=== PATIENT | female | born 1965 ===

== ENCOUNTER 2024-07-24 09:40 | Inpatient (IN) | payer MEDICARE, MEDICAID, SELFPAY ==
[2024-07-24] VITALS (7 sets, daily range): BP systolic 127–149; BP diastolic 68–78; PULSE 78–104; RESP 16–20; TEMP 36.6–38.7; O2SAT 94–98; BMI 26.6; BMI 26.7
--- NOTE | 2024-07-24 10:27 | XR_ITS ---
Examination: Foot, left, 3 views Technique: AP, oblique, lateral views foot, 3 views Date and time of exam: July 24, 2024 1050 hours Comparison February 15, 2022 INDICATIONS: Patient stepped on a nail 3 weeks ago with redness swelling and pain involving the foot FINDINGS: Soft tissue infection with air density between the first and second digits, soft tissue swelling about the first and second digits No matt cortical bone destruction No opaque foreign body IMPRESSION: Soft tissue infection as above As clinically warranted, MRI foot without contrast follow-up would best assess for osteomyelitis, soft tissue abscess
--- NOTE | 2024-07-24 10:27 | PD.EDRME ---
Rapid Medical Screening Exam RME Arrival date/time: 07/24/24 09:40 58-year-old female presents emergency department complains of infection to left foot patient is febrile tachycardic Sepsis workup initiated Chief Complaint: Ankle/Foot Injury Time Seen by Provider: 07/24/24 09:43 Vital signs: Vital Signs Temperature 101.7 F H 07/24/24 10:23 Pulse Rate 104 H 07/24/24 10:23 Respiratory Rate 20 07/24/24 10:23 Blood Pressure 148/75 H 07/24/24 10:23 Pulse Oximetry (%) 96 07/24/24 10:23 Oxygen Delivery Method Room Air 07/24/24 10:23
[2024-07-24 11:06] LABS: Lactate (Lactic Acid) 1.1 mMol/L (0.4-2.0)
[2024-07-24 11:10] LABS: Basophils # (Auto) 0.1 Thou/mm3 (0.0-0.2); Basophils % (Auto) 0 % (0-2.5); Eosinophils # (Auto) 0.1 Thou/mm3 (0.0-0.5); Eosinophils % (Auto) 0 % (0-10); Hematocrit 26.7 % (36.0-46.0); Hemoglobin 8.9 g/dL (12.0-16.0); Immature Granulocytes % (Auto) 1 % (0-0); Immature Granulocytes Auto 0.19 Thou/mm3 (0.00-0.00); Lymphocytes # (Auto) 1.5 Thou/mm3 (1.0-4.8); Lymphocytes % (Auto) 7 % (10-50); Mean Corpuscular HGB Conc 33.3 g/dl (31.0-37.0); Mean Corpuscular Hemoglobin 26.6 pg (25.0-35.0); Mean Corpuscular Volume 80 fL (80-100); Monocytes # (Auto) 1.4 Thou/mm3 (0.0-0.8); Monocytes % (Auto) 6 % (0-12); Neutrophils % (Auto) 86 % (37-80); Nucleated Red Blood Cell % 0 /100 WBC (0); Platelet Count 509 Thou/mm3 (140-440); RDW Standard Deviation 34.8 fL (36.4-46.3); Red Blood Count 3.34 Miln/mm3 (4.00-5.20); White Blood Count 22.2 Thou/mm3 (3.6-11.0)
[2024-07-24 11:21] LABS: Glucose Estimated Average 266 mg/dL (80-131); Hemoglobin A1C 10.9 % Hgb (4.8-6.0)
[2024-07-24 11:27] LABS: Sed Rate (ESR) 25 mm/hr (0-30)
[2024-07-24 11:33] LABS: INR 1.1 (0.9-1.3); Partial Thromboplastin Time 29.4 Seconds (22.0-36.0); Prothrombin Time 11.5 Seconds (9.0-12.2)
[2024-07-24 11:47] LABS: Alanine Aminotransferase 23 U/L (10-49); Albumin, Serum 4.2 gm/dL (3.5-5.0); Albumin/Globulin Ratio 1.4 (1.2-2.2); Alkaline Phosphatase 81 U/L (46-116); Anion Gap 9 (7-16); Aspartate Amino Transferase 17 U/L (0-34); BUN/Creatinine Ratio 13 Ratio (12-20); Bilirubin,Total 0.3 mg/dL (0.3-1.2); Blood Urea Nitrogen 13 mg/dL (9-23); Calcium 9.1 mg/dL (8.3-10.6); Calcium (Corrected) 9.1 mg/dL (8.5-10.1); Carbon Dioxide 27.9 mMol/L (20.0-31.0); Chloride 94 mMol/L (98-107); Estimated Creatinine Clearance 59.7 mL/min (>60); Glucose 82 mg/dL (74-106); Osmolality,Calculated 261 (275-295); Potassium 3.7 mMol/L (3.4-5.1); Procalcitonin 0.14 ng/ml (0.0-0.49); Sodium 131 mMol/L (136-145); Total Protein 7.2 gm/dL (5.7-8.2); eGFR > 60 See Note
--- NOTE | 2024-07-24 12:43 | EDNOTE_ITS ---
ED General RME/HPI General Chief complaint: Ankle/Foot Injury Stated complaint: LEFT FOOT DIABETIC WOUND Time Seen by Provider: 07/24/24 09:43 Arrival date/time: 07/24/24 09:40 CC: Left foot pain redness swelling tenderness HPI ongoing for the past several weeks worse in the last 24 hours referred from wound management for further evaluation patient is a known diabetic. Has been seen by Dr. Goss for amputation of a toe on the right foot left for foot is currently the problem. The patient denies fever chills blood sugars been running at 300 at home states she is not not able to get it down pain is 6-8 on a 10 scale radiating up the ankle. RME / HPI RME / HPI narrative: 07/24/24 09:40 58-year-old female presents emergency department complains of infection to left foot patient is febrile tachycardic Sepsis workup initiated Related Data Home Medications ?Medication ?Instructions ?Recorded ?Confirmed gabapentin 800 mg tablet 800 mg PO TID 12/29/20 02/23/22 amlodipine 10 mg tablet 1 tab PO QDAY 02/23/22 02/23/22 atorvastatin 40 mg tablet 1 tab PO HS 02/23/22 02/23/22 insulin glargine 100 unit/mL (3 50 unit subcut HS 02/23/22 02/23/22 mL) subcutaneous pen (Basaglar KwikPen U-100 Insulin) levetiracetam 500 mg tablet 1 tab PO BID 02/23/22 02/23/22 lisinopril 40 mg tablet 1 tab PO QDAY 02/23/22 02/23/22 loratadine 10 mg tablet 10 mg PO QDAY PRN ALLERGIES 02/23/22 02/23/22 oxcarbazepine 300 mg tablet 2 tab PO BID 02/23/22 02/23/22 semaglutide 0.25 mg or 0.5 mg (2 0.25 mg subcut QWEEK 02/23/22 02/23/22 mg/1.5 mL) subcutaneous pen injector (Ozempic) Allergies Allergy/AdvReac Type Severity Reaction Status Date / Time animal dander Allergy Severe Swelling Verified 07/24/24 09:41 of Lip/Tongue/Throat bacitracin Allergy Severe Blister Verified 07/24/24 09:41 honey Allergy Severe Swelling Verified 07/24/24 09:41 of Lip/Tongue/Throat sucralose Allergy Severe Swelling Verified 07/24/24 09:41 [From Splenda (sucralose)] of Lip/Tongue/Throat Artificial Sweetener Allergy Severe Swelling Uncoded 07/24/24 09:41 of Lip/Tongue/Throat Review of Systems Review of Systems Narrative Review of Systems: GEN: No fever, no chills, no weight loss EYES: No discharge, no visual changes, no pain HEENT: No ear pain, no congestion, no sore throat PULM: No shortness of breath, no cough, no congestion CV: No chest pain, no dyspnea on exertion, no palpitations GI: No nausea, no vomiting, no diarrhea, no pain, no constipation : No frequency, no urgency, no dysuria MUSC/SKEL: + joint pain, no back pain SKIN: No rash PSYCH: No hallucinations, no depression HEME/LYMPH: No easy bleeding or bruising tendencies NEURO: No weakness, no headache Past Medical History Past Medical History NEUROLOGIC: Positive Neurological Disorders, Brain Tumor and Seizures CARDIAC: Negative Cardiac Disorders or Congestive Heart Failure RESPIRATORY: Negative Chronic Obstructive Pulmonary Disease (COPD) or Asthma GASTROINTESTINAL: Negative Gastrointestinal Disorders GENITOURINARY: Negative Genitourinary Disorders or Renal Disease REPRODUCTIVE: Positive Previous Pregnancies MUSCULOSKELETAL: Positive Musculoskeletal Disorders and Osteoporosis ENT: Positive Cataracts ENDOCRINE: Positive Endocrine Disorders and Diabetes Mellitus Type 2; Negative Diabetes Mellitus Type 1 HEMATOLOGIC: Negative Blood Disorders or Sickle Cell Disease OTHER HISTORY: Positive Chicken Pox; Negative Anesthesia Reactions Family History FAMILY HISTORY: Positive Family Cardiac Disorders and Family Cancer Surgical History SURGICAL: Positive Amputation, Neurologic Surgery and Section Social History SMOKING STATUS: Never smoker SECOND HAND EXPOSURE: No ED Exam Narrative Physical exam: [General: In moderate discomfort not in any acute distress Head normocephalic HEENT: Within acceptable limits Neck is supple nontender Chest equal chest rise nontender to palpation Respiratory: Clear to auscultation no wheezes crackles or rubs CV: Rate rhythm is regular no murmurs rubs or clicks Abdomen is distended secondary to body habitus soft nontender no masses positive bowel sounds all 4 quadrants Back: No CVA tenderness no spinous process tenderness from cervical spine thoracic and lumbar spine Skin: Small open lesions to the left foot but has extensive exudative material underneath the skin on the pad of the foot from the base of the second third and fourth digits extending medially into the arch, all with surrounding erythema that extends over the dorsum of the foot and streaking up the anterior surface of the ankle into the lower leg. Otherwise skin is intact no petechiae rash induration ulceration or crepitus Extremities: Decreased range of motion of the toes in the left foot secondary to pain within the foot. Otherwise moving all extremities against resistance cap refill less than 2 seconds neurosensory intact Neuro: Awake alert oriented x3 Glascow coma 15 no focal deficits] Course Course Course Narrative: Patient seen in the ER by Dr. Goss agrees to consult and will take the patient to the OR tomorrow making the patient n.p.o. after midnight. Quality Measures none Orders Category Date Time Status Consult to General Surgery Stat Cons 07/24/24 14:[address] foot LT wo con Stat Exams 07/24/24 14:35 Ordered XR foot comp LT min 3V Stat Exams 07/24/24 10:27 Completed A1C [Glycohemoglobin w (eAG)] Stat Lab 07/24/24 10:35 Completed Blood Culture (Lab) Stat Lab 07/24/24 10:35 Received CBC Stat Lab 07/24/24 10:35 Completed CMP [Comprehensive Metabolic Panel] Stat Lab 07/24/24 10:35 Completed CRP [C-Reactive Protein] Stat Lab 07/24/24 10:35 Completed ESR [Sed Rate (ESR)] Stat Lab 07/24/24 10:35 Completed Lactic Acid [Lactate (Lactic Acid)] Stat Lab 07/24/24 10:35 Completed PT [Prothrombin Time with INR] Stat Lab 07/24/24 10:35 Completed PTT [Partial Thromboplastin Time] Stat Lab 07/24/24 10:35 Completed Procalcitonin Stat Lab 07/24/24 10:35 Completed UA, C/S IF [Urinalysis, C/S if Indicated] Stat Lab 07/24/24 12:47 Completed Morphine Inj Med 07/24/24 12:40 Discontinued 4 mg IVP X1 ONE Ondansetron Inj [Zofran Inj] Med 07/24/24 12:40 Discontinued 4 mg IV X1 ONE Piper/Tazo 3.375 gm [Zosyn] 50 ml Med 07/24/24 12:45 Discontinued IV X1 Vital Signs Vital signs: Vital Signs Temperature 101.7 F H 07/24/24 10:23 Pulse Rate 104 H 07/24/24 10:23 Respiratory Rate 20 07/24/24 10:23 Blood Pressure 148/75 H 07/24/24 10:23 Pulse Oximetry (%) 96 07/24/24 10:23 Oxygen Delivery Method Room Air 07/24/24 10:23 [facility] Patient data External records reviewed:: [facility] previous records Clinical information provided by:: patient Social determinants that could affect healthcare access:: none Patient has the following chronic illnesses:: Diabetes peripheral neuropathy How is presenting disease/condition affected by chronic disease/condition?: e xacerbated by Evaluation data The following diagnostics were reviewed and interpreted by me:: lab results, radiology exam(s) and EKG tracing(s) Lab and/or radiology exams considered but not ordered:: CBC shows leukocytosis of 22.2 H&H of 8.9 and 26.7 with platelets at 509 CMP shows a sodium 131 potassium 3.4 chloride of 94 CO2 27.9 BUN of 13 creatinine 1.0 with a glucose of 266 CRP is 16.0 Pro-Sony is 0.14. Lactic at 1.1 Soft tissue issues but no overt sign of osteomyelitis. Interpretation Summary: Significant abscess with cellulitis of the left foot. Yes Medications Medications considered but not ordered:: None Medication administrations:: Medication Administration History Discontinued Medications Piperacillin/Tazobactam/Dextrose (Zosyn) 50 mls @ 100 mls/hr IV X1 ONE Stop: 07/24/24 13:14 Last Infusion: 07/24/24 14:04 Dose: Infused Documented By: Admin: 07/24/24 13:13 Dose: 100 mls/hr Documented By: TOYIN Morphine Sulfate (Morphine Sulf Inj 10 Mg/Ml Vial) 4 mg IVP X1 ONE Stop: 07/24/24 12:41 Last Admin: 07/24/24 13:13 Dose: 4 mg Documented By: TOYIN Ondansetron HCl (Ondansetron Inj 2 Mg/Ml Inj 2 Ml) 4 mg IV X1 ONE; Protocol Stop: 07/24/24 12:41 Last Admin: 07/24/24 13:13 Dose: 4 mg Documented By: TOYIN None Consultations Consultation(s) initiated? (list below): Yes Diagnosis Differential Diagnosis ED Complaint MDM: Foot cellulitis foot abscess osteomyelitis Most likely diagnosis given after review of the tests above:: Foot cellulitis Admission Indicated Admission indicated?: indicated Explain why admission is indicated or not indicated:: Further surgical and medical management Admission Request Was there a request for admission?: No Disposition Plan Disposition Plan: Admit Medical Decision Making Differential Diagnosis Differential Diagnosis: Foot cellulitis foot abscess osteomyelitis Lab Data 07/24/24 10:35 07/24/24 10:35 Labs: Lab Results 07/24/24 07/24/24 Range/Units 10:35 12:47 WBC 22.2 H (3.6-11.0) Thou/mm3 RBC 3.34 L (4.00-5.20) Miln/mm3 Hgb 8.9 L (12.0-16.0) g/dL Hct 26.7 L (36.0-46.0) % MCV 80 (80-100) fL MCH 26.6 (25.0-35.0) pg MCHC 33.3 (31.0-37.0) g/dl RDW Std Deviation 34.8 L (36.4-46.3) fL Plt Count 509 H (140-440) Thou/mm3 Neut % (Auto) 86 H (37-80) % Lymph % (Auto) 7 L (10-50) % [place] % (Auto) 6 (0-12) % Eos % (Auto) 0 (0-10) % Baso % (Auto) 0 (0-2.5) % Neut # (Auto) 19.0 H (1.8-7.7) Thou/mm3 Lymph # (Auto) 1.5 (1.0-4.8) Thou/mm3 [place] # (Auto) 1.4 H (0.0-0.8) Thou/mm3 Eos # (Auto) 0.1 (0.0-0.5) Thou/mm3 Baso # (Auto) 0.1 (0.0-0.2) Thou/mm3 Immature Gran # (Auto) 0.19 H (0.00-0.00) Thou/mm3 Absolute Nucleated RBC 0.00 (0.00-0.00) Thou/mm3 Immature Gran % 1 H (0-0) % Nucleated RBC % 0 (0) /100 WBC ESR 25 (0-30) mm/hr PT 11.5 (9.0-12.2) Seconds INR 1.1 (0.9-1.3) APTT 29.4 (22.0-36.0) Seconds Sodium 131 L (136-145) mMol/L Potassium 3.7 (3.4-5.1) mMol/L Chloride 94 L (98-107) mMol/L Carbon Dioxide 27.9 (20.0-31.0) mMol/L Anion Gap 9 (7-16) BUN 13 (9-23) mg/dL Creatinine 1.0 (0.6-1.3) mg/dL Estim Creat Clear Calc 59.7 L (>60) mL/min eGFR > 60 (60 - ) See Note BUN/Creatinine Ratio 13 (12-20) Ratio Glucose 82 (74-106) mg/dL Estimated Ave Glu mg/dL 266 H (80-131) mg/dL Hemoglobin A1c 10.9 H (4.8-6.0) % Hgb Calculated Osmolality 261 L (275-295) Lactic Acid 1.1 (0.4-2.0) mMol/L Calcium 9.1 (8.3-10.6) mg/dL Corrected Calcium 9.1 (8.5-10.1) mg/dL Total Bilirubin 0.3 (0.3-1.2) mg/dL AST 17 (0-34) U/L ALT 23 (10-49) U/L Alkaline Phosphatase 81 (46-116) U/L C-Reactive Prot, Quant 16.0 H (0.0-0.9) mg/dL Total Protein 7.2 (5.7-8.2) gm/dL Albumin 4.2 (3.5-5.0) gm/dL Globulin 3.0 (2.3-3.5) gm/dL Albumin/Globulin Ratio 1.4 (1.2-2.2) Procalcitonin 0.14 (0.0-0.49) ng/ml Ur Collection Type Clean Catch Urine Color Lt-Yellow (Lt Yel-Yel) Urine Clarity Clear (Clear/Hazy) Urine pH 6.5 (5.0-7.0) Ur Specific [place] 1.013 (1.001-1.035) Urine Protein 2+ A (Neg - Trace) Urine Glucose (UA) 3+ A (Negative) Urine Ketones Negative (Negative) Urine Blood 1+ A (Negative) Urine Nitrite Negative (Negative) Urine Bilirubin Negative (Negative) Urine Urobilinogen (Auto) Negative (0.0-1.0) mg/dL Ur Leukocyte Esterase Negative (Negative) Urine RBC 5 H (0-3) /hpf Urine WBC 9 H (0-5) /hpf Ur Squamous Epith Cells 11 H (0-5) /hpf Urine Bacteria None (None) Ur Culture Indicated? Not Indicated Discharge Plan Plan Patient Disposition: Other Care w/in Hosp ([facility]) Prescriptions/Referrals Prescriptions/Med Rec: No Action atorvastatin 40 mg tablet 1 tab PO HS Patient Comments: TAKE 1 TABLET BY MOUTH EVERY DAY levetiracetam 500 mg tablet 1 tab PO BID Patient Comments: TAKE 1 TABLET BY MOUTH TWICE A DAY oxcarbazepine 300 mg tablet 2 tab PO BID Patient Comments: TAKE 2 TABLETS BY MOUTH TWICE A DAY amlodipine 10 mg tablet 1 tab PO QDAY Patient Comments: TAKE 1 TABLET BY MOUTH EVERY DAY lisinopril 40 mg tablet 1 tab PO QDAY Patient Comments: TAKE 1 TABLET BY MOUTH EVERY DAY loratadine 10 mg tablet 10 mg PO QDAY PRN (Reason: ALLERGIES) Patient Comments: TAKE 1 TABLET BY MOUTH DAILY NEEDED ALLERGIES insulin glargine [Basaglar KwikPen U-100 Insulin] 100 unit/mL (3 mL) insulin pen 50 unit SUBCUT HS Patient Comments: INJECT 50 UNITS SUBCUTANEOUSLY EVERY NIGHT Ozempic 0.25 mg or 0.5 mg(2 mg/1.5 mL) pen injector 0.25 mg SUBCUT QWEEK Patient Comments: INJECT 0.25MG UNDER THE SKIN 1 TIME A WEEK gabapentin 800 mg Tablet 800 mg PO TID Referrals: Maribell Metcalf FNP [Primary Care Provider] - In 1 week Problem List Clinical Impression: Cellulitis of left foot Patient/Caregiver Discharge Instructions Print Language: Lao Stand Alone Forms: Sharron Award Info., Patient Portal Info Letter PA/SCREENING REPRESENTATIVE Supervising Physician PA/SCREENING REPRESENTATIVE Supervising Physician: Hudson Perdomo ENP
[2024-07-24 12:55] LABS: Collection Type, Urine Clean Catch
[2024-07-24 13:11] LABS: Bilirubin,Urine Negative (Negative); Blood,Urine 1+ (Negative); Clarity,Urine Clear (Clear/Hazy); Color,Urine Lt-Yellow (Lt Yel-Yel); Culture Indicated,Urine Not Indicated; Glucose, Urine 3+ (Negative); Ketones,Urine Negative (Negative); Leukocyte Esterase,Urine Negative (Negative); Nitrite,Urine Negative (Negative); PH,Urine 6.5 (5.0-7.0); Protein,Urine 2+ (Neg - Trace); RBC,Urine 5 /hpf (0-3); Specific Gravity,Urine 1.013 (1.001-1.035); Squamous Epithelial Cell,Urine 11 /hpf (0-5); Urobilinogen,Urine Negative mg/dL (0.0-1.0); WBC,Urine 9 /hpf (0-5)
[2024-07-24] MEDS: MORPHINE SULF INJ 10 MG/ML VIAL 4 MG IVP (13:13)
[2024-07-24] MEDS: ONDANSETRON INJ 2 MG/ML INJ 2 ML 4 MG IV (13:13)
[2024-07-24] MEDS: PIPER/TAZO 3.375 GM 50 ML IV (13:13)
--- NOTE | 2024-07-24 14:35 | XR_ITS ---
Examination: CT left foot, without contrast. 2-D sagittal reconstructions. 2-D coronal reconstructions. 3-D reconstructions. Date and time of exam:July 24, 2024 1440 hours INDICATIONS: Left foot redness swelling and pain beginning 3 weeks ago CTDI: vol (mGy):4.7 DLP: (mGycm):138 Technique: Multiple 1.25 mm axial sections of the left foot have been obtained. 2-D sagittal and coronal reconstructions have been obtained. 3-D reconstructions have been obtained. Low dose protocols were performed. One or more of the following dose reduction techniques were used; automated exposure control, adjustment of the mA and/or KV according to patient size, use of iterative reconstruction technique. Findings: Soft tissue infection containing air densities between the proximal phalanges first and second digits Axial image 76, coronal image 39 suspicious for early cortical erosion involving the base of the proximal phalanx second digit No pathologic fracture No soft tissue infection with air density extends at the plantar aspect of the foot although way to the base of the first and second metatarsals Extensive edema Soft tissue defect plantar foot coronal image 43 IMPRESSION: Extensive soft tissue infection with gas-forming organisms as above Early osteomyelitis base of the proximal phalanx second digit Recommend MRI foot without contrast follow-up
--- NOTE | 2024-07-24 14:53 | PD.SURCONS ---
HPI Consult details Consult date: 07/24/24 Reason for consultation narrative: Left foot cellulitis with possible abscess History of present illness: 58-year-old female with history of diabetes and peripheral neuropathy has stepped on a nail about 3 weeks ago. She has noted some swelling and erythema of her left foot that has been getting progressively worse. She denies nausea, vomiting, fever or chills. She also denies drainage or bleeding from her wound. X-ray and CT scan revealed significant soft tissue infection. Patient started on IV antibiotics and admitted for further management. Review of Systems Constitutional Constitutional: Denies chills and Denies fever(s) Cardiovascular Cardiovascular: Denies chest pain Respiratory Respiratory: Denies cough Gastrointestinal Gastrointestinal: Denies abdominal pain, Denies nausea and Denies vomiting Genitourinary Genitourinary: Denies difficulty voiding Hematologic/Lymphatic Hematologic/Lymphatic: Denies easy bleeding and Denies easy bruising Past Medical History Surgical History OTHER SURGICAL HX: , craniotomy with excision of brain tumor, right second toe amputation Social History SMOKING STATUS: Former smoker SUBSTANCE USE: does not use ALCOHOL: Former Meds Home Medications and Allergies Home Medications ?Medication ?Instructions ?Recorded ?Confirmed ?Type gabapentin 800 mg tablet 800 mg PO TID 12/29/20 07/24/24 History insulin degludec 200 unit/mL (3 10 unit subcut QDAY 07/24/24 07/24/24 History mL) subcutaneous pen (Tresiba FlexTouch U-200 insulin) insulin lispro 100 unit/mL 10 unit subcut 3XD 07/24/24 07/24/24 History subcutaneous pen (Humalog KwikPen (U-100) Insulin) semaglutide 7 mg tablet (Rybelsus) 7 mg PO QDAY 07/24/24 07/24/24 History Allergies Allergy/AdvReac Type Severity Reaction Status Date / Time animal dander Allergy Severe Swelling Verified 07/24/24 09:41 of Lip/Tongue/Throat bacitracin Allergy Severe Blister Verified 07/24/24 09:41 honey Allergy Severe Swelling Verified 07/24/24 09:41 of Lip/Tongue/Throat sucralose Allergy Severe Swelling Verified 07/24/24 09:41 [From Splenda (sucralose)] of Lip/Tongue/Throat Artificial Sweetener Allergy Severe Swelling Uncoded 07/24/24 09:41 of Lip/Tongue/Throat Exam Vital Signs Temp Pulse Resp BP Pulse Ox O2 Del Method 99.9 F 95 16 149/78 H 98 Room Air 07/24/24 12:23 07/24/24 12:23 07/24/24 12:23 07/24/24 12:23 07/24/24 12:23 07/24/24 12:23 Constitutional Constitutional: no acute distress Routine Extremities Exam Comments: Significant cellulitis and edema of left foot with a callus and blister formation on the plantar aspect. She has palpable dorsalis pedis and posterior tibial pulses Results Results: Laboratory Laboratory results: results reviewed Results: Imaging Imaging narrative: X-ray and CT scan images reviewed, radiologist interpretation noted Assessment & Plan Problem List (1) Cellulitis of left foot: Status: Acute Plan Continue IV antibiotics. Keep patient n.p.o. after midnight for incision and drainage. Risks include but not limited to infection, bleeding, chronic nonhealing wound, need for further procedure and or operation discussed with the patient. Benefits and alternatives explained to her, all her questions answered, she agreed and consented to proceed with the operation.
--- NOTE | 2024-07-24 15:11 | PC.NURSE ---
Patient states pain 9/10. Informed ER provider and received verbal order for 0.5mg hydromorphone
[2024-07-24] MEDS: HYDROmorphone INJ 2 MG/ML VIAL 0.5 MG IVP (15:23)
--- NOTE | 2024-07-24 15:34 | ESHP_ITS ---
<Statement entered by Kojo Valdivia MD - 08/04/24 13:37> I reviewed above note and agree with findings and plans. I have also personally examined the patient with medicine team and went over assessment and plan with medical team including internet marketing specialist and resident physician. Documentation for date of: 07/24/24 HPI History of Present Illness History of present illness: This is a pleasant 76-year-old female with PMHx of longstanding T2DM on INSULIN, severe peripheral neuropathy, seasonal allergies, presenting with left foot swelling and pain. 3 weeks ago, she was walking around her house when she stepped on the [place] of the nail which punctured through her shoes. She has severe peripheral neuropathy, initially did not feel any pain nor noted any swelling. However, over the next few days. She noted increased swelling and purulent discharge for which she was seen by her PCP who prescribed CEFAZOLIN and she was referred to wound care. Last night she experienced new symptoms including fever, chills, and worsening redness over her left foot extending below her ankle as well as increased swelling and discharge. She was seen at wound care today who recommended going to ED. Endorsing fever and chills that started last night. Denies headaches, visual changes, chest pain, shortness of breath, GI or urinary symptoms. She is unclear on when her last tetanus shot was done. ED COURSE: T101.7, HR 104, BP 148/75, RR 20, on room air satting 96%. WBC 22.2, Hgb 8.9, PLT 509, normal coag studies. Sodium 131, CRP 16, GLUCOSE 82, A1c 10.9. Normal creatinine and lactic acid. Right foot x-ray showed soft tissue infection with air density between first and second digit, soft tissue swelling above the first and second digit, no cortical bone destruction. UA was negative for UTI. ED gave ZOSYN x 1. Will admit the patient to [facility] for OR with general surgery tomorrow. PMHx: T2DM on INSULIN, peripheral neuropathy, seasonal allergies PSHx: None MEDS: INSULIN, JARDIANCE, ALLERGIES: METFORMIN, OZEMPIC, INSULIN LANTUS, honey, artificial sweeteners SH: Denies alcohol, tobacco or drug use. Exam Vital Signs Temp Pulse Resp BP Pulse Ox O2 Del Method 99.9 F 95 16 149/78 H 98 Room Air 07/24/24 12:23 07/24/24 12:23 07/24/24 12:23 07/24/24 12:23 07/24/24 12:23 07/24/24 12:23 Narrative Exam GENERAL * Normal-appearing middle-aged female, no apparent distress. HEENT * NCAT.?KENDALL. Oral mucosa is moist. Patent Nares NECK * Supple, nontender, no thyromegaly, no meningismus, no JVD, no step offs CHEST * RRR, no m/g/r * CTAB, no w/r/r. Symmetrical chest rise. No intercostal subcostal retraction * Atraumatic, nontender, no crepitus, symmetrical expansion. ABDOMEN * Soft, flat, nontender. No guarding/rebound tenderness/masses. * Bowel sounds presents EXTREMITIES * Nontender, no cyanosis, no edema * No edema/cyanosis.? * Left foot: Diffuse erythema, swelling, warmth and tenderness extending below the ankle. Puncture wound on plantar aspect, 1 cm in diameter with active serous drainage. There are 2 distinct collections of fluid pockets around the puncture wound with serous and some purulent discharge. * Dorsalis pedis is 2+ bilaterally. * Absent sensation in all distal fingers including upper and lower extremities. Sensation intact over dorsal foot bilaterally. SKIN * Warm and dry, no jaundice/rashes. NEUROMUSCULAR * No lumbar or midline, no CVA, no paraspinal muscle spasm or tenderness. * Moves all 4 extremities well, with full ROM and good CSM. * VILCHIS x4, CN II-XII grossly intact. * No focal neurologic deficits. PSYCHIATRY * Normal mood and affect, cooperative, no SI or HI or hallucinations. Results: Labs 07/24/24 10:35 07/24/24 10:35 Labs: Short CBC 07/24/24 Range/Units 10:35 WBC 22.2 H (3.6-11.0) Thou/mm3 Hgb 8.9 L (12.0-16.0) g/dL Hct 26.7 L (36.0-46.0) % Plt Count 509 H (140-440) Thou/mm3 BMP 07/24/24 10:35 Sodium 131 L Potassium 3.7 Chloride 94 L Carbon Dioxide 27.9 BUN 13 Creatinine 1.0 Glucose 82 Calcium 9.1 Liver Function 07/24/24 Range/Units 10:35 Total Bilirubin 0.3 (0.3-1.2) mg/dL AST 17 (0-34) U/L ALT 23 (10-49) U/L Alkaline Phosphatase 81 (46-116) U/L Albumin 4.2 (3.5-5.0) gm/dL Urine 07/24/24 Range/Units 12:47 Urine Color Lt-Yellow (Lt Yel-Yel) Urine Clarity Clear (Clear/Hazy) Urine pH 6.5 (5.0-7.0) Ur Specific [place] 1.013 (1.001-1.035) Urine Protein 2+ A (Neg - Trace) Urine Glucose (UA) 3+ A (Negative) Quality Measures Quality Measures none Medications Home Medications and Allergies Home Medications ?Medication ?Instructions ?Recorded ?Confirmed ?Type gabapentin 800 mg tablet 800 mg PO TID 12/29/20 07/24/24 History insulin degludec 200 unit/mL (3 10 unit subcut QDAY 07/24/24 07/24/24 History mL) subcutaneous pen (Tresiba FlexTouch U-200 insulin) insulin lispro 100 unit/mL 10 unit subcut 3XD 07/24/24 07/24/24 History subcutaneous pen (Humalog KwikPen (U-100) Insulin) semaglutide 7 mg tablet (Rybelsus) 7 mg PO QDAY 07/24/24 07/24/24 History Allergies Allergy/AdvReac Type Severity Reaction Status Date / Time animal dander Allergy Severe Swelling Verified 07/24/24 09:41 of Lip/Tongue/Throat bacitracin Allergy Severe Blister Verified 07/24/24 09:41 honey Allergy Severe Swelling Verified 07/24/24 09:41 of Lip/Tongue/Throat sucralose Allergy Severe Swelling Verified 07/24/24 09:41 [From Splenda (sucralose)] of Lip/Tongue/Throat Artificial Sweetener Allergy Severe Swelling Uncoded 07/24/24 09:41 of Lip/Tongue/Throat Visit Medications Acetaminophen (Acetaminophen 325 Mg Tablet) 650 mg PO Q6H PRN PRN Reason: PAIN SCALE 1-3 (mild Stop: 08/23/24 15:14 Acetaminophen (Acetaminophen 325 Mg Tablet) 650 mg PO Q6H PRN PRN Reason: Fever >100 Stop: 08/23/24 15:14 Hydrocodone Bitart/Acetaminophen (Hydrocodone/Apap 10/325 Tab) 1 tab PO Q4HR PRN PRN Reason: PAIN SCALE 7-10 (Severe Stop: 07/29/24 15:14 Gabapentin 200 mg/ Gabapentin (600 mg) 800 mg PO TID [facility] Stop: 08/23/24 15:29 Heparin Sodium (Porcine) (Heparin Sod Inj 5000 Unit/Ml Vial) 5,000 unit SC Q8HR JASVIR Stop: 08/07/24 21:59 Montelukast Sodium (Montelukast Sodium 10 Mg Tablet) 10 mg PO HS [facility] Stop: 08/23/24 20:59 Ondansetron HCl (Ondansetron Inj 2 Mg/Ml Inj 2 Ml) 4 mg IV Q6H PRN; Protocol PRN Reason: NAUSEA OR VOMITING Stop: 08/23/24 15:14 Oxycodone/Acetaminophen (Oxycodone/Apap 5/325 Tablet) 1 tab PO Q6H PRN PRN Reason: PAIN SCALE 4-6 (Moderate Stop: 07/29/24 15:14 Pantoprazole Sodium (Pantoprazole Inj 40 Mg Vial) 40 mg IVP QDAY [facility] Stop: 08/23/24 15:14 Discontinued Medications Gabapentin (Gabapentin 300 Mg Capsule) 800 mg PO TID [facility] Stop: 08/23/24 15:29 Hydromorphone HCl (Hydromorphone Inj 2 Mg/Ml Vial) 0.5 mg IVP X1 ONE Stop: 07/24/24 15:14 Last Admin: 07/24/24 15:23 Dose: 0.5 mg Piperacillin/Tazobactam/Dextrose (Zosyn) 50 mls @ 100 mls/hr IV X1 ONE Stop: 07/24/24 13:14 Last Infusion: 07/24/24 14:04 Dose: Infused Morphine Sulfate (Morphine Sulf Inj 10 Mg/Ml Vial) 4 mg IVP X1 ONE Stop: 07/24/24 12:41 Last Admin: 07/24/24 13:13 Dose: 4 mg Ondansetron HCl (Ondansetron Inj 2 Mg/Ml Inj 2 Ml) 4 mg IV X1 ONE; Protocol Stop: 07/24/24 12:41 Last Admin: 07/24/24 13:13 Dose: 4 mg Assessment & Plan Plan In summary: 58-year-old female with PMHx of T2 IDDM admitted for right foot abscess. Patient is n.p.o. for the OR with general surgery tomorrow. Appreciate recommendations from general surgery. Sepsis 2/2 Left foot abscess Left foot cellulutis Presenting 3 weeks after stepping on a nail while wearing her shoes. She was seen by PCP who prescribed a course of ANTIBIOTICS, was following wound care. Denied for admission. She was experiencing stomach symptoms of fever and chills as well as worsening swelling and discharge from her left foot. Met 2/4 sepsis with tachycardia, tachypnea, and leukocytosis and a source of infection. Right foot x-ray showed soft tissue infection with air density between first and second digit, soft tissue swelling above the first and second digit, no cortical bone destruction. Will continue broad ANTIBIOTIC coverage, including antipseudomonal. No indication for aggressive fluid resuscitation, normal creatinine, no lactic acidosis. Will proceed with 1 L bolus. Patient scheduled OR with Dr Goss tomorrow morning. ? Ordered tetanus shot (tetanus shot >10 years ago) ? Continue ZOSYN 3.375 mg Q6H (07/24 to present) ? Continue VANCOMYCIN daily (07/24 to present) ? NPO at midnight ? Morning coags ? Wound care ? Pending CT RLE ? Pending blood cultures T2 IDDM On admission, A1c 10.9, GLUCOSE 82. Home meds include RYBELSUS, TRESIBA 15 HS, lispro 10 TID. Patient has allergy to LANTUS and METFORMIN. ? Continue TRESIBA 15 units HS (patient's home med) ? Continue LISPRO 10 units TID ? Continue sliding scale ? Accu-Cheks Severe peripheral neuropathy Chronic, absent sensation of distal digits in both bilateral UE/LE. ? Continue home GABAPENTIN 800 mg TID HTN (resolved) Denies history of hypertension. Currently not taking any ANTIHYPERTENSIVE medication. Admission BP 148/75, resolved. Currently normotensive. Allergic rhinitis ? Continue LORATADINE 10 mg daily ? Continue MONTELUKAST 10 mg HS Health maintenance Diet: NPO midnight 07/25, CHO consistent GI prophylaxis: PROTONIX DVT prophylaxis: HEPARIN, hold midnight 07/25 Antibiotics: ZOSYN, VANCOMYCIN CODE STATUS: DNR Disposition: OR with general surgery Patient case was discussed with attending, Dr. Kojo Valdivia MD and senior residents Dr. Chambers and Dr. Alex. Dianna Mosley DO PGYI Senior Resident Attestation: The patient is a 76-year-old female with significant past medical history of insulin-dependent diabetes mellitus type 2, severe peripheral neuropathy, seasonal allergy, presented with left foot swelling and puncture injury 3 weeks ago was found to have sepsis secondary to left foot abscess and cellulitis. The patient received 1 L of IV bolus fluid, and was started on vancomycin and Zosyn. General surgeon Dr. Goss was consulted who recommended admitting the patient and keeping the patient n.p.o. after midnight. The plan is to perform I&D along with debridement tomorrow morning. As the patient is allergic to Lantus, we asked the patient to bring her Tresiba from home, and will continue with insulin lispro 10 units 3 times daily. We will continue with home gabapentin 800 Mg 3 times daily. Her other home medicine for allergic rhinitis those were loratadine 10 mg and montelukast 10 mg were continued. I discussed with and supervised the internet marketing specialist physician involved in the care of this patient. I personally saw and examined the patient and discussed the assessment and plan with the entire medicine team, including my attending. I agree with the assessment and plan as documented above. Anson Alex MD PGY2 Internal Medicine
[2024-07-24] MEDS: GABAPENTIN 200 MG, GABAPENTIN 600 MG 800 MG PO (17:03)
[2024-07-24] MEDS: PANTOPRAZOLE INJ 40 MG VIAL IVP (17:05)
[2024-07-24] MEDS: SODIUM CHLORIDE 0.9% 1000 ML 1,000 ML 999 ML IV (17:41)
[2024-07-24] MEDS: VANCOMYCIN/NS 1 GM IVPB 200 ML IV (17:42)
[2024-07-24] MEDS: TETANUS,DIPHTHERIA TOXOIDS/PF (ADULT) 0.5 ML SYRINGE IMi (17:43)
--- NOTE | 2024-07-24 19:33 | PC.NURSE ---
1st contact: Son Shola [phone]; 2nd son Tahir [phone]; Mela Tuttle [phone]
[2024-07-24] MEDS: MONTELUKAST SODIUM 10 MG TABLET PO (21:02)
[2024-07-24] MEDS: HYDROcodone/APAP 10/325 TAB PO (21:02)
[2024-07-24] MEDS: TRESIBA 200 UNIT/ML SC (22:08)
[2024-07-24] MEDS: GABAPENTIN 800 MG TABLET SC (22:32)
[2024-07-24] MEDS: PIPER/TAZO 3.375 GM 3.375 GM/50 ML BAG IV (22:34)
[2024-07-24] MEDS: HEPARIN SOD INJ 5000 UNIT/ML VIAL SC (22:44)
[2024-07-25] VITALS (16 sets, daily range): BP systolic 102–128; BP diastolic 57–78; PULSE 74–87; RESP 12–18; TEMP 36.4–36.9; O2SAT 93–100; BMI 26.6
[2024-07-25] MEDS: HYDROcodone/APAP 10/325 TAB PO ×2 (05:50→21:21)
[2024-07-25 06:07] LABS: Basophils # (Auto) 0.1 Thou/mm3 (0.0-0.2); Basophils % (Auto) 0 % (0-2.5); Eosinophils # (Auto) 0.2 Thou/mm3 (0.0-0.5); Eosinophils % (Auto) 1 % (0-10); Hematocrit 22.2 % (36.0-46.0); Immature Granulocytes % (Auto) 1 % (0-0); Lymphocytes # (Auto) 1.5 Thou/mm3 (1.0-4.8); Lymphocytes % (Auto) 10 % (10-50); Mean Corpuscular HGB Conc 32.9 g/dl (31.0-37.0); Mean Corpuscular Hemoglobin 26.9 pg (25.0-35.0); Mean Corpuscular Volume 82 fL (80-100); Monocytes # (Auto) 0.8 Thou/mm3 (0.0-0.8); Monocytes % (Auto) 5 % (0-12); Neutrophils % (Auto) 82 % (37-80); Nucleated Red Blood Cell % 0 /100 WBC (0); Platelet Count 388 Thou/mm3 (140-440); RDW Standard Deviation 36.3 fL (36.4-46.3); Red Blood Count 2.71 Miln/mm3 (4.00-5.20); White Blood Count 14.6 Thou/mm3 (3.6-11.0)
[2024-07-25] MEDS: PIPER/TAZO 3.375 GM 3.375 GM/50 ML BAG IV ×3 (06:10→21:23)
[2024-07-25 06:15] LABS: Prothrombin Time 11.4 Seconds (9.0-12.2)
[2024-07-25 06:16] LABS: Hemoglobin 7.3 g/dL (12.0-16.0)
[2024-07-25 06:51] LABS: Alanine Aminotransferase 17 U/L (10-49); Albumin, Serum 3.3 gm/dL (3.5-5.0); Albumin/Globulin Ratio 1.3 (1.2-2.2); Alkaline Phosphatase 62 U/L (46-116); Anion Gap 7 (7-16); Aspartate Amino Transferase 16 U/L (0-34); BUN/Creatinine Ratio 14 Ratio (12-20); Bilirubin,Total 0.2 mg/dL (0.3-1.2); Blood Urea Nitrogen 17 mg/dL (9-23); Calcium 8.5 mg/dL (8.3-10.6); Calcium (Corrected) 9.1 mg/dL (8.5-10.1); Chloride 98 mMol/L (98-107); Creatinine (Component) 1.2 mg/dL (0.6-1.3); Estimated Creatinine Clearance 49.9 mL/min (>60); Globulin 2.6 gm/dL (2.3-3.5); Glucose 138 mg/dL (74-106); Magnesium 1.6 mg/dL (1.6-2.6); Osmolality,Calculated 269 (275-295); Phosphorous 4.3 mg/dL (2.4-5.1); Potassium 4.2 mMol/L (3.4-5.1); Sodium 133 mMol/L (136-145); Total Protein 5.9 gm/dL (5.7-8.2); eGFR 53 See Note
--- NOTE | 2024-07-25 08:12 | PD.RESPRO ---
Documentation for date of: 07/25/24 Subjective Subjective Interval history: No acute overnight events. I saw patient after surgery. She feels hungry but well otherwise. No complaint of pain. Denies fever, chills, headaches, chest pain, sob, cough, GI or urinary symptoms. Exam Vital Signs Temp Pulse Resp BP Pulse Ox O2 Del Method 97.8 F 75 17 119/69 98 Room Air 07/25/24 04:00 07/25/24 04:00 07/25/24 04:00 07/25/24 04:00 07/25/24 04:00 07/25/24 04:00 Narrative Exam GENERAL Normal-appearing middle-aged female, no apparent distress. HEENT NCAT.?KENDALL. Oral mucosa is moist. Patent Nares NECK Supple, nontender, no thyromegaly, no meningismus, no JVD, no step offs CHEST RRR, no m/g/r CTAB, no w/r/r. Symmetrical chest rise. No intercostal subcostal retraction Atraumatic, nontender, no crepitus, symmetrical expansion. ABDOMEN Soft, flat, nontender. No guarding/rebound tenderness/masses. Bowel sounds presents EXTREMITIES Nontender, no cyanosis, no edema No edema/cyanosis.? Left foot: dressing dry, intact and in place. No discharge. SKIN Warm and dry, no jaundice/rashes. NEUROMUSCULAR No lumbar or midline, no CVA, no paraspinal muscle spasm or tenderness. Moves all 4 extremities well, with full ROM and good CSM. VILCHIS x4, CN II-XII grossly intact. No focal neurologic deficits. PSYCHIATRY Normal mood and affect, cooperative, no SI or HI or hallucinations. Objective Labs 07/25/24 05:35 07/25/24 05:35 Labs: Laboratory Results - last 24 hr 07/24/24 07/24/24 07/25/24 10:35 12:47 05:35 WBC 22.2 H 14.6 H D RBC 3.34 L 2.71 L Hgb 8.9 L 7.3 L Hct 26.7 L 22.2 L MCV 80 82 MCH 26.6 26.9 MCHC 33.3 32.9 RDW Std Deviation 34.8 L 36.3 L Plt Count 509 H 388 D Neut % (Auto) 86 H 82 H Lymph % (Auto) 7 L 10 [place] % (Auto) 6 5 Eos % (Auto) 0 1 Baso % (Auto) 0 0 Neut # (Auto) 19.0 H 12.0 H Lymph # (Auto) 1.5 1.5 [place] # (Auto) 1.4 H 0.8 Eos # (Auto) 0.1 0.2 Baso # (Auto) 0.1 0.1 Immature Gran # (Auto) 0.19 H 0.10 H Absolute Nucleated RBC 0.00 0.00 Immature Gran % 1 H 1 H Nucleated RBC % 0 0 ESR 25 PT 11.5 11.4 INR 1.1 1.0 APTT 29.4 33.0 Sodium 131 L 133 L Potassium 3.7 4.2 D Chloride 94 L 98 Carbon Dioxide 27.9 28.0 Anion Gap 9 7 BUN 13 17 Creatinine 1.0 1.2 Estim Creat Clear Calc 59.7 L 49.9 L eGFR > 60 53 L BUN/Creatinine Ratio 13 14 Glucose [address] Glu mg/dL 266 H Hemoglobin A1c 10.9 H Calculated Osmolality 261 L 269 L Lactic Acid 1.1 Calcium 9.1 8.5 Corrected Calcium 9.1 9.1 Phosphorus 4.3 Magnesium 1.6 Total Bilirubin 0.3 0.2 L AST 17 16 ALT 23 17 Alkaline Phosphatase 81 62 D C-Reactive Prot, Quant 16.0 H Total Protein 7.2 5.9 Albumin 4.2 3.3 L D Globulin 3.0 2.6 Albumin/Globulin Ratio 1.4 1.3 Procalcitonin 0.14 Ur Collection Type Clean Catch Urine Color Lt-Yellow Urine Clarity Clear Urine pH 6.5 Ur Specific [place] 1.013 Urine Protein 2+ A Urine Glucose (UA) 3+ A Urine Ketones Negative Urine Blood 1+ A Urine Nitrite Negative Urine Bilirubin Negative Urine Urobilinogen (Auto) Negative Ur Leukocyte Esterase Negative Urine RBC 5 H Urine WBC 9 H Ur Squamous Epith Cells 11 H Urine Bacteria None Ur Culture Indicated? Not Indicated Quality Measures Quality Measures none Assessment & Plan Assessment Current Active Medications: Generic Name Dose Route Start Last Admin Trade Name Freq PRN Reason Stop Dose Admin Acetaminophen 650 mg 07/24/24 15:15 Acetaminophen 325 Mg Tablet PO 08/23/24 15:14 Q6H PRN PAIN SCALE 1-3 (mild Acetaminophen 650 mg 07/24/24 15:15 Acetaminophen 325 Mg Tablet PO 08/23/24 15:14 Q6H PRN Fever >100 Hydrocodone Bitart/Acetaminophen 1 tab 07/24/24 15:15 07/25/24 05:50 Hydrocodone/Apap 10/325 Tab PO 07/29/24 15:14 1 tab Q4HR PRN Administration PAIN SCALE 7-10 (Severe Gabapentin 800 Mg 0 ea 07/25/24 08:00 Tablet PO 08/24/24 07:59 TID [facility] Tresiba(Insulin 0 ea 07/25/24 21:00 Degludec) 200 Units/ SC 08/24/24 20:59 Ml Pen HS JASVIR Dextrose 25 ml 07/24/24 16:20 Dextrose 50%-Water Inj 50 Ml Syringe IV 08/23/24 16:19 Q15MIN PRN BG 50-70 responsive npo pt Dextrose 50 ml 07/24/24 16:20 Dextrose 50%-Water Inj 50 Ml Syringe IV 08/23/24 16:19 Q15MIN PRN BG <50 OR BG <70 & pt unresponsive Glucagon 1 mg 07/24/24 16:20 Glucagon Inj 1 Mg Vial IM Q15MIN PRN BG <70, and no IV access Heparin Sodium (Porcine) 5,000 unit 07/24/24 22:00 07/24/24 22:44 Heparin Sod Inj 5000 Unit/Ml Vial SC 08/07/24 21:59 5,000 unit Q8HR JASVIR Administration Piperacillin/Tazobactam/Dextrose 3.375 gm in 50 mls @ 12.5 mls/hr 07/24/24 22:00 07/25/24 06:10 Zosyn IV 07/31/24 21:59 12.5 mls/hr Q8HR JASVIR Administration Vancomycin HCl 250 mls @ 120 mls/hr 07/25/24 10:00 Vancomycin/Water 1250 Mg Ivpb IV 08/01/24 09:59 Q24H [facility] Insulin Human Lispro 10 unit 07/24/24 22:00 07/25/24 06:09 Insulin Lispro (Admelog) 1 Unit/0.01 Ml Unit SC 08/23/24 21:59 Not Given TID [facility] Insulin Human Lispro 0 unit 07/25/24 06:15 07/25/24 06:23 Insulin Lispro (Admelog) 1 Unit/0.01 Ml Unit SC 08/24/24 06:14 Not Given Q6HR [facility] Protocol Loratadine 10 mg 07/25/24 09:00 Loratadine 10 Mg Tablet PO 08/24/24 08:59 QDAY JASVIR Montelukast Sodium 10 mg 07/24/24 21:00 07/24/24 21:02 Montelukast Sodium 10 Mg Tablet PO 08/23/24 20:59 10 mg HS JASVIR Administration Ondansetron HCl 4 mg 07/24/24 15:15 Ondansetron Inj 2 Mg/Ml Inj 2 Ml IV 08/23/24 15:14 Q6H PRN NAUSEA OR VOMITING Protocol Oxycodone/Acetaminophen 1 tab 07/24/24 15:15 Oxycodone/Apap 5/325 Tablet PO 07/29/24 15:14 Q6H PRN PAIN SCALE 4-6 (Moderate Pantoprazole Sodium 40 mg 07/24/24 15:15 07/24/24 17:05 Pantoprazole Inj 40 Mg Vial IVP 08/23/24 15:14 40 mg QDAY JASVIR Administration Pharmacy Consult 1 each 07/24/24 16:15 Vancomycin Pharmacy To Dose 1 Each Each IV 08/23/24 16:14 QDAY PRN CONSULT Plan In summary: 58-year-old female with PMHx of T2 IDDM admitted for right foot abscess. Patient is n.p.o. for the OR with general surgery tomorrow. Appreciate recommendations from general surgery. Left foot abscess Left foot cellulitis S/p I&D with general surgery Sepsis (resolved) Admitted for left foot abscess and cellulitis after stepping on a nail. Septic on admission with 4/4 SIRS: Fever, tachycardia, tachypnea, leukocytosis. Adequately fluid resuscitated. Sepsis resolved. CT showed extensive soft tissue infection with gas-forming organism, early osteomyelitis of proximal phalanx of second digit. Completed uncomplicated I&D with general surgery on 07/25/2024. Continued on VANCOMYCIN and ZOSYN. Cultures pending. ? Continue ZOSYN 3.375 mg Q6H (07/24 to present) ? Continue VANCOMYCIN daily (07/24 to present) ? Wound care ? Pending cultures: Blood and abscess manage T2 IDDM On admission, A1c 10.9, GLUCOSE 138. Home meds include RYBELSUS, TRESIBA 15 HS, lispro 10 TID. Patient has allergy to LANTUS and METFORMIN. ? Continue TRESIBA 15 units HS (patient's home med) ? Continue LISPRO 10 units TID ? Continue sliding scale ? Accu-Cheks Severe peripheral neuropathy Chronic, absent sensation of distal digits in both bilateral UE/LE. ? Continue home GABAPENTIN 800 mg TID HTN (resolved) Denies history of hypertension. Currently not taking any ANTIHYPERTENSIVE medication. Admission BP 148/75, resolved. Currently normotensive. Allergic rhinitis ? Continue LORATADINE 10 mg daily ? Continue MONTELUKAST 10 mg HS Health maintenance Diet:CHO consistent GI prophylaxis: PROTONIX DVT prophylaxis: HEPARIN Antibiotics: ZOSYN, VANCOMYCIN CODE STATUS: DNR Disposition: Pending general surgery recommendations. Patient case was discussed with attending, Dr. Cale REARDON, and senior residents Dr. Chambers and Dr. Alex. Dianna Mosley, DO PGYI Senior Resident Attestation: The patient is s/p I&D of left foot. Will continue with vancomycin and Zosyn. Will continue to monitor her vitals and labs. I discussed with and supervised the international exchange coordinator physician involved in the care of this patient. I personally saw and examined the patient and discussed the assessment and plan with the entire medicine team, including my attending. I agree with the assessment and plan as documented above. Anson Alex MD PGY2 Internal Medicine Attending Provider Attestation/Addendum Patient is status post incision and drainage of left foot abscess by Dr. Goss. Continue current antibiotic treatment. Controlled diabetes.
[2024-07-25] MEDS: lorataDINE 10 MG TABLET PO (09:44)
[2024-07-25] MEDS: PANTOPRAZOLE INJ 40 MG VIAL IVP (09:44)
[2024-07-25] MEDS: VANCOMYCIN/WATER 1250 MG IVPB 250 ML 120 MG IV (09:45)
--- NOTE | 2024-07-25 12:32 | SUR.PHASEI ---
pt arrived to PACU via gurney drowsy but arouses to verbal commands, breathing unlabored, dressing to left foot clean, dry, and intact, report from Adeel JIMENEZ and Dr Whitney
--- NOTE | 2024-07-25 12:58 | PD.SUROPNT ---
Date of Procedure 07/25/24 Pre Op Diagnosis Cellulitis and abscess of left foot Post Op Diagnosis Cellulitis and abscess of left foot Procedure Incision below the fascial level multiple bursal space and drainage of abscess Findings Edema and significant cellulitis of left foot. Small open wound with fluctuance at the plantar aspect Procedure Description Patient brought intraoperative room in supine position. After administration of general tracheal anesthesia, patient's left foot prepped and draped in standard surgical manner. She was noted to have significant cellulitis and edema of left foot with an open wound and area of fluctuance at the mid and plantar aspect. The scabs around opening was excised with a blade. Then any fascia was opened, there were some purulent drainage, cultures were obtained. The area below the fascia was inspected, and there is no evidence of subfascial abscess or infection. A counterincision was made on the dorsal aspect because of significant amount of edema and erythema to make sure there is no extension of abscess. She was found to have some edema but no evidence of abscess. Wound was washed and irrigated copiously thoroughly with Betadine mixed with peroxide and saline and further washed with warm saline. Hemostasis was adequate and satisfactory. The wound was packed with wet-to-dry dressings. Patient tolerated procedure well. She was extubated, breathing spontaneously and without difficulty and was transferred to postanesthesia care in stable condition. Anesthesia GETA Pathology / specimen Other (Cultures from the abscess cavity) Estimated Blood Loss 2 Condition Stable Disposition PACU Surgeon Garrett Goss MD Surgical Staff Operation Date: 07/25/24 12:30 Case Staff Anesthesiologist: Tera Whitney
--- NOTE | 2024-07-25 13:04 | SUR.PHASEI ---
attempted to call report, no answer
--- NOTE | 2024-07-25 13:17 | SUR.PHASEI ---
attempted to call report, no answer, advised community health director-will check phone
--- NOTE | 2024-07-25 13:24 | SUR.PHASEI ---
notified Mustapha charge nurse that attempts to call report were unsuccessful. Mustapha will return my call.
--- NOTE | 2024-07-25 13:53 | SUR.PHASEI ---
pt drowsy but arouses to verbal commands, breathing unlabored, dressing to left foot clean, dry, and intact, report called to Beverly JIMENEZ, pt transferred to room at this time.
[2024-07-25] MEDS: GABAPENTIN 800 MG TABLET PO ×2 (14:08→21:32)
[2024-07-25] MEDS: ZINC SULFATE 220 MG CAPSULE PO (15:25)
--- NOTE | 2024-07-25 15:49 | PC.DIETICIAN ---
1. RD added Flavored Wang 1 pkt BID daily after lunch and dinner, mix with 6-8 oz water for targeted nutrition and wound healing, RN to administer as medication 2. Recommend to add Vitamin C 500mg BID daily, zinc 220mg , Multivitamin-Mineral daily to ensure adequate nutrient intake and promote wound healing. Continue with current diet, plan is ongoing. RD to remain available as requested or needed
[2024-07-25] MEDS: ASCORBIC ACID 250 MG TABLET 500 MG PO (21:20)
[2024-07-25] MEDS: MONTELUKAST SODIUM 10 MG TABLET PO (21:20)
[2024-07-25] MEDS: INSULIN LISPRO (AdmeLOG) 1 UNIT/0.01 ML UNIT SC (21:21)
[2024-07-25] MEDS: HEPARIN SOD INJ 5000 UNIT/ML VIAL SC (21:22)
[2024-07-25] MEDS: TRESIBA 200 UNIT/ML SC (21:24)
[2024-07-26] VITALS: BP 93/53; PULSE 71; RESP 18; TEMP 36.5; O2SAT 94
[2024-07-26 04:00] VITALS: BP 132/70; PULSE 81; RESP 18; TEMP 36.5; O2SAT 96
[2024-07-26] MEDS: HEPARIN SOD INJ 5000 UNIT/ML VIAL SC ×2 (06:08→13:28)
[2024-07-26] MEDS: PIPER/TAZO 3.375 GM 3.375 GM/50 ML BAG IV ×3 (06:08→21:00)
[2024-07-26] MEDS: GABAPENTIN 800 MG TABLET PO ×3 (06:08→21:08)
[2024-07-26 06:19] LABS: Basophils # (Auto) 0.1 Thou/mm3 (0.0-0.2); Basophils % (Auto) 0 % (0-2.5); Eosinophils # (Auto) 0.2 Thou/mm3 (0.0-0.5); Eosinophils % (Auto) 1 % (0-10); Hematocrit 24.8 % (36.0-46.0); Immature Granulocytes % (Auto) 1 % (0-0); Immature Granulocytes Auto 0.07 Thou/mm3 (0.00-0.00); Lymphocytes # (Auto) 1.7 Thou/mm3 (1.0-4.8); Lymphocytes % (Auto) 13 % (10-50); Mean Corpuscular HGB Conc 32.3 g/dl (31.0-37.0); Mean Corpuscular Hemoglobin 26.5 pg (25.0-35.0); Mean Corpuscular Volume 82 fL (80-100); Monocytes # (Auto) 0.8 Thou/mm3 (0.0-0.8); Monocytes % (Auto) 6 % (0-12); Neutrophils # (Auto) 10.6 Thou/mm3 (1.8-7.7); Neutrophils % (Auto) 80 % (37-80); Nucleated Red Blood Cell % 0 /100 WBC (0); Platelet Count 554 Thou/mm3 (140-440); RDW Standard Deviation 37.1 fL (36.4-46.3); Red Blood Count 3.02 Miln/mm3 (4.00-5.20); White Blood Count 13.3 Thou/mm3 (3.6-11.0)
[2024-07-26 06:35] LABS: Alanine Aminotransferase 15 U/L (10-49); Albumin, Serum 3.7 gm/dL (3.5-5.0); Albumin/Globulin Ratio 1.4 (1.2-2.2); Alkaline Phosphatase 65 U/L (46-116); Anion Gap 8 (7-16); Aspartate Amino Transferase 12 U/L (0-34); BUN/Creatinine Ratio 14 Ratio (12-20); Bilirubin,Total 0.3 mg/dL (0.3-1.2); Blood Urea Nitrogen 17 mg/dL (9-23); Calcium 8.9 mg/dL (8.3-10.6); Calcium (Corrected) 9.1 mg/dL (8.5-10.1); Carbon Dioxide 28.4 mMol/L (20.0-31.0); Chloride 98 mMol/L (98-107); Creatinine (Component) 1.2 mg/dL (0.6-1.3); Estimated Creatinine Clearance 49.9 mL/min (>60); Globulin 2.6 gm/dL (2.3-3.5); Glucose 134 mg/dL (74-106); Magnesium 1.9 mg/dL (1.6-2.6); Osmolality,Calculated 271 (275-295); Phosphorous 4.3 mg/dL (2.4-5.1); Potassium 4.1 mMol/L (3.4-5.1); Sodium 134 mMol/L (136-145); Total Protein 6.3 gm/dL (5.7-8.2); eGFR 53 See Note
[2024-07-26 08:00] VITALS: BP 105/67; PULSE 83; RESP 18; TEMP 36.4; O2SAT 95
--- NOTE | 2024-07-26 09:19 | ESPR_ITS ---
Documentation for date of: 07/26/24 Subjective Subjective Interval history: No overnight events. Pain well-controlled. Passing gas and bowel movements. Denies fever, chills, headaches, chest pain, sob, cough, GI or urinary symptoms. Exam Vital Signs Temp Pulse Resp BP Pulse Ox O2 Del Method O2 Flow Rate 97.7 F 81 18 132/70 H 96 Room Air 2 07/26/24 04:00 07/26/24 04:00 07/26/24 04:00 07/26/24 04:00 07/26/24 04:00 07/26/24 04:00 07/25/24 13:45 Narrative Exam GENERAL * Normal-appearing middle-aged female, no apparent distress. HEENT * NCAT.?KENDALL. Oral mucosa is moist. Patent Nares NECK * Supple, nontender, no thyromegaly, no meningismus, no JVD, no step offs CHEST * RRR, no m/g/r * CTAB, no w/r/r. Symmetrical chest rise. No intercostal subcostal retraction * Atraumatic, nontender, no crepitus, symmetrical expansion. ABDOMEN * Soft, flat, nontender. No guarding/rebound tenderness/masses. * Bowel sounds presents EXTREMITIES * Nontender, no cyanosis, no edema * No edema/cyanosis.? * Left foot: dressing dry, intact and in place. No discharge. SKIN * Warm and dry, no jaundice/rashes. NEUROMUSCULAR * No lumbar or midline, no CVA, no paraspinal muscle spasm or tenderness. * Moves all 4 extremities well, with full ROM and good CSM. * VILCHIS x4, CN II-XII grossly intact. * No focal neurologic deficits. PSYCHIATRY * Normal mood and affect, cooperative, no SI or HI or hallucinations. Objective Labs 07/26/24 05:44 07/26/24 05:44 Labs: Laboratory Results - last 24 hr 07/26/24 05:44 WBC 13.3 H RBC 3.02 L Hgb 8.0 L Hct 24.8 L MCV 82 MCH 26.5 MCHC 32.3 RDW Std Deviation 37.1 Plt Count 554 H D Neut % (Auto) 80 Lymph % (Auto) 13 [place] % (Auto) 6 Eos % (Auto) 1 Baso % (Auto) 0 Neut # (Auto) 10.6 H Lymph # (Auto) 1.7 [place] # (Auto) 0.8 Eos # (Auto) 0.2 Baso # (Auto) 0.1 Immature Gran # (Auto) 0.07 H Absolute Nucleated RBC 0.00 Immature Gran % 1 H Nucleated RBC % 0 Sodium 134 L Potassium 4.1 Chloride 98 Carbon Dioxide 28.4 Anion Gap 8 BUN 17 Creatinine 1.2 Estim Creat Clear Calc 49.9 L eGFR 53 L BUN/Creatinine Ratio 14 Glucose 134 H Calculated Osmolality 271 L Calcium 8.9 Corrected Calcium 9.1 Phosphorus 4.3 Magnesium 1.9 Total Bilirubin 0.3 AST 12 ALT 15 Alkaline Phosphatase 65 Total Protein 6.3 Albumin 3.7 Globulin 2.6 Albumin/Globulin Ratio 1.4 Quality Measures Quality Measures none Assessment & Plan Assessment Current Active Medications: Generic Name Dose Route Start Last Admin Trade Name Freq PRN Reason Stop Dose Admin Acetaminophen 650 mg 07/24/24 15:15 Acetaminophen 325 Mg Tablet PO 08/23/24 15:14 Q6H PRN PAIN SCALE 1-3 (mild Acetaminophen 650 mg 07/24/24 15:15 Acetaminophen 325 Mg Tablet PO 08/23/24 15:14 Q6H PRN Fever >100 Hydrocodone Bitart/Acetaminophen 1 tab 07/24/24 15:15 07/25/24 21:21 Hydrocodone/Apap 10/325 Tab PO 07/29/24 15:14 1 tab Q4HR PRN Administration PAIN SCALE 7-10 (Severe Ascorbic Acid 500 mg 07/25/24 21:00 07/25/24 21:20 Ascorbic Acid 250 Mg Tablet PO 08/24/24 20:59 500 mg BID JASVIR Administration Gabapentin 800 Mg 0 ea 07/25/24 08:00 07/26/24 06:08 Tablet PO 08/24/24 07:59 1 tablet TID JASVIR Administration Tresiba(Insulin 0 ea 07/25/24 21:00 07/25/24 21:24 Degludec) 200 Units/ SC 08/24/24 20:59 15 unit Ml Pen HS JASVIR Administration Dextrose 25 ml 07/24/24 16:20 Dextrose 50%-Water Inj 50 Ml Syringe IV 08/23/24 16:19 Q15MIN PRN BG 50-70 responsive npo pt Dextrose 50 ml 07/24/24 16:20 Dextrose 50%-Water Inj 50 Ml Syringe IV 08/23/24 16:19 Q15MIN PRN BG <50 OR BG <70 & pt unresponsive Glucagon 1 mg 07/24/24 16:20 Glucagon Inj 1 Mg Vial IM Q15MIN PRN BG <70, and no IV access Heparin Sodium (Porcine) 5,000 unit 07/24/24 22:00 07/26/24 06:08 Heparin Sod Inj 5000 Unit/Ml Vial SC 08/07/24 21:59 5,000 unit Q8HR JASVIR Administration Piperacillin/Tazobactam/Dextrose 3.375 gm in 50 mls @ 12.5 mls/hr 07/24/24 22:00 07/26/24 06:08 Zosyn IV 07/31/24 21:59 12.5 mls/hr Q8HR JASVIR Administration Vancomycin HCl 250 mls @ 120 mls/hr 07/25/24 10:00 07/25/24 09:45 Vancomycin/Water 1250 Mg Ivpb IV 08/01/24 09:59 120 mls/hr Q24H JASVIR Administration Insulin Human Lispro 10 unit 07/24/24 22:00 07/26/24 05:48 Insulin Lispro (Admelog) 1 Unit/0.01 Ml Unit SC 08/23/24 21:59 Not Given TID JASVIR Insulin Human Lispro 0 unit 07/25/24 21:00 07/26/24 07:37 Insulin Lispro (Admelog) 1 Unit/0.01 Ml Unit SC 08/24/24 20:59 Not Given ACHS [facility] Protocol Loratadine 10 mg 07/25/24 09:00 07/25/24 09:44 Loratadine 10 Mg Tablet PO 08/24/24 08:59 10 mg QDAY JASVIR Administration Montelukast Sodium 10 mg 07/24/24 21:00 07/25/24 21:20 Montelukast Sodium 10 Mg Tablet PO 08/23/24 20:59 10 mg HS JASVIR Administration Ondansetron HCl 4 mg 07/24/24 15:15 Ondansetron Inj 2 Mg/Ml Inj 2 Ml IV 08/23/24 15:14 Q6H PRN NAUSEA OR VOMITING Protocol Oxycodone/Acetaminophen 1 tab 07/24/24 15:15 Oxycodone/Apap 5/325 Tablet PO 07/29/24 15:14 Q6H PRN PAIN SCALE 4-6 (Moderate Pantoprazole Sodium 40 mg 07/24/24 15:15 07/25/24 09:44 Pantoprazole Inj 40 Mg Vial IVP 08/23/24 15:14 40 mg QDAY JASVIR Administration Pharmacy Consult 1 each 07/24/24 16:15 Vancomycin Pharmacy To Dose 1 Each Each IV 08/23/24 16:14 QDAY PRN CONSULT Zinc Sulfate 220 mg 07/25/24 14:42 07/25/24 15:25 Zinc Sulfate 220 Mg Capsule PO 08/24/24 14:41 220 mg QDAY JASVIR Administration Plan In summary: 58-year-old female with PMHx of T2 IDDM admitted for right foot abscess. Completed I&D with general surgery. General surgery recommended another day inpatient until cultures finalized. Will likely discharge 07/27. Appreciate recommendations from general surgery. Left foot abscess Left foot cellulitis S/p I&D with general surgery Sepsis (resolved) Admitted for left foot abscess and cellulitis after stepping on a nail. Septic on admission with 4/4 SIRS: Fever, tachycardia, tachypnea, leukocytosis. Adequately fluid resuscitated. Sepsis resolved. CT showed extensive soft tissue infection with gas-forming organism, early osteomyelitis of proximal phalanx of second digit. Completed uncomplicated I&D with general surgery on 07/25/2024. Continued on VANCOMYCIN and ZOSYN. Will need PICC line for osteomyelitis treatment once blood culture is negative. ? Continue ZOSYN 3.375 mg Q6H (07/24 to present) ? Continue VANCOMYCIN daily (07/24 to present) ? Wound care ? Pending cultures: Blood and abscess manage ? PICC line once 48 blood culture negative T2 IDDM On admission, A1c 10.9, GLUCOSE controlled. Home meds include RYBELSUS, TRESIBA 15 HS, lispro 10 TID. Patient has allergy to LANTUS and METFORMIN. ? Continue TRESIBA 15 units HS (patient's home med) ? Continue LISPRO 10 units TID ? Continue sliding scale ? Accu-Cheks Severe peripheral neuropathy Chronic, absent sensation of distal digits in both bilateral UE/LE. ? Continue home GABAPENTIN 800 mg TID HTN (resolved) Denies history of hypertension. Currently not taking any ANTIHYPERTENSIVE medication. Admission BP 148/75, resolved. Currently normotensive. Allergic rhinitis ? Continue LORATADINE 10 mg daily ? Continue MONTELUKAST 10 mg HS Health maintenance Diet:CHO consistent GI prophylaxis: PROTONIX DVT prophylaxis: HEPARIN Antibiotics: ZOSYN, VANCOMYCIN CODE STATUS: DNR Disposition: Pending general surgery recommendations. Senior Resident Attestation: The patient reported her pain being well controlled. Dr. Goss recommended continuing with IV vanc and zosyn and pain management. We will continue with current insulin regimen and home medications for her chronic conditions. I discussed with and supervised the senior internal auditor physician involved in the care of this patient. I personally saw and examined the patient and discussed the assessment and plan with the entire medicine team, including my attending. I agree with the assessment and plan as documented above. Anson Alex MD PGY2 Internal Medicine Attending Provider Attestation/Addendum Patient is status post incision and drainage of left foot abscess by Dr. Goss. Continue current antibiotic treatment. Monitor blood glucose.. Check culture results Possible osteomyelitis spreading further diagnostic results.
[2024-07-26] MEDS: PANTOPRAZOLE INJ 40 MG VIAL IVP (09:55)
[2024-07-26] MEDS: VANCOMYCIN/WATER 1250 MG IVPB 250 ML 120 MG IV (09:55)
[2024-07-26] MEDS: ZINC SULFATE 220 MG CAPSULE PO (09:55)
[2024-07-26] MEDS: lorataDINE 10 MG TABLET PO (09:56)
[2024-07-26] MEDS: ASCORBIC ACID 250 MG TABLET 500 MG PO ×2 (09:58→21:00)
[2024-07-26 12:00] VITALS: BP 128/68; PULSE 79; RESP 18; TEMP 36.3; O2SAT 94
[2024-07-26] MEDS: INSULIN LISPRO (AdmeLOG) 1 UNIT/0.01 ML UNIT 10 UNIT SC (13:27)
--- NOTE | 2024-07-26 13:30 | PD.SURPROG ---
Documentation for date of: 07/26/24 Subjective Subjective Narrative: Patient is seen and examined. She is feeling much better. Exam Vital Signs Temp Pulse Resp BP Pulse Ox O2 Del Method O2 Flow Rate 97.6 F 83 18 105/67 95 Room Air 2 07/26/24 08:00 07/26/24 08:00 07/26/24 08:00 07/26/24 08:00 07/26/24 08:00 07/26/24 08:00 07/25/24 13:45 Constitutional Constitutional: no acute distress Routine Extremities Exam Comments: Improvement of cellulitis and edema. No bleeding, has minimal purulent drainage Assessment & Plan Assessment Additional comments: Postop day #1 status post I&D of left foot abscess Plan Continue IV antibiotics. Wound care as directed. Procedures Procedures Incision below the fascial level multiple bursal space and drainage of abscess
[2024-07-26 16:00] VITALS: BP 115/65; PULSE 74; RESP 18; TEMP 36.8; O2SAT 96
[2024-07-26] MEDS: INSULIN LISPRO (AdmeLOG) 1 UNIT/0.01 ML UNIT SC ×2 (17:37→21:00)
[2024-07-26 20:00] VITALS: BP 117/67; PULSE 78; RESP 18; TEMP 36.6; O2SAT 95
[2024-07-26] MEDS: MONTELUKAST SODIUM 10 MG TABLET PO (21:00)
[2024-07-26] MEDS: TRESIBA 200 UNIT/ML SC (21:08)
[2024-07-27] VITALS (15 sets, daily range): BP systolic 115–169; BP diastolic 59–87; PULSE 69–86; RESP 15–22; TEMP 36.1–36.7; O2SAT 93–99
[2024-07-27] MEDS: PIPER/TAZO 3.375 GM 3.375 GM/50 ML BAG IV (05:23)
[2024-07-27] MEDS: GABAPENTIN 800 MG TABLET PO ×2 (05:23→14:02)
[2024-07-27] MEDS: INSULIN LISPRO (AdmeLOG) 1 UNIT/0.01 ML UNIT 10 UNIT SC ×2 (05:31→13:50)
[2024-07-27 06:10] LABS: Basophils % (Auto) 0 % (0-2.5); Eosinophils # (Auto) 0.2 Thou/mm3 (0.0-0.5); Eosinophils % (Auto) 2 % (0-10); Hematocrit 23.3 % (36.0-46.0); Immature Granulocytes % (Auto) 1 % (0-0); Immature Granulocytes Auto 0.07 Thou/mm3 (0.00-0.00); Lymphocytes # (Auto) 1.7 Thou/mm3 (1.0-4.8); Lymphocytes % (Auto) 14 % (10-50); Mean Corpuscular HGB Conc 33.5 g/dl (31.0-37.0); Mean Corpuscular Hemoglobin 27.3 pg (25.0-35.0); Mean Corpuscular Volume 82 fL (80-100); Monocytes # (Auto) 0.6 Thou/mm3 (0.0-0.8); Monocytes % (Auto) 5 % (0-12); Neutrophils # (Auto) 9.1 Thou/mm3 (1.8-7.7); Neutrophils % (Auto) 78 % (37-80); Nucleated Red Blood Cell % 0 /100 WBC (0); Platelet Count 552 Thou/mm3 (140-440); RDW Standard Deviation 36.6 fL (36.4-46.3); Red Blood Count 2.86 Miln/mm3 (4.00-5.20); White Blood Count 11.7 Thou/mm3 (3.6-11.0)
[2024-07-27 06:19] LABS: Partial Thromboplastin Time 30.2 Seconds (22.0-36.0)
[2024-07-27 06:22] LABS: Hemoglobin 7.8 g/dL (12.0-16.0)
[2024-07-27 06:28] LABS: Alanine Aminotransferase 13 U/L (10-49); Albumin, Serum 3.6 gm/dL (3.5-5.0); Albumin/Globulin Ratio 1.3 (1.2-2.2); Alkaline Phosphatase 70 U/L (46-116); Anion Gap 7 (7-16); Aspartate Amino Transferase 10 U/L (0-34); BUN/Creatinine Ratio 12 Ratio (12-20); Bilirubin,Total 0.2 mg/dL (0.3-1.2); Blood Urea Nitrogen 16 mg/dL (9-23); Calcium 8.8 mg/dL (8.3-10.6); Calcium (Corrected) 9.1 mg/dL (8.5-10.1); Carbon Dioxide 28.7 mMol/L (20.0-31.0); Chloride 99 mMol/L (98-107); Creatinine (Component) 1.3 mg/dL (0.6-1.3); Globulin 2.7 gm/dL (2.3-3.5); Glucose 202 mg/dL (74-106); Magnesium 1.9 mg/dL (1.6-2.6); Osmolality,Calculated 277 (275-295); Phosphorous 3.3 mg/dL (2.4-5.1); Potassium 4.4 mMol/L (3.4-5.1); Sodium 135 mMol/L (136-145); Total Protein 6.3 gm/dL (5.7-8.2); eGFR 48 See Note
[2024-07-27] MEDS: HYDROcodone/APAP 10/325 TAB PO ×2 (07:43→13:41)
--- NOTE | 2024-07-27 08:13 | PD.RESPRO ---
Documentation for date of: 07/27/24 Subjective Subjective Interval history: No acute overnight events. Tolerating oral intake without nausea or vomiting. Pain seems controlled. No new symptoms or worsening of symptoms. Denies fever, chills, headaches, chest pain, sob, cough, GI or urinary symptoms. Exam Vital Signs Temp Pulse Resp BP Pulse Ox O2 Del Method O2 Flow Rate 97.0 F 79 18 115/59 L 98 Room Air 2 07/27/24 07:46 07/27/24 07:46 07/27/24 07:46 07/27/24 07:46 07/27/24 07:46 07/27/24 07:46 07/26/24 12:00 Narrative Exam GENERAL Normal-appearing middle-aged female, no apparent distress. HEENT NCAT.?KENDALL. Oral mucosa is moist. Patent Nares NECK Supple, nontender, no thyromegaly, no meningismus, no JVD, no step offs CHEST RRR, no m/g/r CTAB, no w/r/r. Symmetrical chest rise. No intercostal subcostal retraction Atraumatic, nontender, no crepitus, symmetrical expansion. ABDOMEN Soft, flat, nontender. No guarding/rebound tenderness/masses. Bowel sounds presents EXTREMITIES Nontender, no cyanosis, no edema No edema/cyanosis.? Left foot: dressing dry, intact and in place. No discharge. SKIN Warm and dry, no jaundice/rashes. NEUROMUSCULAR No lumbar or midline, no CVA, no paraspinal muscle spasm or tenderness. Moves all 4 extremities well, with full ROM and good CSM. VILCHIS x4, CN II-XII grossly intact. No focal neurologic deficits. PSYCHIATRY Normal mood and affect, cooperative, no SI or HI or hallucinations. Objective Labs 07/27/24 05:16 07/27/24 05:16 Labs: Laboratory Results - last 24 hr 07/27/24 05:16 WBC 11.7 H RBC 2.86 L Hgb 7.8 L Hct 23.3 L MCV 82 MCH 27.3 MCHC 33.5 RDW Std Deviation 36.6 Plt Count 552 H Neut % (Auto) 78 Lymph % (Auto) 14 [place] % (Auto) 5 Eos % (Auto) 2 Baso % (Auto) 0 Neut # (Auto) 9.1 H Lymph # (Auto) 1.7 [place] # (Auto) 0.6 Eos # (Auto) 0.2 Baso # (Auto) 0.0 Immature Gran # (Auto) 0.07 H Absolute Nucleated RBC 0.00 Immature Gran % 1 H Nucleated RBC % 0 PT 11.0 INR 1.0 APTT 30.2 Sodium 135 L Potassium 4.4 Chloride 99 Carbon Dioxide 28.7 Anion Gap 7 BUN 16 Creatinine 1.3 Estim Creat Clear Calc 46.0 L eGFR 48 L BUN/Creatinine Ratio 12 Glucose 202 H D Calculated Osmolality 277 Calcium 8.8 Corrected Calcium 9.1 Phosphorus 3.3 Magnesium 1.9 Total Bilirubin 0.2 L AST 10 ALT 13 Alkaline Phosphatase 70 Total Protein 6.3 Albumin 3.6 Globulin 2.7 Albumin/Globulin Ratio 1.3 Quality Measures Quality Measures none Assessment & Plan Assessment Current Active Medications: Generic Name Dose Route Start Last Admin Trade Name Freq PRN Reason Stop Dose Admin Acetaminophen 650 mg 07/24/24 15:15 Acetaminophen 325 Mg Tablet PO 08/23/24 15:14 Q6H PRN PAIN SCALE 1-3 (mild Acetaminophen 650 mg 07/24/24 15:15 Acetaminophen 325 Mg Tablet PO 08/23/24 15:14 Q6H PRN Fever >100 Hydrocodone Bitart/Acetaminophen 1 tab 07/24/24 15:15 07/27/24 07:43 Hydrocodone/Apap 10/325 Tab PO 07/29/24 15:14 1 tab Q4HR PRN Administration PAIN SCALE 7-10 (Severe Ascorbic Acid 500 mg 07/25/24 21:00 07/26/24 21:00 Ascorbic Acid 250 Mg Tablet PO 08/24/24 20:59 500 mg BID JASVIR Administration Gabapentin 800 Mg 0 ea 07/25/24 08:00 07/27/24 05:23 Tablet PO 08/24/24 07:59 1 tablet TID JASVIR Administration Tresiba(Insulin 0 ea 07/25/24 21:00 07/26/24 21:08 Degludec) 200 Units/ SC 08/24/24 20:59 15 unit Ml Pen HS JASVIR Administration Dextrose 25 ml 07/24/24 16:20 Dextrose 50%-Water Inj 50 Ml Syringe IV 08/23/24 16:19 Q15MIN PRN BG 50-70 responsive npo pt Dextrose 50 ml 07/24/24 16:20 Dextrose 50%-Water Inj 50 Ml Syringe IV 08/23/24 16:19 Q15MIN PRN BG <50 OR BG <70 & pt unresponsive Glucagon 1 mg 07/24/24 16:20 Glucagon Inj 1 Mg Vial IM Q15MIN PRN BG <70, and no IV access Heparin Sodium (Porcine) 5,000 unit 07/24/24 22:00 07/26/24 13:28 Heparin Sod Inj 5000 Unit/Ml Vial SC 08/07/24 21:59 5,000 unit Q8HR JASVIR Administration Piperacillin/Tazobactam/Dextrose 3.375 gm in 50 mls @ 12.5 mls/hr 07/24/24 22:00 07/27/24 05:23 Zosyn IV 07/31/24 21:59 12.5 mls/hr Q8HR JASVIR Administration Vancomycin HCl 250 mls @ 120 mls/hr 07/25/24 10:00 07/26/24 10:24 Vancomycin/Water 1250 Mg Ivpb IV 08/01/24 09:59 120 mls/hr Q24H JASVIR Infusion Insulin Human Lispro 10 unit 07/24/24 22:00 07/27/24 05:31 Insulin Lispro (Admelog) 1 Unit/0.01 Ml Unit SC 08/23/24 21:59 10 unit TID JASVIR Administration Insulin Human Lispro 0 unit 07/25/24 21:00 07/27/24 07:37 Insulin Lispro (Admelog) 1 Unit/0.01 Ml Unit SC 08/24/24 20:59 Not Given ACHS [facility] Protocol Loratadine 10 mg 07/25/24 09:00 07/26/24 09:56 Loratadine 10 Mg Tablet PO 08/24/24 08:59 10 mg QDAY JASVIR Administration Montelukast Sodium 10 mg 07/24/24 21:00 07/26/24 21:00 Montelukast Sodium 10 Mg Tablet PO 08/23/24 20:59 10 mg HS JASVIR Administration Ondansetron HCl 4 mg 07/24/24 15:15 Ondansetron Inj 2 Mg/Ml Inj 2 Ml IV 08/23/24 15:14 Q6H PRN NAUSEA OR VOMITING Protocol Oxycodone/Acetaminophen 1 tab 07/24/24 15:15 Oxycodone/Apap 5/325 Tablet PO 07/29/24 15:14 Q6H PRN PAIN SCALE 4-6 (Moderate Pantoprazole Sodium 40 mg 07/24/24 15:15 07/26/24 09:55 Pantoprazole Inj 40 Mg Vial IVP 08/23/24 15:14 40 mg QDAY JASVIR Administration Pharmacy Consult 1 each 07/24/24 16:15 Vancomycin Pharmacy To Dose 1 Each Each IV 08/23/24 16:14 QDAY PRN CONSULT Zinc Sulfate 220 mg 07/25/24 14:42 07/26/24 09:55 Zinc Sulfate 220 Mg Capsule PO 08/24/24 14:41 220 mg QDAY JASVIR Administration Plan In summary: 58-year-old female with PMHx of T2 IDDM admitted for right foot abscess. Completed I&D with general surgery. PICC line was inserted successfully today. Pending home with home health placement. She will discharge to home with home health with IV/oral ANTIBIOTICS. Appreciate recommendations from general surgery. Left foot abscess Left foot cellulitis S/p I&D with general surgery Sepsis (resolved) Admitted for left foot abscess and cellulitis after stepping on a nail. Septic on admission with 4/4 SIRS: Fever, tachycardia, tachypnea, leukocytosis. Adequately fluid resuscitated. Sepsis resolved. CT showed extensive soft tissue infection with gas-forming organism, early osteomyelitis of proximal phalanx of second digit. Completed uncomplicated I&D with general surgery on 07/25/2024. Continued on VANCOMYCIN and ZOSYN. 48-hour blood culture negative. Final abscess culture negative. Completed PICC line placement. Discharge with IV and oral ANTIBIOTICS as below. Pending home with home health placement. Completed ZOSYN and VANCOMYCIN (07/24 to 07/27) ? Continue CEFTRIAXONE 2 g daily (07/27 to present) ? Continue DOXYCYCLINE 100 mg p.o. BID (07/27 to present) ? Wound care T2 IDDM On admission, A1c 10.9, GLUCOSE controlled. Home meds include RYBELSUS, TRESIBA 15 HS, lispro 10 TID. Patient has allergy to LANTUS and METFORMIN. ? Continue TRESIBA 15 units HS (patient's home med) ? Continue LISPRO 10 units TID ? Continue sliding scale ? Accu-Cheks Severe peripheral neuropathy Chronic, absent sensation of distal digits in both bilateral UE/LE. ? Continue home GABAPENTIN 800 mg TID HTN (resolved) Denies history of hypertension. Currently not taking any ANTIHYPERTENSIVE medication. Admission BP 148/75, resolved. Currently normotensive. Allergic rhinitis ? Continue LORATADINE 10 mg daily ? Continue MONTELUKAST 10 mg HS Health maintenance Diet:CHO consistent GI prophylaxis: PROTONIX DVT prophylaxis: HEPARIN Antibiotics: CEFTRIAXONE, DOXYCYCLINE CODE STATUS: DNR Disposition: Pending general surgery recommendations
[2024-07-27] MEDS: lorataDINE 10 MG TABLET PO (09:27)
[2024-07-27] MEDS: ASCORBIC ACID 250 MG TABLET 500 MG PO (09:27)
[2024-07-27] MEDS: ZINC SULFATE 220 MG CAPSULE PO (09:27)
[2024-07-27] MEDS: PANTOPRAZOLE INJ 40 MG VIAL IVP (09:32)
--- NOTE | 2024-07-27 10:07 | XR_ITS ---
Examination: Ultrasound-guided needle placement left basilic vein. Dual-lumen central line placement (PICC line). Fluoroscopy AP chest, portable, 2 views Exam date and time:July 27, 2024 1201 hours INDICATIONS: Knee for long-term intravenous antibiotic therapy for osteomyelitis A timeout was completed verifying correct patient, procedure, site, positioning Informed consent provided Technique: The patient's site was prepped and draped in sterile fashion. Maximum Sterile Barrier Technique used including cap, mask, sterile gown, sterile gloves, and sterile full body drape. If ultrasound technique used: sterile gel and sterile probe covers. Hand Hygiene performed using proper scrub, soap and water, or alcohol-based hand rub. Ultrasound utilized to confirm patency of the left basilic vein Successful ultrasound-guided 21-gauge Puncture into the left basilic vein Ultrasound images recorded and stored. 5 cc 1% lidocaine administered for local anesthetic. Successful micropuncture with a 21-gauge needle is performed. 0.18 wire guide is then introduced into the SVC under fluoroscopic guidance. Dual-lumen catheter dilator is then introduced, followed by the catheter in the SVC and proper position under fluoroscopic guidance. Successful aspiration of blood and flushing with heparinized saline is then performed in the 2 venous limbs. The catheter sutured in place. Findings: Under fluoroscopy, the tip of the catheter is in good position in the vena cava. Portable chest x-ray, post line placement is ordered. Estimated blood loss 3 cc The patient tolerated the procedure well and was in stable and satisfactory condition at completion of the procedure Impression: Successful ultrasound-guided needle placement left basilic vein Successful placement of dual lumen central line, percutaneous Fluoroscopy 3.0 minute radiation dose 11.84 milligray 2 spot fluoroscopic chest films. AP chest completion procedure demonstrates satisfactory position central line. May use central line.
--- NOTE | 2024-07-27 10:19 | PC.NURSE ---
Pt. going out for picc line insertion report given to Ismael.
[2024-07-27 11:04] LABS: Vancomycin,Trough 10.1 mcg/mL (5.0-10.0)
[2024-07-27] MEDS: LIDOCAINE INJ PF 1% 30 ML VIAL 9 ML INFL (12:43)
--- NOTE | 2024-07-27 13:30 | PC.NURSE ---
received pt. back on floor on [facility] from the IR AFTER PICC LINE INSERTED ON THE LEFT UPPER ARM. Picc line assessed and its patent.
[2024-07-27] MEDS: DOXYCYCLINE 100 MG TABLET PO (13:47)
[2024-07-27] MEDS: HEPARIN SOD INJ 5000 UNIT/ML VIAL SC (13:48)
[2024-07-27] MEDS: cefTRIAXone/D5w 2gm 2 GM/50 ML BAG IV (15:06)
--- NOTE | 2024-07-27 15:08 | PC.CC ---
Addendum entered and electronically signed by Pily Ashraf [facility] 07/27/24 16:15: Confirmed w/ kelvin Jolley s/w [facility] 07/28 @ 3pm. Original Note: Addendum entered and electronically signed by Pily Ashraf [facility] 07/27/24 16:11: S/W patient who identified son, Shola, as the teachable caregiver. S/W Shola and confirmed he will be available QD x 6 weeks. [facility] will deliver meds today. [facility] RN SOC 07/28. Updated Melany Cortés - discharge patient today. Original Note: Addendum entered and electronically signed by Pily Ashraf [facility] 07/27/24 15:51: S/W patient - no HH preferences. She says she s/w [facility], but [facility] has not yet provided a delivery date to [facility]. In Home Healthcare can see in 24-48H. [facility] can see 07/28. Awaiting response from [facility]. Original Note: Sent HH and IV Abx referrals via [employer]. [facility] accepted and booked. Multiple HH agencies accepting at this time. Will continue to coordinate delivery of IV Abx and HH SOC.
--- NOTE | 2024-07-27 15:55 | ESDS_ITS ---
Planned Discharge Date 07/27/24 DS: Providers Provider Date of admission: 07/24/24 15:15 Primary care physician: BELIA Jones Admitting Provider: Kojo Valdivia MD Attending Provider on Admission: Kip Madsen MD Consults: 07/24/24 14:37 Consult to General Surgery Stat Comment: Consulting Provider: Garrett Goss 07/25/24 06:24 Referral Registered Dietitian Routine Comment: Referral Wound Care Routine Comment: 07/26/24 13:58 Referral OP Wound Healing Dept Routine Comment: Instructions: Left foot I&D 07/[address] Goss Attending Provider on DC: Darius Jesus MD Discharging Provider: Darius Jesus MD DS: Diagnosis Problem List Completed Was Problem List Reviewed/Reconciled?: Yes Hospital Course Hospital Course Hospital course: This is a 58-year-old female with PMHx of T2 IDDM admitted for right foot abscess. CT left foot showed extensive soft tissue infection with gas-forming organism, early osteomyelitis of base of proximal phalanx of second digit. She underwent uncomplicated I&D with general surgery. Completed PICC line insertion and will complete outpatient ANTIBIOTICS with home with home health. Patient stable at the time of discharge. Pain control. No fevers. Leukocytosis near normal. Overall stable to discharge home. PATIENT INSTRUCTIONS: Follow-up with PCP within 1-2 weeks of discharge. Follow-up with general surgery, Dr. Goss within 1-2 weeks of discharge. Continue to follow-up with outpatient wound care. Return to Emergency Room if symptoms persist, worsen, or new symptoms develop. Continue taking medications as prescribed below: ? CEFTRIAXONE 2g IV daily until 09/04/2024 ? DOXYCYCLINE 100 mg 1 tablet daily until 09/04/2024 Continue all other medications as prescribed by your doctor. ADMISSION DIAGNOSES: Left foot abscess Left foot cellulitis Early osteomyelitis of left proximal phalanx of second digit S/p I&D with general surgery Sepsis (resolved) T2 IDDM Severe peripheral neuropathy HTN (resolved) Allergic rhinitis Patient case was discussed with attending, Darius Jesus MD and senior residents Dr. Chambers and Dr. Alex. Dianna Mosley DO PGYI Senior Resident Attestation: I discussed with and supervised the management internship physician involved in the care of this patient. I personally saw and examined the patient and discussed the assessment and plan with the entire medicine team, including my attending. I agree with the discharge plan as documented above. Anson Alex MD PGY2 Internal Medicine Time Spent with Patient Time attestation: Total time spent providing and/or coordinating discharge services: Greater than 35 minutes. Home Health Home Health Referral Orders: 07/27/24 14:04 Home Health Referral Routine Reason For Exam: IV antibiotics with PICC line Home-Bound The patient must either because of illness or injury, need the aid of supportive devices such as crutches, canes, wheelchairs, and walkers; the use of special transportation; or the assistance of another person in order to leave their place of residence; OR have a condition such that leaving his or her home is medically contraindicated. In addition, the patient also meets the following criteria: patient is normally unable to leave the home and leaving home requires considerable taxing effort. Addendum to Home Health Certification Practitioner's Certification: I certify that the patient has been under my care in the hospital and the care of attending physician (see below). We had a rebr-[id number] encounter on (see date below). My clinical findings indicate that the patient is home bound per the above criteria and the Home Health Services noted in these orders are medically necessary. The primary reason for the [id number]-[id number] encounter is related to the fact that the patient requires home health services. Date Certifying Pnwj-wg-Nooy Physician Encounter: 07/24/24 Physician's Name who will Assume Oversight for Services: Maribell Metcalf Physician's Phone No.who will Assume Oversight for Service: [employer]OL [employer]INET ASSEMBLER - Community Resources: No PT to Evaluate: Yes PT to evaluate and provide a treatmnet plan to increase patient's mobility and strength. Wound Care: Yes Home Health RN - Wound Care Order: Left foot x 3 (dorsal x1, plantar x2)- wound cleanse, pat dry, pack with 1/2 inch strip packing and cover with dry dressing and PRN for falling off. Please teach patient and family wound care and send 1 week supply on discharge IV Therapy: Yes: Blood work weekly start on 08/02/24- CBC, CMP, CRP, ESR- results sent to PCP IV Medication: Ceftriaxone IV Dose: 2 Gram IV Frequency: Daily IV Stop Date: 09/04/24 Discontinue PICC Line Once Treatment Complete: Yes RN Safety Evaluation: Yes RN to evaluate and create a plan of care that will produce positive outcomes. Palliative Treatment: No Palliative treatment and evaluate the need for hospice. Home Health Aide - Personal Care: No Home Health Aide to assist with any ADL's. Exam Vital Signs Temp Pulse Resp BP Pulse Ox O2 Del Method O2 Flow Rate 98.0 F 84 18 156/83 H 98 Nasal Cannula 3 07/27/24 10:36 07/27/24 13:10 07/27/24 13:10 07/27/24 13:10 07/27/24 13:10 07/27/24 13:10 07/27/24 13:10 Narrative Exam GENERAL * Normal-appearing middle-aged female, no apparent distress. HEENT * NCAT.?KENDALL. Oral mucosa is moist. Patent Nares NECK * Supple, nontender, no thyromegaly, no meningismus, no JVD, no step offs CHEST * RRR, no m/g/r * CTAB, no w/r/r. Symmetrical chest rise. No intercostal subcostal retraction * Atraumatic, nontender, no crepitus, symmetrical expansion. ABDOMEN * Soft, flat, nontender. No guarding/rebound tenderness/masses. * Bowel sounds presents EXTREMITIES * Nontender, no cyanosis, no edema * No edema/cyanosis.? * Left foot: dressing dry, intact and in place. No discharge. SKIN * Warm and dry, no jaundice/rashes. NEUROMUSCULAR * No lumbar or midline, no CVA, no paraspinal muscle spasm or tenderness. * Moves all 4 extremities well, with full ROM and good CSM. * VILCHIS x4, CN II-XII grossly intact. * No focal neurologic deficits. PSYCHIATRY * Normal mood and affect, cooperative, no SI or HI or hallucinations. Discharge Plan Plan Patient Disposition: Home w/HOME HEALTH Patient condition on transfer: Stable Care Plan Goals: Follow-up with PCP within 1-2 weeks of discharge. Follow-up with general surgery, Dr. Goss within 1-2 weeks of discharge. Continue to follow-up with outpatient wound care. Return to Emergency Room if symptoms persist, worsen, or new symptoms develop. Continue taking medications as prescribed below: ? CEFTRIAXONE 2g IV daily until 09/04/2024 ? DOXYCYCLINE 100 mg 1 tablet daily until 09/04/2024 - Increased the dose of Tresiba to 15 units at night. Please do weekly renal panel, CBC and ESR level daily and removal of PICC line at the completion of antibiotics on 09/04/24. Continue all other medications as prescribed by your doctor. - Follow up at [facility], [address] [place] [address]. Call [phone] to reschedule appointment - Ambulate using left heel of foot only. Elevate left foot above heart level while sitting or laying down -Wound care to left foot: Wash hands with soap and water. Remove old dressing and packing strips. Cleanse well with wound cleanser spray. Wash hands again. Pack each wound (1 top of foot, 2 bottom of foot) with strip packing until wound cavity is filled. Cover with dry gauze and secure with gauze roll. Change once a day and as needed for falling off. Prescriptions/Referrals Prescriptions/Med Rec: New ceftriaxone in dextrose,iso-os 2 gram/50 mL Piggyback 2 g IV QDAY 38 Days Qty: 38 0RF doxycycline hyclate 100 mg Tablet 100 mg PO BID 38 Days Qty: 76 0RF Continued gabapentin 800 mg Tablet 800 mg PO TID insulin lispro [Humalog KwikPen Insulin] 100 unit/mL insulin pen 10 unit SUBCUT 3XD Patient Comments: INJECT 10 UNITS SUBCUTANEOUSLY 3 TIMES A DAY Rybelsus 7 mg tablet 7 mg PO QDAY Patient Comments: TAKE 1 TABLET BY MOUTH IN THE MORNING 30-45 MINUTES BEFORE BREAKFAST Changed insulin degludec [Tresiba FlexTouch U-200] 200 unit/mL (3 mL) insulin pen 15 unit SUBCUT QDAY Qty: 9 2RF Patient Comments: INJECT 10 UNITS SUBCUTANEOUSLY AT BEDTIME Referrals: Garrett Goss MD [Physician] - Maribell Metcalf FNP [Primary Care Provider] - Patient/Caregiver Discharge Instructions Discharge Activity: activity as tolerated Education Materials: CGM, Diabetes: Keeping Feet Healthy, Diabetes: Inspecting Your Feet, Preventing Surgical Site Infections, ED Using an Injection Pen Print Language: Mohawk Stand Alone Forms: Sharron Award Info., Patient Portal Info Letter Discharge Order Discharge Orders: Discharge (Routine); Ordered 07/27/24 Ordered By: Anson Alex Quality Discharge Quality Measures VTE prophylaxis Attestestation MD Attestation Face to face evaluation was performed by me. I have personally seen and examined the patient. I discussed the assessment and plan with the entire medicine team. I reviewed available medical records, imaging studies, laboratory results. I agree with the above subjective data, objective findings, assessment and plan except as corrected by me or noted below left foot abscess left foot osteomyelitis sepsis, due to above, poa, without septic shock Would be great if had surgical treatment option of osteomyelitis , Gen Surgery Dr Goss- s/p I/D- recommended IV ABxs for osteomyelitis picc line, home health for iv Abxs- weekly labs while on IV Abxs, remove picc after last dose of iv abxs, plan is for total of 6 weeks, also po doxy BID wound care per recs- home health pcp fu and Gen Surgery Dr goss fu after dc
--- NOTE | 2024-07-28 11:06 | PC.CM ---
dc summary and picc line report sent to [facility].
== END 2024-07-27 17:55 | disposition home health service (06) | DRG 872 ==
LOC: SERX 14:46 → SERHOLD 15:25 → S3SX 20:30
PROVIDERS: Nurse Practitioner Primary Care; Surgery; Admitting Provider Internal Medicine; Emergency Provider Emergency Medicine; PCP Nurse Practitioner Family; Visit Provider Internal Medicine
PROC: 0J9R0ZX Drainage of Left Foot Subcutaneous Tissue and Fascia, Open Approach, Diagnostic (ICD-10-PCS; principal; 2024-07-25 12:30)
DX: A41.9 Sepsis, unspecified organism (principal); L02.611 Cutaneous abscess of right foot; L02.612 Cutaneous abscess of left foot; L03.116 Cellulitis of left lower limb; M86.8X7 Other osteomyelitis, ankle and foot; J30.2 Other seasonal allergic rhinitis; M79.89 Other specified soft tissue disorders; E11.42 Type 2 diabetes mellitus with diabetic polyneuropathy; W45.0XXA Nail entering through skin, initial encounter; S91.339A Puncture wound without foreign body, unspecified foot, initial encounter; Z79.4 Long term (current) use of insulin; I10 Essential (primary) hypertension; J30.9 Allergic rhinitis, unspecified; Z66 Do not resuscitate; Z87.891 Personal history of nicotine dependence; E11.69 Type 2 diabetes mellitus with other specified complication; Z23 Encounter for immunization
CPT/HCPCS: 36415; 73630; 73700; 80053; 80202; 81001; 83036; 83605; 83735; 84100; 84145; 85025; 85610; 85652; 85730; 86140; 87040; 87070; 87075; 87205; 90714; 96365; 96366; 96367; 96375; 99285; A4217; A4649; C1751; C1769; C1894; J0696; J1643; J1815; J2250; J2270; J2371; J2405; J2470; J2543; J2704; J2765; J3010; J3370; J3372; J3490; J7030; J7050; A9270

== ENCOUNTER → 2024-07-24 | Outpatient (CLI) | payer MEDICARE, MEDICAID, SELFPAY | END | disposition home or self-care (01) | PROVIDERS: PCP Podiatrist; Referring Provider Podiatrist; Visit Provider Student in an Organized Health Care Education/Training Program | DX: I96 Gangrene, not elsewhere classified (principal); E11.621 Type 2 diabetes mellitus with foot ulcer; L97.422 Non-pressure chronic ulcer of left heel and midfoot with fat layer exposed; L97.511 Non-pressure chronic ulcer of other part of right foot limited to breakdown of skin; E11.40 Type 2 diabetes mellitus with diabetic neuropathy, unspecified; E66.9 Obesity, unspecified; I73.9 Peripheral vascular disease, unspecified; F41.9 Anxiety disorder, unspecified; L03.90 Cellulitis, unspecified; M86.9 Osteomyelitis, unspecified; Z89.421 Acquired absence of other right toe(s); Z87.891 Personal history of nicotine dependence | CPT/HCPCS: 99213; G0463 ==

== ENCOUNTER → 2024-07-30 | Outpatient (CLI) | payer MEDICARE, MEDICAID, SELFPAY ==
[2024-07-30 13:57] LABS: Basophils % (Auto) 0 % (0-2.5); Eosinophils # (Auto) 0.1 Thou/mm3 (0.0-0.5); Eosinophils % (Auto) 1 % (0-10); Hematocrit 24.5 % (36.0-46.0); Immature Granulocytes % (Auto) 1 % (0-0); Immature Granulocytes Auto 0.07 Thou/mm3 (0.00-0.00); Lymphocytes # (Auto) 1.9 Thou/mm3 (1.0-4.8); Lymphocytes % (Auto) 17 % (10-50); Mean Corpuscular HGB Conc 32.7 g/dl (31.0-37.0); Mean Corpuscular Hemoglobin 27.2 pg (25.0-35.0); Mean Corpuscular Volume 83 fL (80-100); Monocytes # (Auto) 0.5 Thou/mm3 (0.0-0.8); Monocytes % (Auto) 5 % (0-12); Neutrophils # (Auto) 8.7 Thou/mm3 (1.8-7.7); Neutrophils % (Auto) 77 % (37-80); Nucleated Red Blood Cell % 0 /100 WBC (0); Platelet Count 575 Thou/mm3 (140-440); RDW Standard Deviation 37.2 fL (36.4-46.3); Red Blood Count 2.94 Miln/mm3 (4.00-5.20); White Blood Count 11.4 Thou/mm3 (3.6-11.0)
[2024-07-30 14:13] LABS: Sed Rate (ESR) 47 mm/hr (0-30)
[2024-07-30 15:46] LABS: Alanine Aminotransferase 29 U/L (10-49); Albumin, Serum 3.6 gm/dL (3.5-5.0); Albumin/Globulin Ratio 1.4 (1.2-2.2); Alkaline Phosphatase 82 U/L (46-116); Anion Gap 8 (7-16); Aspartate Amino Transferase 25 U/L (0-34); BUN/Creatinine Ratio 16 Ratio (12-20); Bilirubin,Total < 0.2 mg/dL (0.3-1.2); Blood Urea Nitrogen 13 mg/dL (9-23); Calcium 8.7 mg/dL (8.3-10.6); Carbon Dioxide 29.7 mMol/L (20.0-31.0); Chloride 102 mMol/L (98-107); Creatinine (Component) 0.8 mg/dL (0.6-1.3); Globulin 2.6 gm/dL (2.3-3.5); Glucose 122 mg/dL (74-106); Osmolality,Calculated 280 (275-295); Potassium 4.1 mMol/L (3.4-5.1); Sodium 140 mMol/L (136-145); Total Protein 6.2 gm/dL (5.7-8.2); eGFR > 60 See Note
== END | disposition home or self-care (01) ==
PROVIDERS: PCP Nurse Practitioner Family; Referring Provider Internal Medicine; Visit Provider Internal Medicine
DX: L03.116 Cellulitis of left lower limb (principal); A41.9 Sepsis, unspecified organism
CPT/HCPCS: 36415; 80053; 85025; 85652; 86140

== ENCOUNTER → 2024-08-02 | Outpatient (CLI) | payer MEDICARE, MEDICAID, SELFPAY | END | disposition home or self-care (01) | LOC: SWHD 10:29 | PROVIDERS: PCP Nurse Practitioner Family; Referring Provider Nurse Practitioner Family; Visit Provider Student in an Organized Health Care Education/Training Program | DX: L97.425 Non-pressure chronic ulcer of left heel and midfoot with muscle involvement without evidence of necrosis (principal); L97.511 Non-pressure chronic ulcer of other part of right foot limited to breakdown of skin; E11.40 Type 2 diabetes mellitus with diabetic neuropathy, unspecified; E66.9 Obesity, unspecified; I73.9 Peripheral vascular disease, unspecified; Z87.891 Personal history of nicotine dependence; F41.9 Anxiety disorder, unspecified; L03.90 Cellulitis, unspecified; Z89.421 Acquired absence of other right toe(s); M86.9 Osteomyelitis, unspecified | CPT/HCPCS: 11043; 97597; A9270 ==

== ENCOUNTER → 2024-08-06 | Outpatient (CLI) | payer MEDICARE, MEDICAID, SELFPAY ==
[2024-08-06 15:29] LABS: Basophils % (Auto) 1 % (0-2.5); Eosinophils # (Auto) 0.1 Thou/mm3 (0.0-0.5); Eosinophils % (Auto) 1 % (0-10); Immature Granulocytes % (Auto) 0 % (0-0); Immature Granulocytes Auto 0.02 Thou/mm3 (0.00-0.00); Lymphocytes # (Auto) 1.3 Thou/mm3 (1.0-4.8); Lymphocytes % (Auto) 23 % (10-50); Mean Corpuscular HGB Conc 31.8 g/dl (31.0-37.0); Mean Corpuscular Hemoglobin 26.9 pg (25.0-35.0); Mean Corpuscular Volume 85 fL (80-100); Monocytes # (Auto) 0.3 Thou/mm3 (0.0-0.8); Monocytes % (Auto) 6 % (0-12); Neutrophils % (Auto) 70 % (37-80); Nucleated Red Blood Cell % 0 /100 WBC (0); Platelet Count 309 Thou/mm3 (140-440); RDW Standard Deviation 40.7 fL (36.4-46.3); Red Blood Count 2.34 Miln/mm3 (4.00-5.20); White Blood Count 5.8 Thou/mm3 (3.6-11.0)
[2024-08-06 15:33] LABS: Hematocrit 19.8 % (36.0-46.0); Hemoglobin 6.3 g/dL (12.0-16.0)
[2024-08-06 15:42] LABS: Path Review Blood Smear Sent to Pathologist
[2024-08-06 15:59] LABS: Alanine Aminotransferase 15 U/L (10-49); Albumin, Serum 3.6 gm/dL (3.5-5.0); Albumin/Globulin Ratio 1.4 (1.2-2.2); Alkaline Phosphatase 74 U/L (46-116); Anion Gap 7 (7-16); Aspartate Amino Transferase 10 U/L (0-34); BUN/Creatinine Ratio 19 Ratio (12-20); Bilirubin,Total 0.2 mg/dL (0.3-1.2); Blood Urea Nitrogen 15 mg/dL (9-23); C-Reactive Protein < 0.4 mg/dL (0.0-0.9); Calcium 8.4 mg/dL (8.3-10.6); Calcium (Corrected) 8.7 mg/dL (8.5-10.1); Carbon Dioxide 29.3 mMol/L (20.0-31.0); Chloride 102 mMol/L (98-107); Creatinine (Component) 0.8 mg/dL (0.6-1.3); Globulin 2.5 gm/dL (2.3-3.5); Glucose 166 mg/dL (74-106); Osmolality,Calculated 280 (275-295); Potassium 3.9 mMol/L (3.4-5.1); Sodium 138 mMol/L (136-145); Total Protein 6.1 gm/dL (5.7-8.2); eGFR > 60 See Note
[2024-08-06 16:01] LABS: Sed Rate (ESR) 1 mm/hr (0-30)
== END | disposition home or self-care (01) ==
LOC: SLDO 14:26
PROVIDERS: PCP Nurse Practitioner Family; Referring Provider Internal Medicine; Visit Provider Internal Medicine
DX: A41.9 Sepsis, unspecified organism (principal)
CPT/HCPCS: 36415; 80053; 85025; 85652; 86140

== ENCOUNTER → 2024-08-09 | Outpatient (CLI) | payer MEDICARE, MEDICAID, SELFPAY | END | disposition home or self-care (01) | LOC: SWHD 10:24 | PROVIDERS: PCP Nurse Practitioner Family; Referring Provider Nurse Practitioner Family; Visit Provider Student in an Organized Health Care Education/Training Program | DX: E11.621 Type 2 diabetes mellitus with foot ulcer (principal); L97.428 Non-pressure chronic ulcer of left heel and midfoot with other specified severity; L97.511 Non-pressure chronic ulcer of other part of right foot limited to breakdown of skin; E11.40 Type 2 diabetes mellitus with diabetic neuropathy, unspecified; E66.9 Obesity, unspecified; I73.9 Peripheral vascular disease, unspecified; Z87.891 Personal history of nicotine dependence; F41.9 Anxiety disorder, unspecified; L03.90 Cellulitis, unspecified; Z89.421 Acquired absence of other right toe(s); M86.9 Osteomyelitis, unspecified | CPT/HCPCS: 97597; 11042; A9270 ==

== ENCOUNTER → 2024-08-13 | Outpatient (CLI) | payer MEDICARE, MEDICAID, SELFPAY ==
[2024-08-13 16:30] LABS: Basophils # (Auto) 0.1 Thou/mm3 (0.0-0.2); Basophils % (Auto) 1 % (0-2.5); Eosinophils # (Auto) 0.1 Thou/mm3 (0.0-0.5); Eosinophils % (Auto) 2 % (0-10); Hematocrit 28.5 % (36.0-46.0); Hemoglobin 9.1 g/dL (12.0-16.0); Immature Granulocytes % (Auto) 0 % (0-0); Immature Granulocytes Auto 0.01 Thou/mm3 (0.00-0.00); Lymphocytes # (Auto) 1.4 Thou/mm3 (1.0-4.8); Lymphocytes % (Auto) 25 % (10-50); Mean Corpuscular HGB Conc 31.9 g/dl (31.0-37.0); Mean Corpuscular Hemoglobin 26.8 pg (25.0-35.0); Mean Corpuscular Volume 84 fL (80-100); Monocytes # (Auto) 0.4 Thou/mm3 (0.0-0.8); Monocytes % (Auto) 7 % (0-12); Neutrophils # (Auto) 3.6 Thou/mm3 (1.8-7.7); Neutrophils % (Auto) 64 % (37-80); Nucleated Red Blood Cell % 0 /100 WBC (0); Platelet Count 297 Thou/mm3 (140-440); RDW Standard Deviation 42.5 fL (36.4-46.3); White Blood Count 5.7 Thou/mm3 (3.6-11.0)
[2024-08-13 16:56] LABS: Sed Rate (ESR) 23 mm/hr (0-30)
[2024-08-13 17:01] LABS: Alanine Aminotransferase 16 U/L (10-49); Albumin, Serum 4.1 gm/dL (3.5-5.0); Albumin/Globulin Ratio 1.6 (1.2-2.2); Alkaline Phosphatase 93 U/L (46-116); Anion Gap 7 (7-16); Aspartate Amino Transferase 17 U/L (0-34); BUN/Creatinine Ratio 20 Ratio (12-20); Bilirubin,Total 0.3 mg/dL (0.3-1.2); Blood Urea Nitrogen 20 mg/dL (9-23); C-Reactive Protein < 0.4 mg/dL (0.0-0.9); Calcium 9.2 mg/dL (8.3-10.6); Calcium (Corrected) 9.2 mg/dL (8.5-10.1); Carbon Dioxide 30.2 mMol/L (20.0-31.0); Chloride 100 mMol/L (98-107); Globulin 2.5 gm/dL (2.3-3.5); Glucose 235 mg/dL (74-106); Osmolality,Calculated 284 (275-295); Potassium 5.2 mMol/L (3.4-5.1); Sodium 137 mMol/L (136-145); Total Protein 6.6 gm/dL (5.7-8.2); eGFR > 60 See Note
== END | disposition home or self-care (01) ==
LOC: SLDO 15:01
PROVIDERS: Referring Provider Internal Medicine; Visit Provider Internal Medicine
DX: A41.9 Sepsis, unspecified organism (principal)
CPT/HCPCS: 36415; 80053; 85025; 85652; 86140

== ENCOUNTER → 2024-08-21 | Outpatient (CLI) | payer MEDICARE, MEDICAID, SELFPAY ==
[2024-08-21 18:38] LABS: Basophils % (Auto) 1 % (0-2.5); Eosinophils # (Auto) 0.2 Thou/mm3 (0.0-0.5); Eosinophils % (Auto) 3 % (0-10); Hematocrit 28.8 % (36.0-46.0); Hemoglobin 9.2 g/dL (12.0-16.0); Immature Granulocytes % (Auto) 0 % (0-0); Immature Granulocytes Auto 0.01 Thou/mm3 (0.00-0.00); Lymphocytes # (Auto) 1.7 Thou/mm3 (1.0-4.8); Lymphocytes % (Auto) 28 % (10-50); Mean Corpuscular HGB Conc 31.9 g/dl (31.0-37.0); Mean Corpuscular Hemoglobin 26.7 pg (25.0-35.0); Mean Corpuscular Volume 84 fL (80-100); Monocytes # (Auto) 0.4 Thou/mm3 (0.0-0.8); Monocytes % (Auto) 7 % (0-12); Neutrophils # (Auto) 3.6 Thou/mm3 (1.8-7.7); Neutrophils % (Auto) 60 % (37-80); Nucleated Red Blood Cell % 0 /100 WBC (0); Platelet Count 264 Thou/mm3 (140-440); RDW Standard Deviation 44.5 fL (36.4-46.3); Red Blood Count 3.44 Miln/mm3 (4.00-5.20); White Blood Count 5.9 Thou/mm3 (3.6-11.0)
[2024-08-21 19:01] LABS: Alanine Aminotransferase 13 U/L (10-49); Albumin, Serum 3.9 gm/dL (3.5-5.0); Albumin/Globulin Ratio 1.6 (1.2-2.2); Alkaline Phosphatase 78 U/L (46-116); Anion Gap 8 (7-16); Aspartate Amino Transferase 16 U/L (0-34); BUN/Creatinine Ratio 15 Ratio (12-20); Bilirubin,Total 0.4 mg/dL (0.3-1.2); Blood Urea Nitrogen 18 mg/dL (9-23); C-Reactive Protein < 0.4 mg/dL (0.0-0.9); Calcium 9.2 mg/dL (8.3-10.6); Calcium (Corrected) 9.3 mg/dL (8.5-10.1); Carbon Dioxide 27.7 mMol/L (20.0-31.0); Chloride 100 mMol/L (98-107); Creatinine (Component) 1.2 mg/dL (0.6-1.3); Globulin 2.5 gm/dL (2.3-3.5); Glucose 153 mg/dL (74-106); Osmolality,Calculated 276 (275-295); Potassium 4.3 mMol/L (3.4-5.1); Sodium 136 mMol/L (136-145); Total Protein 6.4 gm/dL (5.7-8.2); eGFR 53 See Note
[2024-08-21 20:11] LABS: Sed Rate (ESR) 12 mm/hr (0-30)
== END | disposition home or self-care (01) ==
PROVIDERS: PCP Internal Medicine; Referring Provider Internal Medicine; Visit Provider Internal Medicine
DX: A41.9 Sepsis, unspecified organism (principal)
CPT/HCPCS: 36415; 80053; 85025; 85652; 86140

== ENCOUNTER → 2024-08-24 | Outpatient (CLI) | payer MEDICARE, MEDICAID, SELFPAY ==
[2024-08-24 10:39] LABS: Basophils # (Auto) 0.1 Thou/mm3 (0.0-0.2); Basophils % (Auto) 1 % (0-2.5); Eosinophils # (Auto) 0.2 Thou/mm3 (0.0-0.5); Eosinophils % (Auto) 4 % (0-10); Hematocrit 30.1 % (36.0-46.0); Hemoglobin 10.1 g/dL (12.0-16.0); Immature Granulocytes % (Auto) 0 % (0-0); Immature Granulocytes Auto 0.01 Thou/mm3 (0.00-0.00); Lymphocytes # (Auto) 1.3 Thou/mm3 (1.0-4.8); Lymphocytes % (Auto) 27 % (10-50); Mean Corpuscular HGB Conc 33.6 g/dl (31.0-37.0); Mean Corpuscular Hemoglobin 27.4 pg (25.0-35.0); Mean Corpuscular Volume 82 fL (80-100); Monocytes # (Auto) 0.4 Thou/mm3 (0.0-0.8); Monocytes % (Auto) 8 % (0-12); Neutrophils # (Auto) 2.9 Thou/mm3 (1.8-7.7); Neutrophils % (Auto) 60 % (37-80); Nucleated Red Blood Cell % 0 /100 WBC (0); Platelet Count 261 Thou/mm3 (140-440); Red Blood Count 3.69 Miln/mm3 (4.00-5.20); White Blood Count 4.8 Thou/mm3 (3.6-11.0)
[2024-08-24 10:55] LABS: INR 0.9 (0.9-1.3); Partial Thromboplastin Time 25.8 Seconds (22.0-36.0); Prothrombin Time 10.4 Seconds (9.0-12.2)
[2024-08-24 10:56] LABS: Anion Gap 7 (7-16); BUN/Creatinine Ratio 17 Ratio (12-20); Blood Urea Nitrogen 17 mg/dL (9-23); Calcium 9.7 mg/dL (8.3-10.6); Carbon Dioxide 29.4 mMol/L (20.0-31.0); Chloride 101 mMol/L (98-107); Glucose 181 mg/dL (74-106); Osmolality,Calculated 280 (275-295); Potassium 4.5 mMol/L (3.4-5.1); Sodium 137 mMol/L (136-145); eGFR > 60 See Note
== END | disposition home or self-care (01) ==
LOC: COPL 10:02
PROVIDERS: PCP Physician Assistant; Referring Provider Radiology Diagnostic Radiology; Visit Provider Radiology Diagnostic Radiology
DX: Z01.818 Encounter for other preprocedural examination (principal); I73.9 Peripheral vascular disease, unspecified; I82.409 Acute embolism and thrombosis of unspecified deep veins of unspecified lower extremity; R53.1 Weakness; R79.1 Abnormal coagulation profile; R60.9 Edema, unspecified; R53.83 Other fatigue
CPT/HCPCS: 36415; 80048; 85025; 85610; 85730

== ENCOUNTER → 2024-08-28 | Outpatient (CLI) | payer MEDICARE, MEDICAID, SELFPAY ==
[2024-08-28 15:30] LABS: Basophils % (Auto) 1 % (0-2.5); Eosinophils # (Auto) 0.2 Thou/mm3 (0.0-0.5); Eosinophils % (Auto) 4 % (0-10); Hematocrit 27.7 % (36.0-46.0); Hemoglobin 9.1 g/dL (12.0-16.0); Immature Granulocytes % (Auto) 0 % (0-0); Immature Granulocytes Auto 0.01 Thou/mm3 (0.00-0.00); Lymphocytes # (Auto) 1.3 Thou/mm3 (1.0-4.8); Lymphocytes % (Auto) 24 % (10-50); Mean Corpuscular HGB Conc 32.9 g/dl (31.0-37.0); Mean Corpuscular Hemoglobin 26.7 pg (25.0-35.0); Mean Corpuscular Volume 81 fL (80-100); Monocytes # (Auto) 0.4 Thou/mm3 (0.0-0.8); Monocytes % (Auto) 8 % (0-12); Neutrophils # (Auto) 3.3 Thou/mm3 (1.8-7.7); Neutrophils % (Auto) 64 % (37-80); Nucleated Red Blood Cell % 0 /100 WBC (0); Platelet Count 284 Thou/mm3 (140-440); RDW Standard Deviation 40.5 fL (36.4-46.3); Red Blood Count 3.41 Miln/mm3 (4.00-5.20); White Blood Count 5.2 Thou/mm3 (3.6-11.0)
[2024-08-28 15:44] LABS: Sed Rate (ESR) 1 mm/hr (0-30)
[2024-08-28 15:52] LABS: Alanine Aminotransferase 14 U/L (10-49); Albumin, Serum 4.1 gm/dL (3.5-5.0); Albumin/Globulin Ratio 1.7 (1.2-2.2); Anion Gap 10 (7-16); Aspartate Amino Transferase < 8 U/L (0-34); BUN/Creatinine Ratio 15 Ratio (12-20); Bilirubin,Total 0.3 mg/dL (0.3-1.2); Blood Urea Nitrogen 16 mg/dL (9-23); C-Reactive Protein 0.6 mg/dL (0.0-0.9); Calcium 9.1 mg/dL (8.3-10.6); Calcium (Corrected) 9.1 mg/dL (8.5-10.1); Carbon Dioxide 25.8 mMol/L (20.0-31.0); Chloride 98 mMol/L (98-107); Creatinine (Component) 1.1 mg/dL (0.6-1.3); Globulin 2.4 gm/dL (2.3-3.5); Glucose 204 mg/dL (74-106); Osmolality,Calculated 275 (275-295); Potassium 4.2 mMol/L (3.4-5.1); Sodium 134 mMol/L (136-145); Total Protein 6.5 gm/dL (5.7-8.2); eGFR 59 See Note
[2024-08-28 16:03] LABS: Alkaline Phosphatase 87 U/L (46-116)
== END | disposition home or self-care (01) ==
LOC: SLDO 13:28
PROVIDERS: Referring Provider Internal Medicine; Visit Provider Internal Medicine
DX: L03.116 Cellulitis of left lower limb (principal)
CPT/HCPCS: 36415; 80053; 85025; 85652; 86140

== ENCOUNTER → 2024-09-04 | Outpatient (CLI) | payer MEDICARE, MEDICAID, SELFPAY | END | disposition home or self-care (01) | PROVIDERS: PCP Nurse Practitioner Family; Referring Provider Nurse Practitioner Family; Visit Provider Student in an Organized Health Care Education/Training Program | DX: L97.425 Non-pressure chronic ulcer of left heel and midfoot with muscle involvement without evidence of necrosis (principal); L97.512 Non-pressure chronic ulcer of other part of right foot with fat layer exposed; E11.40 Type 2 diabetes mellitus with diabetic neuropathy, unspecified; E66.9 Obesity, unspecified; I73.9 Peripheral vascular disease, unspecified; F41.9 Anxiety disorder, unspecified; M86.9 Osteomyelitis, unspecified; L03.90 Cellulitis, unspecified; Z87.891 Personal history of nicotine dependence; Z89.421 Acquired absence of other right toe(s) | CPT/HCPCS: 11042; A9270 ==

== ENCOUNTER → 2024-09-11 | Outpatient (CLI) | payer MEDICARE, MEDICAID, SELFPAY | END | disposition home or self-care (01) | LOC: SWHD 13:09 | PROVIDERS: PCP Nurse Practitioner Family; Referring Provider Nurse Practitioner Family; Visit Provider Surgery | DX: E11.621 Type 2 diabetes mellitus with foot ulcer (principal); L97.428 Non-pressure chronic ulcer of left heel and midfoot with other specified severity; E66.9 Obesity, unspecified; I73.9 Peripheral vascular disease, unspecified; F41.9 Anxiety disorder, unspecified; L03.90 Cellulitis, unspecified; Z89.421 Acquired absence of other right toe(s); M86.9 Osteomyelitis, unspecified | CPT/HCPCS: 11043; 99213; A9270; G0463 ==

== ENCOUNTER 2024-12-28 14:41 | Inpatient (IN) | payer MEDICARE, MEDICAID, SELFPAY ==
[2024-12-28 14:55] VITALS: BP 129/68; PULSE 95; RESP 20; TEMP 38.1; O2SAT 97
--- NOTE | 2024-12-28 15:02 | XR_ITS ---
Examination: Foot, left, 3 views Technique: AP, oblique, lateral views foot, 3 views Date and time of exam: December 28, 2024 1510 hours Comparison July 24, 2024 INDICATIONS: Redness swelling and pain left foot this week FINDINGS: Periosteal new bone involving the base of the proximal phalanx second digit Early cortical bone destruction involving the cortex of the base of the proximal phalanx first digit No pathologic fracture IMPRESSION: Early osteomyelitis proximal phalanges first and second digits Consider MRI foot without contrast follow-up
--- NOTE | 2024-12-28 15:03 | PD.EDRME ---
Rapid Medical Screening Exam [facility] Arrival date/time: 12/28/24 14:41 59-year-old female with a history of type 2 diabetes presents to the emergency room with a chief complaint of tenderness, swelling, drainage to the left foot third digit. Patient states she was punctured on the foot by a belle tail weed 3 days ago and her symptoms have progressively gotten worse. She was seen by her primary care provider given oral antibiotics which have not worked. I have greeted and performed a focused initial assessment of this patient. A comprehensive ED assessment and evaluation of the patient, analysis of all test results, and completion of the medical decision making process will be conducted by additional ED providers. Chief Complaint: Ankle/Foot Injury Vital signs: Vital Signs Temperature 100.5 F H 12/28/24 14:55 Pulse Rate 95 12/28/24 14:55 Respiratory Rate 20 12/28/24 14:55 Blood Pressure 129/68 12/28/24 14:55 Pulse Oximetry (%) 97 12/28/24 14:55 Oxygen Delivery Method Room Air 12/28/24 14:55 Vital signs reviewed by provider: Yes
[2024-12-28 15:35] LABS: Lactate (Lactic Acid) 1.3 mMol/L (0.4-2.0)
[2024-12-28] MEDS: ACETAMINOPHEN 500 MG TABLET 1000 MG PO (15:36)
[2024-12-28 15:38] LABS: Basophils # (Auto) 0.1 Thou/mm3 (0.0-0.2); Basophils % (Auto) 0 % (0-2.5); Eosinophils # (Auto) 0.1 Thou/mm3 (0.0-0.5); Eosinophils % (Auto) 1 % (0-10); Hematocrit 27.2 % (36.0-46.0); Hemoglobin 9.5 g/dL (12.0-16.0); Immature Granulocytes % (Auto) 0 % (0-0); Immature Granulocytes Auto 0.04 Thou/mm3 (0.00-0.00); Lymphocytes % (Auto) 9 % (10-50); Mean Corpuscular HGB Conc 34.9 g/dl (31.0-37.0); Mean Corpuscular Hemoglobin 28.1 pg (25.0-35.0); Mean Corpuscular Volume 81 fL (80-100); Monocytes # (Auto) 0.7 Thou/mm3 (0.0-0.8); Monocytes % (Auto) 6 % (0-12); Neutrophils # (Auto) 9.5 Thou/mm3 (1.8-7.7); Neutrophils % (Auto) 83 % (37-80); Nucleated Red Blood Cell % 0 /100 WBC (0); Platelet Count 292 Thou/mm3 (140-440); Red Blood Count 3.38 Miln/mm3 (4.00-5.20); White Blood Count 11.4 Thou/mm3 (3.6-11.0)
[2024-12-28 16:07] LABS: Sed Rate (ESR) 40 mm/hr (0-30)
[2024-12-28 16:08] LABS: Alanine Aminotransferase 16 U/L (10-49); Albumin, Serum 4.3 gm/dL (3.5-5.0); Albumin/Globulin Ratio 1.7 (1.2-2.2); Alkaline Phosphatase 87 U/L (46-116); Anion Gap 7 (7-16); Aspartate Amino Transferase 17 U/L (0-34); BUN/Creatinine Ratio 9 Ratio (12-20); Bilirubin,Total 0.3 mg/dL (0.3-1.2); Blood Urea Nitrogen 14 mg/dL (9-23); C-Reactive Protein 9.5 mg/dL (0.0-0.9); Calcium 8.9 mg/dL (8.3-10.6); Calcium (Corrected) 8.9 mg/dL (8.5-10.1); Carbon Dioxide 24.6 mMol/L (20.0-31.0); Chloride 97 mMol/L (98-107); Creatinine (Component) 1.6 mg/dL (0.6-1.3); Globulin 2.6 gm/dL (2.3-3.5); Glucose 251 mg/dL (74-106); Osmolality,Calculated 267 (275-295); Potassium 4.2 mMol/L (3.4-5.1); Procalcitonin 0.07 ng/ml (0.0-0.49); Sodium 129 mMol/L (136-145); Total Protein 6.9 gm/dL (5.7-8.2); eGFR 37 See Note
--- NOTE | 2024-12-28 17:08 | EDNOTE_ITS ---
Lower Extremity Injury RME/HPI General Chief Complaint: Ankle/Foot Injury Stated Complaint: Left 2nd, 3rd toes infected X 3 days Time Seen by Provider: 12/28/24 16:21 Arrival date/time: 12/28/24 14:41 RME / HPI RME / HPI Narrative: 59-year-old female with a history of type 2 diabetes presents to the emergency room with a chief complaint of tenderness, swelling, drainage to the left foot third digit. Patient states she was punctured on the foot by a belle tail weed 3 days ago and her symptoms have progressively gotten worse. She was seen by her primary care provider given oral antibiotics which have not worked. She is taking clindamycin and Bactrim for the last 2 days. Today patient was noted to have fever also. Also noted today with puslike drainage and foul-smelling drainage. Also noted redness to the dorsum of the foot Related Data Home Medications ?Medication ?Instructions ?Recorded ?Confirmed gabapentin 800 mg tablet 800 mg PO TID 12/29/2012/28 insulin lispro 100 unit/mL 10 unit subcut 3XD 07/24/24 12/28/24 subcutaneous pen (Humalog KwikPen (U-100) Insulin) clindamycin HCl 300 mg capsule 300 mg PO QID 12/28/24 12/28/24 montelukast 10 mg tablet 10 mg PO QDAY 12/28/2412/28 sulfamethoxazole 800 1 tab PO BID 12/28/24 mg-trimethoprim 160 mg tablet Previous Rx's ?Medication ?Instructions ?Recorded insulin degludec 200 unit/mL (3 15 unit (0.075 mL) sub cut QDAY #9 07/27/24 mL) subcutaneous pen (Tresiba mL FlexTouch U-200 insulin) Allergies Allergy/AdvReac Type Severity Reaction Status Date / Time animal dander Allergy Severe Swelling Verified 12/28/24 14:47 of Lip/Tongue/Throat bacitracin Allergy Severe Blister Verified 12/28/24 14:47 honey Allergy Severe Swelling Verified 12/28/24 14:47 of Lip/Tongue/Throat sucralose (From Splenda Allergy Severe Swelling Verified 12/28/24 14:47 (sucralose)) of Lip/Tongue/Throat Artificial Sweetener Allergy Severe Swelling Uncoded 12/28/24 14:47 of Lip/Tongue/Throat Review of Systems Review of Systems Narrative Review of Systems: Review of system reviewed and within normal limits except mentioned in HPI ED Exam Narrative Physical exam: VITAL SIGNS: Reviewed. GENERAL APPEARANCE: Alert and interactive, follows commands, no acute distress, HEAD AND FACE: Non-traumatic. ENT: PERRL, pink conjunctivitis, eyelid no trauma, Mucous membrane moist. NECK: Supple, nontender, no nuchal rigidity. CHEST: No tenderness, no crepitus, no paradoxical movement, no retractions. LUNGS: Clear, well ventilated, symmetric, no rales, no wheezing, no ronchi, no stridor, good breath sounds bilaterally. HEART: Regular rate, regular rhythm, no murmur, no gallops. ABDOMEN: Soft, positive bowel sounds, nondistended, no guarding, nontender, no rebound, no masses, RECTAL: Deferred. GENITAL: Deferred. NEUROLOGICAL: Gross motor function intact sensory function intact, Appropriate for age. MUSCULOSKELETAL: low back nontender, full range of motion. EXTREMITIES: Left third to black blister formation with puslike drainage, foul- smelling and swelling and redness to the dorsum of the foot, full range of motion. SKIN: Color pink, dry, no rash, no lacerations, no abrasions, no contusions. LYMPHATICS: Deferred. Course Quality Measures none Orders Category Date Time Status COVID-19 Screening Questionnaire NOW Care 12/28/24 17:19 Active Decision to Admit X1 Care 12/28/24 17:19 Completed Consult to General Surgery Stat Cons 12/28/24 17:06 Ordered XR foot comp LT min 3V Stat Exams 12/28/24 15:02 Completed Blood Culture (Lab) Stat Lab 12/28/24 15:24 Received CBC Stat Lab 12/28/24 15:22 Completed CMP [Comprehensive Metabolic Panel] Stat Lab 12/28/24 15:22 Completed CRP [C-Reactive Protein] Stat Lab 12/28/24 15:22 Completed ESR [Sed Rate (ESR)] Stat Lab 12/28/24 15:22 Completed Lactate (Lactic Acid) Stat Lab 12/28/24 15:22 Completed Procalcitonin Stat Lab 12/28/24 15:22 Completed Acetaminophen Tab [Tylenol ES Tab] Med 12/28/24 15:02 Discontinued 1,000 mg PO X1 ONE Piper/Tazo 3.375 gm Premix [Zosyn] Med 12/28/24 17:07 Discontinued 3.375 gm in 50 ml IV X1 Vancomycin/Ns 1 gm Ivpb 200 ml Med 12/28/24 17:07 Discontinued IV X1 Vital Signs Vital signs: Vital Signs Temperature 100.5 F H 12/28/24 14:55 Pulse Rate 95 12/28/24 14:55 Respiratory Rate 20 12/28/24 14:55 Blood Pressure 129/68 12/28/24 14:55 Pulse Oximetry (%) 97 12/28/24 14:55 Oxygen Delivery Method Room Air 12/28/24 14:55 Extremity Injury, Lower MDM Narrative MDM Narrative:: 59-year-old female with a history of type 2 diabetes presents to the emergency room with a chief complaint of tenderness, swelling, drainage to the left foot third digit. Patient states she was punctured on the foot by a belle tail weed 3 days ago and her symptoms have progressively gotten worse. She was seen by her primary care provider given oral antibiotics which have not worked. She is taking clindamycin and Bactrim for the last 2 days. Today patient was noted to have fever also. Also noted today with puslike drainage and foul-smelling drainage. Also noted redness to the dorsum of the foot X-ray of the foot showed osteomyelitis proximal phalanx 1st and 2nd digit. Case discussed with general surgeon Dr. Goss, who told me to admit the patient under hospitalist he will see the patient also. Patient received IV vancomycin and IV Zosyn. Plan of care discussed with the patient regarding admission and agrees to be admitted. Indication to do admission is failed antibiotic treatment and infected diabetic foot Patient data External records reviewed:: None Clinical information provided by:: patient and family Social determinants that could affect healthcare access:: none Patient has the following chronic illnesses:: Hypertension diabetes mellitus How is presenting disease/condition affected by chronic disease/condition?: exacerbated by Evaluation data The following diagnostics were reviewed and interpreted by me:: lab results and radiology exam(s) Lab and/or radiology exams considered but not ordered:: None Interpretation Summary: See results MDM Medications / Prescriptions Medications or Prescriptions considered but not ordered:: None Medication administrations:: Medication Administration History Acetaminophen (Acetaminophen 325 Mg Tablet) 650 mg PO Q6H PRN PRN Reason: PAIN SCALE 1-3 (mild Stop: 01/27/25 18:01 Acetaminophen (Acetaminophen 325 Mg Tablet) 650 mg PO Q6H PRN PRN Reason: Fever >100.4 Stop: 01/27/25 18:01 Hydrocodone Bitart/Acetaminophen (Hydrocodone/Apap 10/325 Tab) 1 tab PO Q4HR PRN PRN Reason: PAIN SCALE 7-10 (Severe Stop: 01/02/25 18:01 Last Admin: 12/28/24 18:41 Dose: 1 tab Documented By: XAVIER Dextrose (Dextrose 50%-Water Inj 50 Ml Syringe) 25 ml IV Q15MIN PRN PRN Reason: BG 50-70 responsive npo pt Stop: 01/27/25 18:01 Dextrose (Dextrose 50%-Water Inj 50 Ml Syringe) 50 ml IV Q15MIN PRN PRN Reason: BG <50 OR BG <70 & pt unresponsive Stop: 01/27/25 18:01 Gabapentin 600 mg/ Gabapentin (200 mg) 800 mg PO TID [facility] Stop: 01/27/25 21:59 Last Admin: 12/29/24 05:26 Dose: 800 mg Documented By: Admin: 12/28/24 21:18 Dose: 800 mg Documented By: JI Glucagon (Glucagon Inj 1 Mg Vial) 1 mg IM Q15MIN PRN PRN Reason: BG <70, and no IV access Piperacillin/Tazobactam/Dextrose (Zosyn) 3.375 gm in 50 mls @ 12.5 mls/hr IV Q8HR [facility] Stop: 01/04/25 21:59 Last Admin: 12/29/24 05:25 Dose: 12.5 mls/hr Documented By: Infusion: 12/29/24 01:53 Dose: Infused Documented By: Admin: 12/28/24 21:53 Dose: 12.5 mls/hr Documented By: JI Sodium Chloride (Ns) 1,000 mls @ 125 mls/hr IV .Q8H [facility] Stop: 01/27/25 18:45 Last Admin: 12/29/24 08:08 Dose: 125 mls/hr Documented By: Infusion: 12/29/24 07:41 Dose: Infused Documented By: Admin: 12/28/24 23:41 Dose: 125 mls/hr Documented By: Infusion: 12/28/24 23:41 Dose: Infused Documented By: Admin: 12/28/24 19:29 Dose: 125 mls/hr Documented By: ONEYDA Vancomycin/Sodium Chloride (Vancomycin/Ns 750 Mg Ivpb) 750 mg in 150 mls @ 120 mls/hr IV BID@1000,2200 [facility] Stop: 01/05/25 09:59 Last Admin: 12/29/24 10:19 Dose: 120 mls/hr Documented By: KARY Insulin Glargine (Insulin Glargine (Lantus) 5 Unit/0.05 Ml (Per 5 Units)) 10 unit SC HS [facility] Stop: 01/27/25 20:59 Last Admin: 12/28/24 21:14 Dose: Not Given Documented By: JI Non-Admin Reason: Patient Refused Insulin Human Lispro (Insulin Lispro (Admelog) 1 Unit/0.01 Ml Unit) 0 unit SC Q6HR JASVIR; Protocol Stop: 01/28/25 00:00 Last Admin: 12/29/24 06:03 Dose: Not Given Documented By: JI Non-Admin Reason: Patient Refused Admin: 12/28/24 23:44 Dose: Not Given Documented By: JI Non-Admin Reason: Patient Refused Ondansetron HCl (Ondansetron Inj 2 Mg/Ml Inj 2 Ml) 4 mg IVP Q6H PRN; Protocol PRN Reason: NAUSEA OR VOMITING Stop: 01/27/25 18:01 Last Admin: 12/28/24 18:48 Dose: 4 mg Documented By: XAVIER Oxycodone/Acetaminophen (Oxycodone/Apap 5/325 Tablet) 1 tab PO Q6H PRN PRN Reason: PAIN SCALE 4-6 (Moderate Stop: 01/02/25 18:01 Pantoprazole Sodium (Pantoprazole Inj 40 Mg Vial) 40 mg IVP QDAY [facility] Stop: 01/28/25 08:59 Last Admin: 12/29/24 08:10 Dose: 40 mg Documented By: KARY Pharmacy Consult (Vancomycin Pharmacy To Dose 1 Each Each) 1 each IV QDAY PRN PRN Reason: CONSULT Stop: 01/28/25 08:59 Discontinued Medications Acetaminophen (Acetaminophen 500 Mg Tablet) 1,000 mg PO X1 ONE Stop: 12/28/24 15:03 Last Admin: 12/28/24 15:36 Dose: 1,000 mg Documented By: LAUREANO Gabapentin (Gabapentin 100 Mg Capsule) 800 mg PO TID [facility] Stop: 01/27/25 21:59 Vancomycin/Sodium Chloride (Vancomycin/Ns 1 Gm Ivpb) 200 mls @ 120 mls/hr IV X1 ONE Stop: 12/28/24 18:46 Last Admin: 12/28/24 19:29 Dose: 120 mls/hr Documented By: CB Piperacillin/Tazobactam/Dextrose (Zosyn) 3.375 gm in 50 mls @ 100 mls/hr IV X1 ONE Stop: 12/28/24 17:36 Last Infusion: 12/28/24 19:32 Dose: Infused Documented By: Admin: 12/28/24 18:46 Dose: 100 mls/hr Documented By: CG Sodium Chloride (Ns) 1,000 mls @ 80 mls/hr IV .[id number] [facility] Stop: 01/27/25 18:14 Last Admin: 12/28/24 18:44 Dose: 80 mls/hr Documented By: CG Sodium Chloride (Ns) 1,000 mls @ 999 mls/hr IV .Q1H1M ONE Stop: 12/28/24 19:11 Last Infusion: 12/28/24 19:59 Dose: Infused Documented By: Admin: 12/28/24 18:43 Dose: 999 mls/hr Documented By: CG Insulin Human Lispro (Insulin Lispro (Admelog) 1 Unit/0.01 Ml Unit) 0 unit SC ACHS [facility]; Protocol Stop: 01/27/25 20:59 IV Zosyn and vancomycin Consultations Consultation(s) initiated? (list below): Yes Consultation #1 (Physician, Specialty, Details): Dr Goss General Surgeon on-call thank you Diagnosis Extremity Injury, Lower Differential Diagnosis: other (Diabetic foot infection, osteomyelitis toes, failed antibiotic treatment outpatient) Most likely diagnosis given after review of the tests above:: Diabetic foot infection osteomyelitis toes Admission Indicated Admission indicated?: not indicated Admission Request Was there a request for admission?: Yes Admission Attestation Admission request attestation: Discussed case Hospitalist service regarding admission. Discussed patients ED course, exam findings, labs, and radiology results. The Hospitalist [agrees to accept the patient for admission. Disposition Plan Disposition Plan: Admit Discharge Plan Plan Patient Disposition: Admit Acute Care w/in Hospital Problem List Clinical Impression: Diabetic foot infection, Failure of outpatient treatment
[2024-12-28 17:50] VITALS: BP 132/76; PULSE 77; RESP 18; TEMP 36.7; O2SAT 100
--- NOTE | 2024-12-28 17:57 | ESHP_ITS ---
Documentation for date of: 12/28/24 [facility] History of Present Illness History of present illness: History of Present Illness: This is a 58-year-old female with PMHx of IDDM type II, severe peripheral neuropathy, right middle toe amputation, HTN, and allergic rhinitis, presenting with left third toe wound. On Tuesday she found a belle tail in her shoe but did not feel any sting or pain. Evidently, her son noted toe to be little swollen. She saw her PCP that day and was started on CLINDAMYCIN and BACTRIM which she has been taking daily. Today, she developed an abscess over the same toe, which eventually burst and some purulent discharge coming out. She severe peripheral neuropathy, no sensation throughout the entire foot bilaterally. However today she began noticing pain and burning sensation starting about the ankle and extending proximally over the left foot. She also noted worsening swelling of the left foot compared to the right. She was admitted here in July for left foot abscess and cellulitis, as well as a osteomyelitis of left proximal phalanx of second digit. The time, she denied amputation, elected for I&D with general surgery and was discharged on IV ANTIBIOTICS which she completed. Reports resolutions of symptoms since until this episode. Has subjective fever but denies headaches, chills, visual changes, syncope or presyncope, chest pain, shortness of breath, GI or urinary symptoms. She states she takes her INSULIN as prescribed. Usually her blood sugar are controlled, however this morning her blood sugar reading was 450. Past Medical History: * IDDM 2, severe peripheral neuropathy, right middle toe amputation, HTN, allergic rhinitis. Past Surgical History: * Left proximal phalanx of second digit I&D in July 2024 Medications: * INSULIN DEGLUDEC 15 units, insulin lispro 10 units TID, GABAPENTIN 100 mg TID, RYBELSUS 7 mg daily. Allergies: * BACITRACIN (blister), honey/animal dander/sucralose/Splenda/artificial sweetener (lip/tongue/throat swelling) Family History: * History of diabetes in family. Social History: * Denies alcohol, tobacco or drug use. ED Course: * Tmax 100.5, HR 95, BP 128/68, satting 97% on room air. * CBC showed leukocytosis 11.4, Hgb 9.5, near baseline, PLT 292. * Normal coag study. * CHEM panel showed sodium 129, serum osmolarity 267, chloride 97, CR 1.6 (baseline 1.0), GLUCOSE 251, CRP 9.5, Pro-Calc 0.07. * Left foot x-ray showed early osteomyelitis of proximal phalanx of 1st and 2nd digit. * General surgery has been consulted by ED team, and will evaluate later. Reason for admission: Recurrent osteomyelitis of left third toe requiring IV ANTIBIOTICS and surgical intervention possibly. Exam Vital Signs Temp Pulse Resp BP Pulse Ox O2 Del Method 98.1 F 77 18 132/76 H 100 Room Air 12/28/24 17:50 12/28/24 17:50 12/28/24 17:50 12/28/24 17:50 12/28/24 17:50 12/28/24 17:50 Narrative Exam GENERAL * Normal appearing female, no apparent distress, on room air. HEENT * NCAT.?KENDALL. Oral mucosa is moist. Patent Nares NECK * Supple, nontender, no JVD. CHEST * RRR, no m/g/r * CTAB, no w/r/r, symmetrical expansion. ABDOMEN * Soft, flat, nontender. No guarding/rebound tenderness/masses. * Bowel sounds presents EXTREMITIES * No edema/cyanosis.? SKIN * Warm and dry, no jaundice/rashes. NEUROMUSCULAR * No focal neurologic deficits. FOOT EXAM * Blister involving left third toe, with overlying skin changes including erythema, warmth and swelling. Distal pulses slightly decreased but present bilaterally. No tenderness to palpation, poor sensation in bilateral foot. No evidence of bleeding or discharge from blister. PSYCHIATRY * Normal mood and affect, cooperative, no SI or HI or hallucinations. Results: Labs 12/28/24 15:22 12/28/24 15:22 Labs: Short CBC 12/28/24 Range/Units 15:22 WBC 11.4 H (3.6-11.0) Thou/mm3 Hgb 9.5 L (12.0-16.0) g/dL Hct 27.2 L (36.0-46.0) % Plt Count 292 (140-440) Thou/mm3 BMP 12/28/24 15:22 Sodium 129 L Potassium 4.2 Chloride 97 L Carbon Dioxide 24.6 BUN 14 Creatinine 1.6 H Glucose 251 H Calcium 8.9 Liver Function 06/27/25 Range/Units 15:22 Total Bilirubin 0.3 (0.3-1.2) mg/dL AST 17 (0-34) U/L ALT 16 (10-49) U/L Alkaline Phosphatase 87 (46-116) U/L Albumin 4.3 (3.5-5.0) gm/dL Quality Measures Quality Measures VTE prophylaxis Medications Home Medications and Allergies Home Medications ?Medication ?Instructions ?Recorded ?Confirmed ?Type gabapentin 800 mg tablet 800 mg PO TID 12/29/2007/24 History insulin lispro 100 unit/mL 10 unit subcut 3XD 07/24/24 07/24/24 History subcutaneous pen (Humalog KwikPen (U-100) Insulin) semaglutide 7 mg tablet (Rybelsus) 7 mg PO QDAY 07/24/24 History Allergies Allergy/AdvReac Type Severity Reaction Status Date / Time animal dander Allergy Severe Swelling Verified 12/28/24 14:47 of Lip/Tongue/Throat bacitracin Allergy Severe Blister Verified 12/28/24 14:47 honey Allergy Severe Swelling Verified 12/28/24 14:47 of Lip/Tongue/Throat sucralose (From Splenda Allergy Severe Swelling Verified 12/28/24 14:47 (sucralose)) of Lip/Tongue/Throat Artificial Sweetener Allergy Severe Swelling Uncoded 12/28/24 14:47 of Lip/Tongue/Throat Visit Medications Vancomycin/Sodium Chloride (Vancomycin/Ns 1 Gm Ivpb) 200 mls @ 120 mls/hr IV X1 ONE Stop: 12/28/24 18:46 Discontinued Medications Acetaminophen (Acetaminophen 500 Mg Tablet) 1,000 mg PO X1 ONE Stop: 12/28/24 15:03 Last Admin: 12/28/24 15:36 Dose: 1,000 mg Piperacillin/Tazobactam/Dextrose (Zosyn) 3.375 gm in 50 mls @ 100 mls/hr IV X1 ONE Stop: 12/28/24 17:36 Assessment & Plan Plan This is a 58-year-old female with PMHx of IDDM type II, severe peripheral neuropathy, right middle toe amputation, HTN, and allergic rhinitis, presenting with left third toe wound. Appreciate recommendations from surgery team. Osteomyelitis of proximal phalanx of 1st and 2nd digit Extensive bilateral peripheral neuropathy Presenting with left third toe lesion after stepping on a belle tail 3 days prior to admission. She has been on BACTRIM/CLINDAMYCIN however reports worsening swelling and discharge this morning as well as subjective fever. She has a history of right third digit amputation secondary to poorly controlled diabetes. She was treated for osteomyelitis of the left proximal phalanx of second digit in July 2024, at that time she elected for I&D and was discharged on ANTIBIOTICS for 6 weeks which she has completed Had fever and mild leukocytosis on admission. CRP was 9.5, Pro-Calc 0.07. Left foot x-ray showed early osteomyelitis of proximal phalanx of 1st and 2nd digit. General surgery is on board and will evaluate for possible intervention. ? Pain control ? Wound care ? Glycemic control ? Started NS bolus 1.0 L ? Started NS maintenance at 125 cc/H ? Continue VANCOMYCIN (12/28 to present) ? Continue ZOSYN (12/28 to present) ? Pending blood culture, wound culture ? Pending general surgery recommendation ? Pending ESR Pre-renal MATTY Mild hyperosmolar hyponatremia Admission sodium 129 (131 corrected to hyperglycemia), serum osmolarity 267, chloride 97, CR 1.6 (baseline 1.0). Hyponatremia likely combination MATTY and possible pseudohyponatremia in setting of hyperglycemia (reports glucose 450 this AM). Mild MATTY likely dehydrational. ? Renally dose meds, avoid overdiuresis and NEPHROTOXINS ? Daily CMP ? Anticipate improvement with NS as above Uncontrolled IDDM type II Severe bilateral LE peripheral neuropathy A1C 10.9 from 07/2024. Admission GLUCOSE 250s, however reports a.m. GLUCOSE was 450. Home INSULIN regimen includes DEGLUDEC 15 units q. day, HUMALOG 10 units TID, also on RYBELSUS 7 mg daily. ? Accu-Cheks ? Continue home GABAPENTIN 800 mg TID ? INSULIN sliding scale ? INSULIN glargine 10 units HS (currently NPO) ? Pending A1c Health maintenance Diet: NPO GI prophylaxis: PROTONIX DVT prophylaxis: SCD Antibiotics: ZOSYN, VANCOMYCIN CODE STATUS: DNR Disposition: Admitted for osteomyelitis, pending surgery recommendations Case was discussed with attending physician and senior resident. DO ONESIMO Pierce This document was transcribed using voice recognition technology. Minor inaccuracies may be present. Attending Provider Attestation/Addendum I Yuri Olson MD reviewed the note and agree with the resident's assessment & plan with exceptions as below. I have personally reviewed labs, imaging, home meds/prior records, examined the patient, formulated and discussed management plan with the IM team. A 59-year-old female with history of diabetes mellitus complicated by peripheral neuropathy and diabetic foot wounds previously had amputation on right toe had diabetic foot wound concerning for osteomyelitis s/p IV antibiotic course completion in outpatient via PICC line presented to ED with left foot pain swelling and discharge. Patient reports that she saw a belle tail in her socks. Noted to be febrile, have mild leukocytosis with significant elevation in inflammatory markers along with hyponatremia and MATTY. Will empirically start on Zosyn and vancomycin, administer NS IV bolus resuscitation followed by maintenance at 125 an hour, consult surgery/podiatry for further evaluation of the osteomyelitis requiring surgical intervention
[2024-12-28 18:03] VITALS: BP 131/75; PULSE 75; RESP 18; TEMP 36.8; O2SAT 99
[2024-12-28 18:10] VITALS: BMI 26.5
[2024-12-28 18:11] VITALS: BMI 26.5
[2024-12-28 18:25] VITALS: O2SAT 98
[2024-12-28 18:30] VITALS: BP 131/75; O2SAT 99
[2024-12-28] MEDS: HYDROcodone/APAP 10/325 TAB PO (18:41)
[2024-12-28] MEDS: SODIUM CHLORIDE 0.9% 1000 ML 1,000 ML 999 ML IV (18:43)
[2024-12-28] MEDS: SODIUM CHLORIDE 0.9% 1000 ML 1,000 ML 80 ML IV (18:44)
[2024-12-28] MEDS: PIPER/TAZO 3.375 GM PREMIX 3.375 GM/50 ML BAG IV ×2 (18:46→21:53)
[2024-12-28] MEDS: ONDANSETRON INJ 2 MG/ML INJ 2 ML 4 MG IVP (18:48)
[2024-12-28 18:58] LABS: Sed Rate (ESR) 34 mm/hr (0-30)
[2024-12-28 19:03] LABS: C-Reactive Protein 8.7 mg/dL (0.0-0.9)
[2024-12-28] MEDS: SODIUM CHLORIDE 0.9% 1000 ML 1,000 ML 125 ML IV ×2 (19:29→23:41)
[2024-12-28] MEDS: VANCOMYCIN/NS 1 GM IVPB 200 ML IV (19:29)
[2024-12-28 19:30] VITALS: BP 134/69; PULSE 79; RESP 18; TEMP 36.6; O2SAT 97
[2024-12-28 20:35] VITALS: BMI 30.2
[2024-12-28] MEDS: GABAPENTIN 600 MG, GABAPENTIN 200 MG 800 MG PO (21:18)
[2024-12-29] VITALS (7 sets, daily range): BP systolic 96–148; BP diastolic 53–80; PULSE 72–95; RESP 18–20; TEMP 36.1–36.2; O2SAT 95–98
[2024-12-29 00:47] LABS: Collection Type, Urine Clean Catch
[2024-12-29 00:51] LABS: Bilirubin,Urine Negative (Negative); Blood,Urine Negative (Negative); Clarity,Urine Clear (Clear/Hazy); Color,Urine Lt-Yellow (Lt Yel-Yel); Glucose, Urine 1+ (Negative); Ketones,Urine Negative (Negative); Leukocyte Esterase,Urine Negative (Negative); Nitrite,Urine Negative (Negative); Protein,Urine Negative (Neg - Trace); RBC,Urine 1 /hpf (0-3); Specific Gravity,Urine 1.007 (1.001-1.035); Squamous Epithelial Cell,Urine 1 /hpf (0-5); Urobilinogen,Urine Negative mg/dL (0.0-1.0); WBC,Urine 2 /hpf (0-5)
[2024-12-29] MEDS: PIPER/TAZO 3.375 GM PREMIX 3.375 GM/50 ML BAG IV ×2 (05:25→14:38)
[2024-12-29] MEDS: GABAPENTIN 600 MG, GABAPENTIN 200 MG 800 MG PO ×3 (05:26→22:14)
[2024-12-29 06:47] LABS: Basophils % (Auto) 0 % (0-2.5); Eosinophils # (Auto) 0.3 Thou/mm3 (0.0-0.5); Eosinophils % (Auto) 4 % (0-10); Hematocrit 25.2 % (36.0-46.0); Immature Granulocytes % (Auto) 0 % (0-0); Immature Granulocytes Auto 0.03 Thou/mm3 (0.00-0.00); Lymphocytes # (Auto) 1.1 Thou/mm3 (1.0-4.8); Lymphocytes % (Auto) 13 % (10-50); Mean Corpuscular HGB Conc 34.1 g/dl (31.0-37.0); Mean Corpuscular Hemoglobin 28.3 pg (25.0-35.0); Mean Corpuscular Volume 83 fL (80-100); Monocytes # (Auto) 0.5 Thou/mm3 (0.0-0.8); Monocytes % (Auto) 7 % (0-12); Neutrophils # (Auto) 6.1 Thou/mm3 (1.8-7.7); Neutrophils % (Auto) 76 % (37-80); Nucleated Red Blood Cell % 0 /100 WBC (0); Platelet Count 256 Thou/mm3 (140-440); RDW Standard Deviation 37.9 fL (36.4-46.3); Red Blood Count 3.04 Miln/mm3 (4.00-5.20)
[2024-12-29 06:49] LABS: Hemoglobin 8.6 g/dL (12.0-16.0)
[2024-12-29 07:44] LABS: Glucose Estimated Average 217 mg/dL (80-131); Hemoglobin A1C 9.2 % Hgb (4.8-6.0)
[2024-12-29 08:07] LABS: Alanine Aminotransferase 12 U/L (10-49); Albumin, Serum 3.6 gm/dL (3.5-5.0); Albumin/Globulin Ratio 2.1 (1.2-2.2); Alkaline Phosphatase 62 U/L (46-116); Anion Gap 8 (7-16); Aspartate Amino Transferase 13 U/L (0-34); BUN/Creatinine Ratio 10 Ratio (12-20); Bilirubin,Total 0.4 mg/dL (0.3-1.2); Blood Urea Nitrogen 10 mg/dL (9-23); Calcium 8.4 mg/dL (8.3-10.6); Calcium (Corrected) 8.7 mg/dL (8.5-10.1); Carbon Dioxide 22.2 mMol/L (20.0-31.0); Chloride 102 mMol/L (98-107); Estimated Creatinine Clearance 59.1 mL/min (>60); Globulin 1.7 gm/dL (2.3-3.5); Glucose 169 mg/dL (74-106); Magnesium 1.6 mg/dL (1.6-2.6); Osmolality,Calculated 267 (275-295); Potassium 4.2 mMol/L (3.4-5.1); Sodium 132 mMol/L (136-145); Total Protein 5.3 gm/dL (5.7-8.2); eGFR > 60 See Note
[2024-12-29] MEDS: SODIUM CHLORIDE 0.9% 1000 ML 1,000 ML 125 ML IV ×2 (08:08→16:18)
[2024-12-29] MEDS: PANTOPRAZOLE INJ 40 MG VIAL IVP (08:10)
[2024-12-29] MEDS: VANCOMYCIN/NS 750 MG IVPB 750 MG/150 ML BAG 120 MG IV ×2 (10:19→22:14)
--- NOTE | 2024-12-29 10:47 | PD.SURCONS ---
HPI Consult details Consult date: 12/29/24 Reason for consultation narrative: Left foot osteomyelitis History of present illness: 59-year-old female with history of diabetes and peripheral neuropathy has had amputation of right second toe, and incision and drainage of left foot in the past. She has noted a belle tail in her shoes after which she noted a blister on the left third toe with increased swelling and erythema. She denies nausea, vomiting, fever or chills. X-ray revealed early osteomyelitis of 1st and 2nd digits. She was started on IV antibiotics and admitted for further management. Review of Systems Constitutional Constitutional: Denies chills and Denies fever(s) Cardiovascular Cardiovascular: Denies chest pain Respiratory Respiratory: Denies cough Gastrointestinal Gastrointestinal: Denies abdominal pain Hematologic/Lymphatic Hematologic/Lymphatic: Denies easy bleeding and Denies easy bruising Past Medical History Surgical History OTHER SURGICAL HX: , craniotomy with excision of brain tumor, right second toe amputation, I&D left foot Meds Home Medications and Allergies Home Medications ?Medication ?Instructions ?Recorded ?Confirmed ?Type gabapentin 800 mg tablet 800 mg PO TID 12/29/20 12/28/24 History insulin lispro 100 unit/mL 10 unit subcut 3XD 07/24/24 12/28/24 History subcutaneous pen (Humalog KwikPen (U-100) Insulin) clindamycin HCl 300 mg capsule 300 mg PO QID 12/28/24 12/28/24 History montelukast 10 mg tablet 10 mg PO QDAY 12/28/24 12/28/24 History sulfamethoxazole 800 1 tab PO BID 12/28/24 12/28/24 History mg-trimethoprim 160 mg tablet Allergies Allergy/AdvReac Type Severity Reaction Status Date / Time animal dander Allergy Severe Swelling Verified 12/28/24 14:47 of Lip/Tongue/Throat bacitracin Allergy Severe Blister Verified 12/28/24 14:47 honey Allergy Severe Swelling Verified 12/28/24 14:47 of Lip/Tongue/Throat sucralose (From Splenda Allergy Severe Swelling Verified 12/28/24 14:47 (sucralose)) of Lip/Tongue/Throat Artificial Sweetener Allergy Severe Swelling Uncoded 12/28/24 14:47 of Lip/Tongue/Throat Exam Vital Signs Temp Pulse Resp BP Pulse Ox O2 Del Method 96.9 F 85 19 124/62 95 Room Air 12/29/24 08:00 12/29/24 08:00 12/29/24 08:00 12/29/24 08:00 12/29/24 08:00 12/29/24 08:00 Constitutional Constitutional: no acute distress Routine Extremities Exam Comments: She has palpable DP and PT pulses on the left. She has edema and cellulitis of left foot. She has some blister formation on the medial and lateral aspect of the third toe without evidence of gangrene or abscess at this time Assessment & Plan Additional Assessment Additional comments: Cellulitis of left foot with early osteomyelitis of 1st and 2nd digits. She has blister formation of the left third toe that was deroofed Plan Continue IV antibiotics and elevate left lower extremity above the heart. No indications for surgical intervention at this time
[2024-12-29] MEDS: INSULIN LISPRO (AdmeLOG) 1 UNIT/0.01 ML UNIT SC ×3 (12:10→22:35)
--- NOTE | 2024-12-29 16:51 | ESPR_ITS ---
<Statement entered by Yuri Olson MD - 12/31/24 16:51> I Yuri Olson MD reviewed the note and agree with the resident's assessment & plan with exceptions as below. I have personally reviewed labs, imaging, home meds/prior records, examined the patient, formulated and discussed management plan with the IM team. A 59-year-old female with history of diabetes mellitus complicated by peripheral neuropathy and diabetic foot wounds previously had amputation on right toe had diabetic foot wound concerning for osteomyelitis s/p IV antibiotic course completion in outpatient via PICC line presented to ED with left foot pain swelling and discharge. Fever resolved, hyponatremia and MATTY improved.. Continue Zosyn and vancomycin, administer NS IV bolus resuscitation followed by maintenance at 125 an hour, surgery consulted and signed off with recommendations of medical management. Consult ID for optimal osteomyelitis regimen. Documentation for date of: 12/29/24 Subjective Subjective Interval history: No acute overnight events. Denies new or worsening symptoms. Denies fever, chills, headaches, chest pain, sob, cough, GI or urinary symptoms. No surgical intervention from general surgery perspective. Continued on ANTIBIOTICS. Cultures pending. ID recommendations pending Exam Vital Signs Temp Pulse Resp BP Pulse Ox O2 Del Method 97 F 83 19 125/65 96 Room Air 12/29/24 16:00 12/29/24 16:00 12/29/24 16:00 12/29/24 16:00 12/29/24 16:12/29/24 16:00 Narrative Exam GENERAL * Normal appearing female, no apparent distress, on room air. HEENT * NCAT.?KENDALL. Oral mucosa is moist. Patent Nares NECK * Supple, nontender, no JVD. CHEST * RRR, no m/g/r * CTAB, no w/r/r, symmetrical expansion. ABDOMEN * Soft, flat, nontender. No guarding/rebound tenderness/masses. * Bowel sounds presents EXTREMITIES * No edema/cyanosis.? SKIN * Warm and dry, no jaundice/rashes. NEUROMUSCULAR * No focal neurologic deficits. FOOT EXAM * Blister involving left third toe, with overlying skin changes including erythema, warmth and swelling. Distal pulses slightly decreased but present bilaterally. No tenderness to palpation, poor sensation in bilateral foot. No evidence of bleeding or discharge from blister. PSYCHIATRY * Normal mood and affect, cooperative, no SI or HI or hallucinations. Objective Labs 12/29/24 06:03 12/29/24 06:03 Labs: Laboratory Results - last 24 hr 12/28/24 12/28/24 12/29/24 18:20 23:58 06:03 WBC 8.0 RBC 3.04 L Hgb 8.6 L Hct 25.2 L MCV 83 MCH 28.3 MCHC 34.1 RDW Std Deviation 37.9 Plt Count 256 D Neut % (Auto) 76 Lymph % (Auto) 13 Stokes % (Auto) 7 Eos % (Auto) 4 Baso % (Auto) 0 Neut # (Auto) 6.1 Lymph # (Auto) 1.1 Stokes # (Auto) 0.5 Eos # (Auto) 0.3 Baso # (Auto) 0.0 Immature Gran # (Auto) 0.03 H Absolute Nucleated RBC 0.00 Immature Gran % 0 Nucleated RBC % 0 ESR 34 H Sodium 132 L Potassium 4.2 Chloride 102 Carbon Dioxide 22.2 Anion Gap 8 BUN 10 Creatinine 1.0 D Estim Creat Clear Calc 59.1 L eGFR > 60 BUN/Creatinine Ratio 10 L Glucose [address] Glu mg/dL 217 H Hemoglobin A1c 9.2 H Calculated Osmolality 267 L Calcium 8.4 Corrected Calcium 8.7 Phosphorus 3.0 Magnesium 1.6 Total Bilirubin 0.4 AST 13 ALT 12 Alkaline Phosphatase 62 D C-Reactive Prot, Quant 8.7 H Total Protein 5.3 L Albumin 3.6 D Globulin 1.7 L Albumin/Globulin Ratio 2.1 Ur Collection Type Clean Catch Urine Color Lt-Yellow Urine Clarity Clear Urine pH 6.0 Ur Specific [place] 1.007 Urine Protein Negative Urine Glucose (UA) 1+ A Urine Ketones Negative Urine Blood Negative Urine Nitrite Negative Urine Bilirubin Negative Urine Urobilinogen (Auto) Negative Ur Leukocyte Esterase Negative Urine RBC 1 Urine WBC 2 Ur Squamous Epith Cells 1 Urine Bacteria None Quality Measures Quality Measures none Assessment & Plan Assessment Current Active Medications: Generic Name Dose Route Start Last Admin Trade Name Freq PRN Reason Stop Dose Admin Acetaminophen 650 mg 12/28/24 18:02 Acetaminophen 325 Mg Tablet PO 01/27/25 18:01 Q6H PRN PAIN SCALE 1-3 (mild Acetaminophen 650 mg 12/28/24 18:02 Acetaminophen 325 Mg Tablet PO 01/27/25 18:01 Q6H PRN Fever >100.4 Hydrocodone Bitart/Acetaminophen 1 tab 12/28/24 18:02 12/28/24 18:41 Hydrocodone/Apap 10/325 Tab PO 01/02/25 18:01 1 tab Q4HR PRN Administration PAIN SCALE 7-10 (Severe Dextrose 25 ml 12/28/24 18:02 Dextrose 50%-Water Inj 50 Ml Syringe IV 01/27/25 18:01 Q15MIN PRN BG 50-70 responsive npo pt Dextrose 50 ml 12/28/24 18:02 Dextrose 50%-Water Inj 50 Ml Syringe IV 01/27/25 18:01 Q15MIN PRN BG <50 OR BG <70 & pt unresponsive Gabapentin 600 mg/ Gabapentin 800 mg 12/28/24 22:00 12/29/24 14:38 200 mg PO 01/27/25 21:59 800 mg TID JASVIR Administration Glucagon 1 mg 12/28/24 18:02 Glucagon Inj 1 Mg Vial IM Q15MIN PRN BG <70, and no IV access Piperacillin/Tazobactam/Dextrose 3.375 gm in 50 mls @ 12.5 mls/hr 12/28/24 22:00 12/29/24 14:38 Zosyn IV 01/04/25 21:59 12.5 mls/hr Q8HR JASVIR Administration Sodium Chloride 1,000 mls @ 125 mls/hr 12/28/24 18:46 12/29/24 16:18 Ns IV 01/27/25 18:45 125 mls/hr .Q8H JASVIR Administration Vancomycin/Sodium Chloride 750 mg in 150 mls @ 120 mls/hr 12/29/24 10:00 12/29/24 10:19 Vancomycin/Ns 750 Mg Ivpb IV 01/05/25 09:59 120 mls/hr BID@1000,2200 JASVIR Administration Insulin Glargine 10 unit 12/28/24 21:00 12/28/24 21:14 Insulin Glargine (Lantus) 5 Unit/0.05 Ml (Per 5 Units) SC 01/27/25 20:59 Not Given HS JASVIR Insulin Human Lispro 0 unit 12/29/24 00:00 12/29/24 12:10 Insulin Lispro (Admelog) 1 Unit/0.01 Ml Unit SC 01/28/25 00:00 1 unit Q6HR JASVIR Administration Protocol Ondansetron HCl 4 mg 12/28/24 18:02 12/28/24 18:48 Ondansetron Inj 2 Mg/Ml Inj 2 Ml IVP 01/27/25 18:01 4 mg Q6H PRN Administration NAUSEA OR VOMITING Protocol Oxycodone/Acetaminophen 1 tab 12/28/24 18:02 Oxycodone/Apap 5/325 Tablet PO 01/02/25 18:01 Q6H PRN PAIN SCALE 4-6 (Moderate Pantoprazole Sodium 40 mg 12/29/24 09:00 12/29/24 08:10 Pantoprazole Inj 40 Mg Vial IVP 01/28/25 08:59 40 mg QDAY JASVIR Administration Pharmacy Consult 1 each 12/29/24 09:00 Vancomycin Pharmacy To Dose 1 Each Each IV 01/28/25 08:59 QDAY PRN CONSULT Plan In summary: 58-year-old female with PMHx of T2 IDDM admitted for right foot abscess. Completed I&D with general surgery. General surgery recommended another day inpatient until cultures finalized. Will likely discharge 07/27. Appreciate recommendations from general surgery. Left foot abscess Left foot cellulitis S/p I&D with general surgery Sepsis (resolved) Admitted for left foot abscess and cellulitis after stepping on a nail. Septic on admission with 4/4 SIRS: Fever, tachycardia, tachypnea, leukocytosis. Adequately fluid resuscitated. Sepsis resolved. CT showed extensive soft tissue infection with gas-forming organism, early osteomyelitis of proximal phalanx of second digit. Completed uncomplicated I&D with general surgery on 07/25/2024. Evaluated by general surgery, recommended ANTIBIOTICS but no interventions at this time. Continued on VANCOMYCIN and ZOSYN. Will need PICC line for osteomyelitis treatment once blood culture is negative. ? Continue ZOSYN 3.375 mg Q6H (07/24 to present) ? Continue VANCOMYCIN daily (07/24 to present) ? Wound care ? Pending cultures: Blood and abscess manage ? PICC line once 48 blood culture negative ? Pending ID recommendations T2 IDDM On admission, A1c 10.9, GLUCOSE controlled. Home meds include RYBELSUS, TRESIBA 15 HS, lispro 10 TID. Patient has allergy to LANTUS and METFORMIN. ? Continue TRESIBA 15 units HS (patient's home med) ? Continue LISPRO 10 units TID ? Continue sliding scale ? Accu-Cheks Severe peripheral neuropathy Chronic, absent sensation of distal digits in both bilateral UE/LE. ? Continue home GABAPENTIN 800 mg TID HTN (resolved) Denies history of hypertension. Currently not taking any ANTIHYPERTENSIVE medication. Admission BP 148/75, resolved. Currently normotensive. Allergic rhinitis ? Continue LORATADINE 10 mg daily ? Continue MONTELUKAST 10 mg HS Health maintenance Diet:CHO consistent GI prophylaxis: PROTONIX DVT prophylaxis: HEPARIN Antibiotics: ZOSYN, VANCOMYCIN CODE STATUS: DNR Disposition: Pending general surgery recommendations. Senior Resident Attestation: The patient reported her pain being well controlled. Dr. Goss recommended continuing with IV vanc and zosyn and pain management. We will continue with current insulin regimen and home medications for her chronic conditions. I discussed with and supervised the technology development intern physician involved in the care of this patient. I personally saw and examined the patient and discussed the assessment and plan with the entire medicine team, including my attending. I agree with the assessment and plan as documented above. Anson Alex MD PGY2 Internal Medicine Attending Provider Attestation/Addendum Patient is status post incision and drainage of left foot abscess by Dr. Goss. Continue current antibiotic treatment. Monitor blood glucose.. Check culture results Possible osteomyelitis spreading further diagnostic results.
[2024-12-29] MEDS: ACETAMINOPHEN 325 MG TABLET 650 MG PO (22:30)
[2024-12-30] MEDS: PIPER/TAZO 3.375 GM PREMIX 3.375 GM/50 ML BAG IV ×3 (00:20→13:53)
[2024-12-30] MEDS: SODIUM CHLORIDE 0.9% 1000 ML 1,000 ML 125 ML IV ×3 (00:20→20:47)
[2024-12-30 03:35] VITALS: BP 123/70; PULSE 70; RESP 16; TEMP 36.8; O2SAT 95
[2024-12-30 05:57] LABS: Basophils % (Auto) 0 % (0-2.5); Eosinophils # (Auto) 0.4 Thou/mm3 (0.0-0.5); Eosinophils % (Auto) 6 % (0-10); Hematocrit 27.3 % (36.0-46.0); Hemoglobin 9.3 g/dL (12.0-16.0); Immature Granulocytes % (Auto) 0 % (0-0); Immature Granulocytes Auto 0.02 Thou/mm3 (0.00-0.00); Lymphocytes # (Auto) 1.6 Thou/mm3 (1.0-4.8); Lymphocytes % (Auto) 23 % (10-50); Mean Corpuscular HGB Conc 34.1 g/dl (31.0-37.0); Mean Corpuscular Hemoglobin 27.8 pg (25.0-35.0); Mean Corpuscular Volume 82 fL (80-100); Monocytes # (Auto) 0.5 Thou/mm3 (0.0-0.8); Monocytes % (Auto) 8 % (0-12); Neutrophils # (Auto) 4.3 Thou/mm3 (1.8-7.7); Neutrophils % (Auto) 63 % (37-80); Nucleated Red Blood Cell % 0 /100 WBC (0); Platelet Count 331 Thou/mm3 (140-440); RDW Standard Deviation 37.9 fL (36.4-46.3); Red Blood Count 3.34 Miln/mm3 (4.00-5.20); White Blood Count 6.9 Thou/mm3 (3.6-11.0)
[2024-12-30] MEDS: GABAPENTIN 600 MG, GABAPENTIN 200 MG 800 MG PO ×3 (06:23→22:02)
[2024-12-30 06:27] LABS: Alanine Aminotransferase 12 U/L (10-49); Albumin, Serum 3.9 gm/dL (3.5-5.0); Albumin/Globulin Ratio 1.7 (1.2-2.2); Alkaline Phosphatase 71 U/L (46-116); Anion Gap 7 (7-16); Aspartate Amino Transferase 13 U/L (0-34); BUN/Creatinine Ratio 9 Ratio (12-20); Bilirubin,Total 0.3 mg/dL (0.3-1.2); Blood Urea Nitrogen 9 mg/dL (9-23); Calcium 8.8 mg/dL (8.3-10.6); Calcium (Corrected) 8.9 mg/dL (8.5-10.1); Carbon Dioxide 25.2 mMol/L (20.0-31.0); Chloride 106 mMol/L (98-107); Estimated Creatinine Clearance 59.1 mL/min (>60); Globulin 2.3 gm/dL (2.3-3.5); Glucose 166 mg/dL (74-106); Magnesium 1.8 mg/dL (1.6-2.6); Osmolality,Calculated 278 (275-295); Phosphorous 2.8 mg/dL (2.4-5.1); Potassium 4.4 mMol/L (3.4-5.1); Sodium 138 mMol/L (136-145); Total Protein 6.2 gm/dL (5.7-8.2); eGFR > 60 See Note
[2024-12-30 08:00] VITALS: BP 125/65; PULSE 65; RESP 15; TEMP 36.9; O2SAT 95
[2024-12-30] MEDS: INSULIN LISPRO (AdmeLOG) 1 UNIT/0.01 ML UNIT SC ×4 (08:03→20:59)
[2024-12-30] MEDS: PANTOPRAZOLE INJ 40 MG VIAL IVP (08:51)
[2024-12-30 10:13] LABS: Vancomycin,Trough 12.3 mcg/mL (5.0-10.0)
[2024-12-30] MEDS: VANCOMYCIN/NS 1 GM IVPB 200 ML IV ×2 (10:55→22:01)
--- NOTE | 2024-12-30 11:35 | PC.SS ---
Patient is alert/oriented. Patient was able to verify demographics. Patient was admitted for osteomyelitis on left foot Patient states she resides with mother and two sons. Patient states her son is the alt medical decision maker. Patient uses a wheelchair and knee rollator. Patient family provides transportation. Patient plans on discharging home with family. Patient states she has hx: diabetes and uses a glucometer machine. PCP: [facility]. Last appt was last week. Pharmacy: [facility]. D/c plan return home Alt medical decision maker: yessenia Haro, d/c plan: home transportation: family
[2024-12-30 12:00] VITALS: BP 141/77; PULSE 76; RESP 16; TEMP 37.2; O2SAT 98
[2024-12-30 16:00] VITALS: BP 135/65; PULSE 80; RESP 15; TEMP 37.1; O2SAT 97
--- NOTE | 2024-12-30 16:13 | ESPR_ITS ---
<Statement entered by Yuri Olson MD - 12/31/24 15:58> I Yuri Olson MD reviewed the note and agree with the resident's assessment & plan with exceptions as below. I have personally reviewed labs, imaging, home meds/prior records, examined the patient, formulated and discussed management plan with the IM team. A 59-year-old female with history of diabetes mellitus complicated by peripheral neuropathy and diabetic foot wounds previously had amputation on right toe had diabetic foot wound concerning for osteomyelitis s/p IV antibiotic course completion in outpatient via PICC line presented to ED with left foot pain swelling and discharge. Admitted for osteomyelitis, hyponatremia, MATTY. Continue Zosyn and vancomycin, continue NS maintenance at 125 an hour, surgery was consulted who signed off with recommendations of no intervention. Consult ID for optimal regimen for osteomyelitis. Documentation for date of: 12/30/24 Subjective Subjective Interval history: Patient afebrile overnight, vitals WNL. Lantus insulin changed to intermediate NPH 12 units at bedtime as patient has allergies to Lantus. We will continue IV antibiotics of Vanco and Zosyn until ID consult which is pending. Anticipating discharge within 24 to 48 hours patient continues to be stable. Exam Vital Signs Temp Pulse Resp BP Pulse Ox O2 Del Method 98.9 F 76 16 141/77 H 98 Nasal Cannula 12/30/24 12:00 12/30/24 12:00 12/30/24 12:00 12/30/24 12:00 12/30/24 12:00 12/30/24 08:00 Narrative Exam GENERAL * Normal appearing female, no apparent distress, on room air. HEENT * NCAT.?KENDALL. Oral mucosa is moist. Patent Nares NECK * Supple, nontender, no JVD. CHEST * RRR, no m/g/r * CTAB, no w/r/r, symmetrical expansion. ABDOMEN * Soft, flat, nontender. No guarding/rebound tenderness/masses. * Bowel sounds presents EXTREMITIES * No edema/cyanosis.? SKIN * Warm and dry, no jaundice/rashes. NEUROMUSCULAR * No focal neurologic deficits. FOOT EXAM * Blister involving left third toe, with overlying skin changes including erythema, warmth and swelling. Distal pulses slightly decreased but present bilaterally. No tenderness to palpation, poor sensation in bilateral foot. No evidence of bleeding or discharge from blister. PSYCHIATRY * Normal mood and affect, cooperative, no SI or HI or hallucinations. Objective Labs 12/30/24 04:34 12/30/24 04:34 Labs: Laboratory Results - last 24 hr 12/30/24 12/30/24 04:34 09:20 WBC 6.9 RBC 3.34 L Hgb 9.3 L Hct 27.3 L MCV 82 MCH 27.8 MCHC 34.1 RDW Std Deviation 37.9 Plt Count 331 D Neut % (Auto) 63 Lymph % (Auto) 23 [place] % (Auto) 8 Eos % (Auto) 6 Baso % (Auto) 0 Neut # (Auto) 4.3 Lymph # (Auto) 1.6 [place] # (Auto) 0.5 Eos # (Auto) 0.4 Baso # (Auto) 0.0 Immature Gran # (Auto) 0.02 H Absolute Nucleated RBC 0.00 Immature Gran % 0 Nucleated RBC % 0 Sodium 138 Potassium 4.4 Chloride 106 Carbon Dioxide 25.2 Anion Gap 7 BUN 9 Creatinine 1.0 Estim Creat Clear Calc 59.1 L eGFR > 60 BUN/Creatinine Ratio 9 L Glucose 166 H Calculated Osmolality 278 Calcium 8.8 Corrected Calcium 8.9 Phosphorus 2.8 Magnesium 1.8 Total Bilirubin 0.3 AST 13 ALT 12 Alkaline Phosphatase 71 Total Protein 6.2 Albumin 3.9 Globulin 2.3 Albumin/Globulin Ratio 1.7 Vancomycin Trough 12.3 H Quality Measures Quality Measures none Assessment & Plan Assessment Current Active Medications: Generic Name Dose Route Start Last Admin Trade Name Freq PRN Reason Stop Dose Admin Acetaminophen 650 mg 12/28/24 18:02 12/29/24 22:30 Acetaminophen 325 Mg Tablet PO 01/27/25 18:01 650 mg Q6H PRN Administration PAIN SCALE 1-3 (mild Acetaminophen 650 mg 12/28/24 18:02 Acetaminophen 325 Mg Tablet PO 01/27/25 18:01 Q6H PRN Fever >100.4 Hydrocodone Bitart/Acetaminophen 1 tab 12/28/24 18:02 12/28/24 18:41 Hydrocodone/Apap 10/325 Tab PO 01/02/25 18:01 1 tab Q4HR PRN Administration PAIN SCALE 7-10 (Severe Dextrose 25 ml 12/28/24 18:02 Dextrose 50%-Water Inj 50 Ml Syringe IV 01/27/25 18:01 Q15MIN PRN BG 50-70 responsive npo pt Dextrose 50 ml 12/28/24 18:02 Dextrose 50%-Water Inj 50 Ml Syringe IV 01/27/25 18:01 Q15MIN PRN BG <50 OR BG <70 & pt unresponsive Gabapentin 600 mg/ Gabapentin 800 mg 12/28/24 22:00 12/30/24 13:53 200 mg PO 01/27/25 21:59 800 mg TID JASVIR Administration Glucagon 1 mg 12/28/24 18:02 Glucagon Inj 1 Mg Vial IM Q15MIN PRN BG <70, and no IV access Piperacillin/Tazobactam/Dextrose 3.375 gm in 50 mls @ 12.5 mls/hr 12/28/24 22:00 12/30/24 13:53 Zosyn IV 01/04/25 21:59 12.5 mls/hr Q8HR JASVIR Administration Sodium Chloride 1,000 mls @ 125 mls/hr 12/28/24 18:46 12/30/24 10:55 Ns IV 01/27/25 18:45 125 mls/hr .Q8H JASVIR Administration Vancomycin/Sodium Chloride 200 mls @ 120 mls/hr 12/30/24 10:00 12/30/24 10:55 Vancomycin/Ns 1 Gm Ivpb IV 01/06/25 09:59 120 mls/hr BID@1000,2200 JASVIR Administration Insulin Human Lispro 0 unit 12/30/24 07:30 12/30/24 12:04 Insulin Lispro (Admelog) 1 Unit/0.01 Ml Unit SC 01/29/25 07:29 4 unit ACHS JASVIR Administration Protocol Insulin Human NPH 12 unit 12/30/24 21:00 Insulin Nph 1 Unit/0.01 Ml (Per Unit) SC 01/29/25 20:59 HS JASVIR Ondansetron HCl 4 mg 12/28/24 18:02 12/28/24 18:48 Ondansetron Inj 2 Mg/Ml Inj 2 Ml IVP 01/27/25 18:01 4 mg Q6H PRN Administration NAUSEA OR VOMITING Protocol Oxycodone/Acetaminophen 1 tab 12/28/24 18:02 Oxycodone/Apap 5/325 Tablet PO 01/02/25 18:01 Q6H PRN PAIN SCALE 4-6 (Moderate Pantoprazole Sodium 40 mg 12/29/24 09:00 12/30/24 08:51 Pantoprazole Inj 40 Mg Vial IVP 01/28/25 08:59 40 mg QDAY JASVIR Administration Pharmacy Consult 1 each 12/29/24 09:00 Vancomycin Pharmacy To Dose 1 Each Each IV 01/28/25 08:59 QDAY PRN CONSULT Plan In summary: 58-year-old female with PMHx of T2 IDDM admitted for right foot abscess. Completed I&D with general surgery. General surgery recommended another day inpatient until cultures finalized. Will likely discharge 07/27. Appreciate recommendations from general surgery. Left foot abscess Left foot cellulitis S/p I&D with general surgery Sepsis (resolved) Admitted for left foot abscess and cellulitis after stepping on a nail. Septic on admission with 4/ SIRS: Fever, tachycardia, tachypnea, leukocytosis. Adequately fluid resuscitated. Sepsis resolved. CT showed extensive soft tissue infection with gas-forming organism, early osteomyelitis of proximal phalanx of second digit. Completed uncomplicated I&D with general surgery on 07/25/2024. Evaluated by general surgery, recommended ANTIBIOTICS but no interventions at this time. Continued on VANCOMYCIN and ZOSYN. Will need PICC line for osteomyelitis treatment once blood culture is negative. ? Continue ZOSYN 3.375 mg Q6H (12/28 - ) ? Continue VANCOMYCIN daily (12/28 - ) ? Wound care ? Pending cultures ? Pending ID recommendations T2 IDDM A1c 9.2% Home meds include RYBELSUS, TRESIBA 15 HS, lispro 10 TID. Patient has allergy to LANTUS and METFORMIN. ? Start NPH insulin 12U at bedtime ? Continue sliding scale + Accu-checks ? Will consider LISPRO TIDWM Severe peripheral neuropathy Chronic, absent sensation of distal digits in both bilateral UE/LE. ? Continue home GABAPENTIN 800 mg TID HTN (resolved) Denies history of hypertension. Currently not taking any ANTIHYPERTENSIVE medication. Admission BP 129/68 - Will consider meds if hypertensive Allergic rhinitis ? Continue MONTELUKAST 10 mg HS Health maintenance Diet:CHO consistent GI prophylaxis: PROTONIX DVT prophylaxis: HEPARIN Antibiotics: ZOSYN, VANCOMYCIN CODE STATUS: DNR Disposition: Pending ID recommendations This patient care was discussed with my attending Dr. Wesley Mejia MD PGY-2 Disclaimer: Minor errors in veterinary hospital shift lead may be present since this note was dictated by speech recognition software.
[2024-12-30 20:00] VITALS: BP 151/80; PULSE 78; RESP 18; TEMP 36.3; O2SAT 97
[2024-12-30] MEDS: INSULIN NPH 1 UNIT/0.01 ML (PER UNIT) 12 UNIT SC (20:59)
[2024-12-30] MEDS: HYDROcodone/APAP 10/325 TAB PO (21:00)
[2024-12-31] VITALS: BP 105/56; PULSE 66; RESP 17; TEMP 36.2; O2SAT 98
[2024-12-31] MEDS: PIPER/TAZO 3.375 GM PREMIX 3.375 GM/50 ML BAG IV ×3 (00:07→14:29)
[2024-12-31 04:00] VITALS: BP 107/64; PULSE 74; RESP 17; TEMP 36.2; O2SAT 97
[2024-12-31] MEDS: GABAPENTIN 600 MG, GABAPENTIN 200 MG 800 MG PO ×2 (05:26→14:29)
[2024-12-31] MEDS: SODIUM CHLORIDE 0.9% 1000 ML 1,000 ML 125 ML IV (05:30)
[2024-12-31 06:19] LABS: Basophils # (Auto) 0.1 Thou/mm3 (0.0-0.2); Basophils % (Auto) 1 % (0-2.5); Eosinophils # (Auto) 0.3 Thou/mm3 (0.0-0.5); Eosinophils % (Auto) 6 % (0-10); Hematocrit 27.3 % (36.0-46.0); Hemoglobin 9.3 g/dL (12.0-16.0); Immature Granulocytes % (Auto) 0 % (0-0); Immature Granulocytes Auto 0.01 Thou/mm3 (0.00-0.00); Lymphocytes # (Auto) 1.7 Thou/mm3 (1.0-4.8); Lymphocytes % (Auto) 30 % (10-50); Mean Corpuscular HGB Conc 34.1 g/dl (31.0-37.0); Mean Corpuscular Hemoglobin 27.9 pg (25.0-35.0); Mean Corpuscular Volume 82 fL (80-100); Monocytes # (Auto) 0.4 Thou/mm3 (0.0-0.8); Monocytes % (Auto) 7 % (0-12); Neutrophils # (Auto) 3.3 Thou/mm3 (1.8-7.7); Neutrophils % (Auto) 57 % (37-80); Nucleated Red Blood Cell % 0 /100 WBC (0); Platelet Count 359 Thou/mm3 (140-440); RDW Standard Deviation 37.9 fL (36.4-46.3); Red Blood Count 3.33 Miln/mm3 (4.00-5.20); White Blood Count 5.8 Thou/mm3 (3.6-11.0)
[2024-12-31 06:39] LABS: Alanine Aminotransferase 10 U/L (10-49); Albumin, Serum 3.7 gm/dL (3.5-5.0); Albumin/Globulin Ratio 1.5 (1.2-2.2); Alkaline Phosphatase 69 U/L (46-116); Anion Gap 6 (7-16); Aspartate Amino Transferase 12 U/L (0-34); BUN/Creatinine Ratio 9 Ratio (12-20); Bilirubin,Total 0.2 mg/dL (0.3-1.2); Blood Urea Nitrogen 10 mg/dL (9-23); Calcium 8.7 mg/dL (8.3-10.6); Calcium (Corrected) 8.9 mg/dL (8.5-10.1); Carbon Dioxide 27.9 mMol/L (20.0-31.0); Chloride 108 mMol/L (98-107); Creatinine (Component) 1.1 mg/dL (0.6-1.3); Estimated Creatinine Clearance 53.7 mL/min (>60); Globulin 2.5 gm/dL (2.3-3.5); Glucose 140 mg/dL (74-106); Magnesium 1.7 mg/dL (1.6-2.6); Osmolality,Calculated 284 (275-295); Phosphorous 3.9 mg/dL (2.4-5.1); Sodium 142 mMol/L (136-145); Total Protein 6.2 gm/dL (5.7-8.2); eGFR 58 See Note
[2024-12-31 08:00] VITALS: BP 118/57; PULSE 72; RESP 18; TEMP 36.1; O2SAT 93
--- NOTE | 2024-12-31 09:16 | PD.IDPROG ---
Subjective Subjective Interval history: xray with early osteo of foot. also seen on imaging in july. esr not too bad 36 Exam Vital Signs Temp Pulse Resp BP Pulse Ox O2 Del Method 97 F 72 18 118/57 L 93 L Nasal Cannula 12/31/24 08:00 12/31/24 08:00 12/31/24 08:00 12/31/24 08:00 12/31/24 08:00 12/31/24 08:00 Narrative Exam see dictation, L middle toe red compared to the rest and sl swollen. re treating with iv not sensible. bc neg Objective - Internal Medicine Labs 12/31/24 04:44 12/31/24 04:44 Labs: Laboratory Results - last 24 hr 12/30/24 12/31/24 09:20 04:44 WBC 5.8 RBC 3.33 L Hgb 9.3 L Hct 27.3 L MCV 82 MCH 27.9 MCHC 34.1 RDW Std Deviation 37.9 Plt Count 359 Neut % (Auto) 57 Lymph % (Auto) 30 [place] % (Auto) 7 Eos % (Auto) 6 Baso % (Auto) 1 Neut # (Auto) 3.3 Lymph # (Auto) 1.7 [place] # (Auto) 0.4 Eos # (Auto) 0.3 Baso # (Auto) 0.1 Immature Gran # (Auto) 0.01 H Absolute Nucleated RBC 0.00 Immature Gran % 0 Nucleated RBC % 0 Sodium 142 Potassium 4.0 Chloride 108 H Carbon Dioxide 27.9 Anion Gap 6 L BUN 10 Creatinine 1.1 Estim Creat Clear Calc 53.7 L eGFR 58 L BUN/Creatinine Ratio 9 L Glucose 140 H Calculated Osmolality 284 Calcium 8.7 Corrected Calcium 8.9 Phosphorus 3.9 Magnesium 1.7 Total Bilirubin 0.2 L AST 12 ALT 10 Alkaline Phosphatase 69 Total Protein 6.2 Albumin 3.7 Globulin 2.5 Albumin/Globulin Ratio 1.5 Vancomycin Trough 12.3 H Assessment & Plan A&P Narrative early osteo of foot, >1 toe involved by imaging, previously treated dm II, a1c 9.2 noted. so control needs to improve to avoid amputation success in digits with rx not as good as other bones re treatment may be the definition of crazy, doing the same thing over again and expecting a different result. if you want to try something different, then try po doxy 100 bid for 6 weeks alone with monthly cbc, renal panel, esr may use keflex if cx show a s strain of staph but so far cx are neg Time Spent With Patient Time: Total time spent is greater than 50% in coordination of care (as documented) at patient's floor/unit and/or counseling patient:
[2024-12-31] MEDS: PANTOPRAZOLE INJ 40 MG VIAL IVP (09:21)
[2024-12-31] MEDS: MONTELUKAST SODIUM 10 MG TABLET PO (09:22)
[2024-12-31] MEDS: VANCOMYCIN/NS 1 GM IVPB 200 ML IV (10:15)
[2024-12-31] MEDS: INSULIN LISPRO (AdmeLOG) 1 UNIT/0.01 ML UNIT SC (11:57)
[2024-12-31] MEDS: INSULIN LISPRO (AdmeLOG) 1 UNIT/0.01 ML UNIT 3 UNIT SC (11:58)
[2024-12-31 12:00] VITALS: BP 147/79; PULSE 80; RESP 18; TEMP 36.1; O2SAT 97
--- NOTE | 2024-12-31 14:15 | ESDS_ITS ---
<Statement entered by Yuri Olson MD - 12/31/24 16:00> I Yuri Olson MD reviewed the note and agree with the resident's assessment & plan with exceptions as below. I have personally reviewed labs, imaging, home meds/prior records, examined the patient, formulated and discussed management plan with the IM team. A 59-year-old female with history of diabetes mellitus complicated by peripheral neuropathy and diabetic foot wounds previously had amputation on right toe had diabetic foot wound concerning for osteomyelitis s/p IV antibiotic course completion in outpatient via PICC line presented to ED with left foot pain swelling and discharge. Admitted for osteomyelitis,. Resolved hyponatremia and MATTY. Discontinue Zosyn and vancomycin, discontinue NS. surgery was consulted who signed off with recommendations of no intervention. Will discharge on doxycycline p.o. for 6 weeks with routine lab monitoring. CBC, CMP, inflammatory markers in 3-4-week follow-up with PCP. Planned Discharge Date 12/31/24 DS: Providers Provider Date of admission: 12/28/24 18:02 Primary care physician: Physician Ailyn Primary/Family Admitting Provider: Yuri Olson MD Attending Provider on Admission: Yuri Olson MD Consults: 12/28/24 17:06 Consult to General Surgery Stat Comment: Diabetic toe infection Consulting Provider: Garrett Goss 12/28/24 18:34 Referral OP Wound Healing Dept Routine Comment: 12/28/24 23:15 Referral Wound Care Routine Comment: 12/29/24 11:30 Consult to Infectious Diseases Routine Comment: Osteo of left 3rd toe. No intervention from surg Consulting Provider: Abel Sparks Attending Provider on DC: Yuri Olson MD Discharging Provider: Yuri Olson MD DS: Diagnosis Problem List Completed Was Problem List Reviewed/Reconciled?: Yes Hospital Course Hospital Course Hospital course: A 59-year-old female with history of diabetes mellitus complicated by peripheral neuropathy and diabetic foot wounds previously had amputation on right toe, presented with abscess of left foot involving 3rd digit. Left foot x-ray showed osteomyelitis of proximal phalanx 1st and 2nd digit. General surgery consulted who recommended no intervention at this time. Started on IV ANTIBIOTICS. ID recommended discharge on oral ANTIBIOTICS. She will continue 6-week therapy of DOXYCYCLINE with repeat monthly labs. PATIENT INSTRUCTIONS: * Follow-up with PCP within 1-2 weeks of discharge. * Follow-up with Infection Disease within 1-2 weeks of discharge. * Return to Emergency Room if symptoms persist, worsen, or new symptoms develop. * Continue taking DOXYCYCLINE 100 mg twice daily for 6 more week. * Repeat labs (CBC, Renal Panel, ESR) every month while you're on antibiotics. * Continue taking medications as prescribed below. ADMISSION DIAGNOSES: Osteomyelitis of proximal phalanx of 1st and 2nd digit Extensive bilateral peripheral neuropathy Pre-renal MATTY (resolved) Mild hyperosmolar hyponatremia Uncontrolled IDDM type II Severe bilateral LE peripheral neuropathy Case was discussed with attending physician and senior resident. Dianna Mosley DO PGYII Time Spent with Patient Time attestation: Total time spent providing and/or coordinating discharge services: Time spent: Greater than 30 minutes Exam Vital Signs Temp Pulse Resp BP Pulse Ox O2 Del Method 97 F 72 18 118/57 L 93 L Nasal Cannula 12/31/24 08:00 12/31/24 08:00 12/31/24 08:00 12/31/24 08:00 12/31/24 08:00 12/31/24 08:00 Narrative Exam GENERAL * Normal appearing female, no apparent distress, on room air. HEENT * NCAT.?KENDALL. Oral mucosa is moist. Patent Nares NECK * Supple, nontender, no JVD. CHEST * RRR, no m/g/r * CTAB, no w/r/r, symmetrical expansion. ABDOMEN * Soft, flat, nontender. No guarding/rebound tenderness/masses. * Bowel sounds presents EXTREMITIES * No edema/cyanosis.? SKIN * Warm and dry, no jaundice/rashes. NEUROMUSCULAR * No focal neurologic deficits. FOOT EXAM * Blister involving left third toe, with overlying skin changes including erythema, warmth and swelling. Distal pulses slightly decreased but present bilaterally. No tenderness to palpation, poor sensation in bilateral foot. No evidence of bleeding or discharge from blister. PSYCHIATRY * Normal mood and affect, cooperative, no SI or HI or hallucinations. Discharge Plan Plan Patient Disposition: HOME (Self Care) Patient condition on transfer: Stable Care Plan Goals: * Follow-up with PCP within 1-2 weeks of discharge. * Follow-up with Infection Disease within 1-2 weeks of discharge. * Return to Emergency Room if symptoms persist, worsen, or new symptoms develop. * Continue taking DOXYCYCLINE 100 mg twice daily for 6 more week. * Repeat labs (CBC, Renal Panel, ESR) every month while you're on antibiotics. * Continue taking medications as prescribed below. Prescriptions/Referrals Prescriptions/Med Rec: New doxycycline hyclate 100 mg capsule 100 mg PO BID 42 Days Qty: 84 0RF Rx Instructions: Take 2 tablets daily for 6 week. Continued gabapentin 800 mg Tablet 800 mg PO TID insulin lispro [Humalog KwikPen Insulin] 100 unit/mL insulin pen 10 unit SUBCUT 3XD Patient Comments: INJECT 10 UNITS SUBCUTANEOUSLY 3 TIMES A DAY insulin degludec [Tresiba FlexTouch U-200] 200 unit/mL (3 mL) insulin pen 15 unit SUBCUT QDAY Qty: 9 2RF Patient Comments: INJECT 10 UNITS SUBCUTANEOUSLY AT BEDTIME montelukast 10 mg tablet 10 mg PO QDAY Patient Comments: TAKE 1 TABLET BY MOUTH EVERY DAY Discontinued clindamycin HCl 300 mg capsule 300 mg PO QID Patient Comments: TAKE 1 CAPSULE BY MOUTH FOUR TIMES A DAY sulfamethoxazole-trimethoprim 800-160 mg tablet 1 tab PO BID Patient Comments: TAKE 1 TABLET BY MOUTH TWICE A DAY Referrals: No Primary/Family,Physician [Primary Care Provider] - Outpatient Orders (i.e. Home Health, Labs, Imaging): CBC (Routine) Timeframe: 1 Month Location: Determined by Patient Ordered By: Dianna Mosley Sed Rate (ESR) (Routine) Timeframe: 1 Month Location: Determined by Patient Ordered By: Dianna Mosley Renal Function Panel (Routine) Timeframe: 1 Month Location: Determined by Patient Ordered By: Dianna Mosley Patient/Caregiver Discharge Instructions Print Language: [place] Timorese Stand Alone Forms: Sharron Award Info., Patient Portal Info Letter Discharge Order Discharge Orders: Discharge (Routine); Ordered 12/31/24 Ordered By: Dianna Mosley Quality Discharge Quality Measures VTE prophylaxis
--- NOTE | 2024-12-31 15:42 | PC.SS ---
rounding note: Patient to dc home today. No i.v. antibiotics needed.
[2024-12-31 16:00] VITALS: BP 151/86; PULSE 81; RESP 17; TEMP 36.1; O2SAT 97
--- NOTE | 2025-01-01 06:18 | ESCONSULT_ITS ---
RE: ROMEL REID : 1965 DATE OF CONSULTATION: 12/31/2024 REFERRING PHYSICIAN: Yuri Olson M.D. REASON FOR CONSULTATION: Osteomyelitis of the left middle toe with swelling, but on imaging, it looks like osteomyelitis noted of the first and second digits, which do not seem to be inflamed. Her sed rate is minimally elevated. She received a long course of IV antibiotics in July for the same sort of thing on x-ray. PICC line was placed for rx in July. Cultures are negative for 48 hours in the blood. The toe cultures show gram-positive cocci and gram- positive rods, BC are pending if they grow anything at all it may also becontaminants. It was done on the , so it may still be pending. Prior cultures are unrevealing. They are rather old. PAST MEDICAL HISTORY: Include hypothyroidism, hypertension, diabetes with A1c 9.2, but it fluctuates widely, and anxiety. PAST SURGICAL HISTORY: Includes the toe surgeries on the left in the past. She suggested that she has had toe amputations, but I do not see that noted. Nor do I see any missing toes overtly. Surgical history with one noted. ALLERGIES: SHE REPORTS AN ALLERGY TO NEOMYCIN AND POLYMYXIN B AND TRIPLE ANTIBIOTIC OINTMENT, WHICH IS COMMON. IMMUNIZATIONS: Last tetanus is unknown. She does not take flu shot every year. She has not had COVID vaccine and not had pneumococcal vaccination. FAMILY HISTORY: Unremarkable. SOCIAL HISTORY: She lives with others. She has no smoking, alcohol, or drug use history. PHYSICAL EXAMINATION: Exam is benign. The left second and middle toe is slightly inflamed but other areas are identified on xray the toes identified on imaging as being abnormal or not, but do not appear abnormal grossly. There are no active source or lesions. Neurologic exam was grossly normal. The patient has decreased sensation in her feet consistent with her diabetes. ASSESSMENTS: 1. Diabetic control, suboptimal. 2. Other problems as noted. 3. Possible osteomyelitis by imaging unverified by exam with prior treatment noted. RECOMMENDATIONS: The patient has had prior treatment so one of the definitions of crazy is giving the same thing over and over again, and expecting different results. So if we want to do something different, we should try long-term oral suppression unless the amputation of the inflamed digit is indicated. I will defer to others in that regard. Antibiotic penetration of the digits is not very good, so she will need to follow up with her outpatient primary on this. There is no need for seeing Infectious Disease. cc: Yuri Olson DT: 10:53:40 TT: 11:41:00 Ref: [id number] - TID: [id number] MTDD
== END 2024-12-31 16:30 | disposition home or self-care (01) | DRG 872 ==
LOC: SERX 15:39 → SERHOLD 18:15 → S3SX 20:24
PROVIDERS: Nurse Practitioner Family; Admitting Provider Student in an Organized Health Care Education/Training Program; Emergency Provider Emergency Medicine; Visit Provider Student in an Organized Health Care Education/Training Program
DX: A41.9 Sepsis, unspecified organism (principal); L02.612 Cutaneous abscess of left foot; L03.116 Cellulitis of left lower limb; M86.172 Other acute osteomyelitis, left ankle and foot; E87.1 Hypo-osmolality and hyponatremia; N17.9 Acute kidney failure, unspecified; E11.628 Type 2 diabetes mellitus with other skin complications; E11.69 Type 2 diabetes mellitus with other specified complication; E11.65 Type 2 diabetes mellitus with hyperglycemia; S91.339A Puncture wound without foreign body, unspecified foot, initial encounter; E11.42 Type 2 diabetes mellitus with diabetic polyneuropathy; J30.9 Allergic rhinitis, unspecified; I10 Essential (primary) hypertension; Z89.421 Acquired absence of other right toe(s); Z66 Do not resuscitate; Z79.4 Long term (current) use of insulin; W45.0XXA Nail entering through skin, initial encounter; Z79.899 Other long term (current) drug therapy
CPT/HCPCS: 36415; 73630; 80053; 80202; 81001; 83036; 83605; 83735; 84100; 84145; 85025; 85652; 86140; 87040; 87070; 87077; 87186; 87205; 96365; 96375; 99285; J1815; J2405; J2470; J2543; J3370; J7030; A9270

== ENCOUNTER 2025-02-01 20:21 | Emergency (ER) | payer MEDICARE, MEDICAID, SELFPAY ==
[2025-02-01 20:22] VITALS: BMI 26.5
[2025-02-01 20:32] VITALS: BP 122/68; PULSE 99; RESP 19; TEMP 37.7; O2SAT 97
--- NOTE | 2025-02-01 21:06 | XR_ITS ---
Examination: Foot, left, 3 views Technique: AP, oblique, lateral views foot, 3 views Date and time of exam: February 01, 2025 2108 hours INDICATIONS: Nonhealing wounds on the foot with pus and blood being discharged today. FINDINGS: Prominent bone destruction involving the mid and distal aspect proximal phalanx third digit and base of the middle phalanx third digit Cortical bone motion involving the shaft of the proximal phalanx second digit Soft tissue swelling involving the first through third digits with air density which may represent gas-forming organisms IMPRESSION: Extensive osteomyelitis including proximal phalanges second and third digits and middle phalanx third digit MRI foot without contrast follow up would best assess for extent of osteomyelitis
--- NOTE | 2025-02-01 21:07 | PD.EDRME ---
Rapid Medical Screening Exam [facility] Arrival date/time: 02/01/25 20:21 59F with history of DM presents to ED with open wound on L foot that popped today. Patient also has some fevers/chills, causing some N/V and SOB. Patient denies URI symptoms. Chief Complaint: Fever Vital signs: Vital Signs Temperature 99.8 F 02/01/25 20:32 Pulse Rate 99 02/01/25 20:32 Respiratory Rate 19 02/01/25 20:32 Blood Pressure 122/68 02/01/25 20:32 Pulse Oximetry (%) 97 02/01/25 20:32 Oxygen Delivery Method Room Air 02/01/25 20:32
[2025-02-01 22:22] LABS: Basophils # (Auto) 0.0 Thou/mm3 (0.0-0.2); Basophils % (Auto) 0 % (0-2.5); Eosinophils # (Auto) 0.0 Thou/mm3 (0.0-0.5); Eosinophils % (Auto) 0 % (0-10); Hematocrit 26.1 % (36.0-46.0); Hemoglobin 9.1 g/dL (12.0-16.0); Immature Granulocytes Auto 0.11 Thou/mm3 (0.00-0.00); Lymphocytes # (Auto) 0.8 Thou/mm3 (1.0-4.8); Lymphocytes % (Auto) 4 % (10-50); Mean Corpuscular HGB Conc 34.9 g/dl (31.0-37.0); Mean Corpuscular Hemoglobin 28.5 pg (25.0-35.0); Mean Corpuscular Volume 82 fL (80-100); Monocytes # (Auto) 1.0 Thou/mm3 (0.0-0.8); Monocytes % (Auto) 5 % (0-12); Neutrophils # (Auto) 17.5 Thou/mm3 (1.8-7.7); Neutrophils % (Auto) 90 % (37-80); Nucleated Red Blood Cell # 0.00 Thou/mm3 (0.00-0.00); Nucleated Red Blood Cell % 0 /100 WBC (0); Platelet Count 243 Thou/mm3 (140-440); RDW Standard Deviation 36.9 fL (36.4-46.3); Red Blood Count 3.19 Miln/mm3 (4.00-5.20); White Blood Count 19.4 Thou/mm3 (3.6-11.0)
[2025-02-01 22:37] LABS: Sed Rate (ESR) 40 mm/hr (0-30)
[2025-02-01 22:46] LABS: Alanine Aminotransferase 16 U/L (10-49); Albumin, Serum 4.2 gm/dL (3.5-5.0); Albumin/Globulin Ratio 1.6 (1.2-2.2); Alkaline Phosphatase 94 U/L (46-116); Anion Gap 7 (7-16); Aspartate Amino Transferase 18 U/L (0-34); BUN/Creatinine Ratio 12 Ratio (12-20); Bilirubin,Total 0.7 mg/dL (0.3-1.2); Blood Urea Nitrogen 13 mg/dL (9-23); Calcium 9.6 mg/dL (8.3-10.6); Calcium (Corrected) 9.6 mg/dL (8.5-10.1); Carbon Dioxide 27.4 mMol/L (20.0-31.0); Chloride 94 mMol/L (98-107); Creatinine (Component) 1.1 mg/dL (0.6-1.3); Estimated Creatinine Clearance 51.6 mL/min (>60); Globulin 2.6 gm/dL (2.3-3.5); Glucose 265 mg/dL (74-106); Osmolality,Calculated 266 (275-295); Potassium 3.6 mMol/L (3.4-5.1); Sodium 128 mMol/L (136-145); Total Protein 6.8 gm/dL (5.7-8.2); eGFR 58 See Note
[2025-02-01 23:46] LABS: C-Reactive Protein 22.2 mg/dL (0.0-0.9)
[2025-02-02 00:44] VITALS: BP 128/70; PULSE 97; RESP 18; TEMP 37.3; O2SAT 98
--- NOTE | 2025-02-02 04:55 | PC.NURSE ---
N/A FROM LOBBY OR OUTSIDE FOR RE-EVAL
== END 2025-02-02 05:57 | disposition left against medical advice (07) ==
LOC: SERX 21:14
PROVIDERS: Physician Assistant; Emergency Provider Emergency Medicine; PCP Family Medicine
DX: R50.9 Fever, unspecified (principal); R11.2 Nausea with vomiting, unspecified; R06.02 Shortness of breath; Z53.29 Procedure and treatment not carried out because of patient's decision for other reasons
CPT/HCPCS: 36415; 73630; 80053; 85025; 85652; 86140; 87400; 87811; 99283

== ENCOUNTER 2025-02-02 16:31 | Inpatient (IN) | payer MEDICARE, MEDICAID, SELFPAY ==
[2025-02-02] VITALS (7 sets, daily range): BP systolic 126–144; BP diastolic 66–79; PULSE 85–113; RESP 16–19; TEMP 37.2–38.7; O2SAT 97–98; BMI 26.5; BMI 28.0
--- NOTE | 2025-02-02 17:04 | EKG_ITS ---
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
--- NOTE | 2025-02-02 17:05 | XR_ITS ---
Examination: PA chest single view TECHNIQUE: Upright PA chest single view Date and time: February 02, 2025, 1710 hours INDICATIONS: Sepsis protocol. FINDINGS: Normal heart size No lobar pneumonia. The osseous structures are demineralized IMPRESSION: No lobar pneumonia
--- NOTE | 2025-02-02 17:06 | XR_ITS ---
Examination: Arterial duplex lower extremity study, unilateral left Date and time of exam: February 02, 2025, 1900 hours INDICATIONS: Left foot redness swelling and pain beginning 3 days ago Findings: Duplex sonographic imaging of the lower extremity arteries using B-mode/Guerrero scale imaging and Doppler spectral analysis and color flow. Left common femoral artery demonstrates triphasic flow. Left superficial femoral artery demonstrates biphasic flow. Left popliteal artery demonstrates biphasic flow. Left posterior tibial artery demonstrated biphasic flow. IMPRESSION: Peripheral obstructive arterial disease left lower extremity, consider correlation with CT abdomen aortoiliofemoral runoff follow-up
--- NOTE | 2025-02-02 17:10 | PD.EDWOUND ---
ED Wound/Laceration-RME/HPI General Chief Complaint: Wound/Laceration Stated Complaint: INFECTION LEFT FOOT Time Seen by Provider: 02/02/25 16:37 Arrival date/time: 02/02/25 16:31 RME / HPI RME / HPI narrative: 59-year-old female patient with significant history of diabetes mellitus, came in for evaluation regarding left foot pain and swelling. Patient been suffering from chronic ulcer to the left foot plantar aspect, currently not on any antibiotic, however last night patient noted redness to the third to. Patient woke up this morning with gangreneand blood blister noted on the second toe. Patient also complaining of swelling to the dorsal aspect of the foot with redness. Was also noted to be febrile. Patient came to the emergency room last night waited for 4 hours however the cannot wait and decided to go AMA. In the triage patient was noted to be febrile and tachycardic, sepsis alert was initiated right away. Related Data Home Medications ?Medication ?Instructions ?Recorded ?Confirmed gabapentin 800 mg tablet 800 mg PO TID 12/29/20 12/28/24 insulin lispro 100 unit/mL 10 unit subcut 3XD 07/24/24 12/28/24 subcutaneous pen (Humalog KwikPen (U-100) Insulin) montelukast 10 mg tablet 10 mg PO QDAY 12/28/24 12/28/24 Previous Rx's ?Medication ?Instructions ?Recorded insulin degludec 200 unit/mL (3 15 unit (0.075 mL) subcut QDAY #9 07/27/24 mL) subcutaneous pen (Tresiba mL FlexTouch U-200 insulin) doxycycline hyclate 100 mg capsule 100 mg PO BID 6 weeks #84 caps 12/31/24 Allergies Allergy/AdvReac Type Severity Reaction Status Date / Time animal dander Allergy Severe Swelling Verified 02/02/25 16:34 of Lip/Tongue/Throat bacitracin Allergy Severe Blister Verified 02/02/25 16:34 honey Allergy Severe Swelling Verified 02/02/25 16:34 of Lip/Tongue/Throat neomycin (From Neosporin Allergy Severe Blister Verified 02/02/25 16:34 ([id number])) polymyxin B (From Neosporin Allergy Severe Blister Verified 02/02/25 16:34 ([id number])) sucralose (From Splenda Allergy Severe Swelling Verified 02/02/25 16:34 (sucralose)) of Lip/Tongue/Throat insulin glargine (From Allergy Intermediate Redness of Verified 02/02/25 16:34 Lantus U-100 Insulin) Skin Artificial Sweetener Allergy Severe Swelling Uncoded 02/02/25 16:34 of Lip/Tongue/Throat Review of Systems Review of Systems Narrative Review of Systems: Review of system reviewed and within normal limits except mentioned in HPI ED Exam Narrative Physical exam: VITAL SIGNS: Reviewed. GENERAL APPEARANCE: Alert and interactive, follows commands, no acute distress, HEAD AND FACE: Non-traumatic. ENT: PERRL, pink conjunctivitis, eyelid no trauma, Mucous membrane moist. NECK: Supple, nontender, no nuchal rigidity. CHEST: No tenderness, no crepitus, no paradoxical movement, no retractions. LUNGS: Clear, well ventilated, symmetric, no rales, no wheezing, no ronchi, no stridor, good breath sounds bilaterally. HEART: Regular rate, regular rhythm, no murmur, no gallops. ABDOMEN: Soft, positive bowel sounds, nondistended, no guarding, nontender, no rebound, no masses, RECTAL: Deferred. GENITAL: Deferred. NEUROLOGICAL: Gross motor function intact sensory function intact, Appropriate for age. MUSCULOSKELETAL: low back nontender, full range of motion. EXTREMITIES: Swelling left foot, gangrenesecond 2, with blood blister noted on the proximal aspect of the with tenderness, swelling and redness, full range of motion. SKIN: Color pink, dry, no rash, no lacerations, no abrasions, no contusions. LYMPHATICS: Deferred. Course Quality Measures none Orders Category Date Time Status COVID-19 Screening Questionnaire NOW Care 02/02/25 19:29 Active Tool Keeper STAT Care 02/02/25 17:04 Active Continuous Pulse Oximetry STAT Care 02/02/25 17:04 Active Decision to Admit X1 Care 02/02/25 19:28 Active EKG (ED ONLY) *Do not use* NOW Care 02/02/25 17:04 Completed In and Out Catheter X1PRN Care 02/02/25 17:04 Active Insert IV NOW Care 02/02/25 17:04 Active NPO STAT Care 02/02/25 17:04 Active Strict Intake and Output Routine Care 02/02/25 17:04 Ordered Consult to General Surgery Stat Cons 02/02/25 18:32 Ordered EKG (ED Only) Stat Exams 02/02/25 17:04 Draft US arterial duplex LE LT Stat Exams 02/02/25 17:06 Taken XR chest 1V SEPSIS PROTOCOL Stat Exams 02/02/25 17:05 Completed B-Type Natriuretic Peptide Stat Lab 02/02/25 17:25 Completed Blood Culture (Lab) Stat Lab 02/02/25 17:25 Received CBC Stat Lab 02/02/25 17:25 Completed Comprehensive Metabolic Panel Stat Lab 02/02/25 17:25 Completed LDH (Lactate Dehydrogenase) Stat Lab 02/02/25 17:25 Completed Lactate (Lactic Acid) Stat Lab 02/02/25 17:25 Results Lipase Stat Lab 02/02/25 17:25 Completed Magnesium Stat Lab 02/02/25 17:25 Completed Partial Thromboplastin Time Stat Lab 02/02/25 17:25 Completed Phosphorous Stat Lab 02/02/25 17:25 Completed Procalcitonin Stat Lab 02/02/25 17:25 Completed Prothrombin Time with INR Stat Lab 02/02/25 17:25 Completed Troponin I Stat Lab 02/02/25 17:25 Completed Urinalysis Stat Lab 02/02/25 17:34 Completed Urine Culture Stat Lab 02/02/25 17:34 Received Acetaminophen Tab [Tylenol ES Tab] Med 02/02/25 17:09 Discontinued 1,000 mg PO X1 ONE Insulin Regular Med 02/02/25 19:28 Discontinued 6.8 unit IV X1 ONE Piper/Tazo 3.375 gm Premix [Zosyn] Med 02/02/25 17:09 Discontinued 3.375 gm in 50 ml IV X1 Potassium Chloride [K-Dur] Med 02/02/25 18:32 Discontinued 40 meq PO X1 ONE Sodium Chloride 0.9% 1000 ml [Ns] 1,000 ml Med 02/02/25 17:10 Discontinued IV 999 mls/hr Sodium Chloride 0.9% 1000 ml [Ns] 1,000 ml Med 02/02/25 18:34 Discontinued IV 999 mls/hr Vancomycin Inj 1,000 mg Med 02/02/25 17:09 Discontinued Sodium Chloride 0.9% 250 ml [Ns] 250 ml IV X1 Vancomycin/Water 1Gm Ivpb 200 ml Med 02/02/25 17:15 Discontinued IV X1 Oxygen Delivery NOW RT 02/02/25 17:04 Active Vital Signs Vital signs: Vital Signs Temperature 99.5 F 02/02/25 16:39 Pulse Rate 105 H 02/02/25 16:39 Respiratory Rate 19 02/02/25 16:39 Blood Pressure 137/73 H 02/02/25 16:39 Pulse Oximetry (%) 97 02/02/25 16:39 Oxygen Delivery Method Room Air 02/02/25 16:39 Wound / Laceration [facility] Narrative MDM Narrative:: 59-year-old female patient with significant history of diabetes mellitus, came in for evaluation regarding left foot pain and swelling. Patient been suffering from chronic ulcer to the left foot plantar aspect, currently not on any antibiotic, however last night patient noted redness to the third to. Patient woke up this morning with gangreneand blood blister noted on the second toe. Patient also complaining of swelling to the dorsal aspect of the foot with redness. Was also noted to be febrile. Patient came to the emergency room last night waited for 4 hours however the cannot wait and decided to go AMA. In the triage patient was noted to be febrile and tachycardic, sepsis alert was initiated right away. EKG showed sinus tachycardia, ventricular rate of 103 bpm, no ST segment elevation or depression noted. CBC shows significant leukocytosis of 18.4, hemoglobin 9.0 hematocrit 29 sodium 122 chloride 88 creatinine 1.5. Patient's blood sugar was also noted to be 596. Lactic acid 2.9. Patient received 2 L of IV fluids, regular insulin 6.8 Tylenol Zosyn and vancomycin. Patient was also given potassium p.o. Case discussed with hospitalist and admitted the patient. Patient data External records reviewed:: None Clinical information provided by:: patient and family Social determinants that could affect healthcare access:: none Patient has the following chronic illnesses:: Diabetes mellitus How is presenting disease/condition affected by chronic disease/condition?: caused by Evaluation data The following diagnostics were reviewed and interpreted by me:: lab results, radiology exam(s) and EKG tracing(s) Lab and/or radiology exams considered but not ordered:: None Interpretation Summary: See results MDM Medications / Prescriptions Medications or Prescriptions considered but not ordered:: none Medication administrations:: Medication Administration History Discontinued Medications Acetaminophen (Acetaminophen 500 Mg Tablet) 1,000 mg PO X1 ONE Stop: 02/02/25 17:10 Last Admin: 02/02/25 18:42 Dose: 1,000 mg Documented By: CG Vancomycin HCl 1,000 mg/ (Sodium Chloride) 250 mls @ 150 mls/hr IV X1 ONE Stop: 02/02/25 18:48 Last Admin: 02/02/25 18:44 Dose: Not Given Documented By: CG Non-Admin Reason: Cancelled by Provider Piperacillin/Tazobactam/Dextrose (Zosyn) 3.375 gm in 50 mls @ 100 mls/hr IV X1 ONE Stop: 02/02/25 17:38 Last Infusion: 02/02/25 19:13 Dose: Infused Documented By: Admin: 02/02/25 18:42 Dose: 100 mls/hr Documented By: CG Sodium Chloride (Ns) 1,000 mls @ 999 mls/hr IV .Q1H1M ONE Stop: 02/02/25 18:10 Last Admin: 02/02/25 18:43 Dose: 999 mls/hr Documented By: CG Vancomycin HCl (Vancomycin/Water 1gm Ivpb) 200 mls @ 120 mls/hr IV X1 ONE; Protocol Stop: 02/02/25 18:54 Last Admin: 02/02/25 19:13 Dose: 120 mls/hr Documented By: CG Sodium Chloride (Ns) 1,000 mls @ 999 mls/hr IV .Q1H1M ONE Stop: 02/02/25 19:34 Insulin Human Regular (Insulin Hum Regular 1 Unit/0.01 Ml (Per Unit)) 6.8 unit 0.1 unit/kg (6.8 unit) IV X1 ONE Stop: 02/02/25 19:29 Potassium Chloride (Potassium Chloride 20 Meq Tabcr) 40 meq PO X1 ONE Stop: 02/02/25 18:33 Last Admin: 02/02/25 18:53 Dose: 40 meq Documented By: CG See MDM Consultations Consultation(s) initiated? (list below): Yes Consultation #1 (Physician, Specialty, Details): Spoke with general surgeon on-call, Dr. Espinal will see the patient also in the floor. Thank you Diagnosis Wound Differential Diagnosis: abscess and other (Diabetic foot infection, sepsis, hyperglycemia) Most likely diagnosis given after review of the tests above:: Diabetic foot infection, sepsis Admission Indicated Admission indicated?: indicated Admission Request Was there a request for admission?: Yes Admission Attestation Admission request attestation: Discussed case with [] from Hospitalist service regarding admission. Discussed patients ED course, exam findings, labs, and radiology results. The Hospitalist [agrees,declines] to accept the patient for admission. Disposition Plan Disposition Plan: Admit Discharge Plan Plan Patient Disposition: Admit Acute Care w/in Hospital Discharge Disposition comment: Stable Prescriptions/Referrals Prescriptions/Med Rec: No Action gabapentin 800 mg Tablet 800 mg PO TID insulin lispro [Humalog KwikPen Insulin] 100 unit/mL insulin pen 10 unit SUBCUT 3XD Patient Comments: INJECT 10 UNITS SUBCUTANEOUSLY 3 TIMES A DAY insulin degludec [Tresiba FlexTouch U-200] 200 unit/mL (3 mL) insulin pen 15 unit SUBCUT QDAY Qty: 9 2RF Patient Comments: INJECT 10 UNITS SUBCUTANEOUSLY AT BEDTIME montelukast 10 mg tablet 10 mg PO QDAY Patient Comments: TAKE 1 TABLET BY MOUTH EVERY DAY doxycycline hyclate 100 mg capsule 100 mg PO BID 42 Days Qty: 84 0RF Rx Instructions: Take 2 tablets daily for 6 week. Referrals: No Primary/Family,Physician [Primary Care Provider] - In 1 week Problem List Clinical Impression: Diabetic foot infection Patient/Caregiver Discharge Instructions Print Language: Mongolian Stand Alone Forms: Sharron Award Info., Patient Portal Info Letter
[2025-02-02 17:37] LABS: Lactate (Lactic Acid) 2.9 mMol/L (0.4-2.0)
[2025-02-02 17:42] LABS: Basophils # (Auto) 0.0 Thou/mm3 (0.0-0.2); Basophils % (Auto) 0 % (0-2.5); Eosinophils # (Auto) 0.1 Thou/mm3 (0.0-0.5); Eosinophils % (Auto) 0 % (0-10); Hematocrit 27.0 % (36.0-46.0); Hemoglobin 9.0 g/dL (12.0-16.0); Immature Granulocytes Auto 0.11 Thou/mm3 (0.00-0.00); Lymphocytes # (Auto) 0.9 Thou/mm3 (1.0-4.8); Lymphocytes % (Auto) 5 % (10-50); Mean Corpuscular HGB Conc 33.3 g/dl (31.0-37.0); Mean Corpuscular Hemoglobin 27.4 pg (25.0-35.0); Mean Corpuscular Volume 82 fL (80-100); Monocytes # (Auto) 0.9 Thou/mm3 (0.0-0.8); Monocytes % (Auto) 5 % (0-12); Neutrophils # (Auto) 16.3 Thou/mm3 (1.8-7.7); Neutrophils % (Auto) 89 % (37-80); Nucleated Red Blood Cell # 0.00 Thou/mm3 (0.00-0.00); Nucleated Red Blood Cell % 0 /100 WBC (0); Platelet Count 226 Thou/mm3 (140-440); RDW Standard Deviation 37.1 fL (36.4-46.3); Red Blood Count 3.29 Miln/mm3 (4.00-5.20); White Blood Count 18.4 Thou/mm3 (3.6-11.0)
[2025-02-02 17:46] LABS: Collection Type, Urine Clean Catch
[2025-02-02 17:55] LABS: INR 1.1 (0.9-1.3); Partial Thromboplastin Time 32.5 Seconds (22.0-36.0); Prothrombin Time 11.5 Seconds (9.0-12.2)
[2025-02-02 17:59] LABS: Bilirubin,Urine Negative (Negative); Blood,Urine 1+ (Negative); Clarity,Urine Clear (Clear/Hazy); Color,Urine Lt-Yellow (Lt Yel-Yel); Glucose, Urine 4+ (Negative); Ketones,Urine Negative (Negative); Leukocyte Esterase,Urine Negative (Negative); Nitrite,Urine Negative (Negative); PH,Urine 6.0 (5.0-7.0); Protein,Urine Trace (Neg - Trace); RBC,Urine 3 /hpf (0-3); Specific Gravity,Urine 1.019 (1.001-1.035); Squamous Epithelial Cell,Urine 3 /hpf (0-5); Urobilinogen,Urine Negative mg/dL (0.0-1.0); WBC,Urine 1 /hpf (0-5)
[2025-02-02 18:00] LABS: B-Type Natriuretic Peptide 49 pg/mL (0-100)
[2025-02-02 18:22] LABS: Alanine Aminotransferase 17 U/L (10-49); Albumin, Serum 4.0 gm/dL (3.5-5.0); Albumin/Globulin Ratio 1.6 (1.2-2.2); Alkaline Phosphatase 80 U/L (46-116); Anion Gap 9 (7-16); Aspartate Amino Transferase 19 U/L (0-34); BUN/Creatinine Ratio 9 Ratio (12-20); Bilirubin,Total 0.5 mg/dL (0.3-1.2); Blood Urea Nitrogen 13 mg/dL (9-23); Calcium 8.6 mg/dL (8.3-10.6); Calcium (Corrected) 8.6 mg/dL (8.5-10.1); Carbon Dioxide 24.7 mMol/L (20.0-31.0); Chloride 88 mMol/L (98-107); Creatinine (Component) 1.5 mg/dL (0.6-1.3); Estimated Creatinine Clearance 37.9 mL/min (>60); Globulin 2.5 gm/dL (2.3-3.5); LDH (Lactate Dehydrogenase) 278 U/L (120-246); Lipase 29 U/L (12-53); Magnesium 1.0 mg/dL (1.6-2.6); Osmolality,Calculated 274 (275-295); Phosphorous 1.7 mg/dL (2.4-5.1); Potassium 3.8 mMol/L (3.4-5.1); Procalcitonin 0.37 ng/ml (0.0-0.49); Sodium 122 mMol/L (136-145); Total Protein 6.5 gm/dL (5.7-8.2); Troponin I < 0.020 ng/mL (0.0-0.045); eGFR 40 See Note
[2025-02-02 18:24] LABS: Glucose 596 mg/dL (74-106)
[2025-02-02] MEDS: PIPER/TAZO 3.375 GM PREMIX 3.375 GM/50 ML BAG IV (18:42)
[2025-02-02] MEDS: ACETAMINOPHEN 500 MG TABLET 1000 MG PO (18:42)
[2025-02-02] MEDS: SODIUM CHLORIDE 0.9% 1000 ML 1,000 ML 999 ML IV ×2 (18:43→20:00)
[2025-02-02] MEDS: VANCOMYCIN/WATER 1GM IVPB 200 ML IV (19:13)
[2025-02-02 20:33] LABS: Reflex Lactate? Y
[2025-02-02] MEDS: INSULIN HUM REGULAR 1 UNIT/0.01 ML (PER UNIT) 6.8 UNIT IV (20:53)
[2025-02-02 20:54] LABS: Lactic Acid, 3 HR 0.9 mMol/L (0.4-2.0)
--- NOTE | 2025-02-02 21:49 | PD.RESHP ---
Documentation for date of: 02/02/25 HPI History of Present Illness Chief complaint: Left second toe swelling, bloody blister History of present illness: 59-year-old female with PMHx significant for insulin-dependent diabetes with polyneuropathy, brain tumor s/p resection, seizure not on current treatment presented to ED with chief complaints of left foot swelling and pain concentrated around second toe, with significant blood-filled blister. Patient reports for several days she has noticed increased swelling and pain of her left foot. Specifically the left third toe has become erythematous and swollen, the second toe has a large tender bloody blister, tip of the toe is pale. Patient has signs of erythema, tenderness, swelling up to ankle of left foot. Dr. Espinal is on board. Patient reports fever that resolved with Tylenol, denies nausea, vomiting, chills, chest pain, shortness of breath. ED COURSE: Labs significant for: WBC 18.4, creatinine 1.5 greater than baseline, EGFR 40. Glucose 596. Lactic acid 2.9, CRP 22.2, ESR 40, Pro-Sony negative. Phosphorus 1.7, magnesium 1.0. Imaging significant for: Foot x-ray showed extensive osteomyelitis of the 2nd and 3rd digits. Patient received vancomycin and Zosyn in the ED. 1 L bolus normal saline. 6.8 units regular insulin given for hyperglycemia. PMH: Brain tumor, seizures, diabetes with polyneuropathy PSH: , brain tumor resection SH: Denies alcohol or illicit drug use. [id number] smoking history. Allergies: Lantus, bacitracin, honey, neomycin, sucralose Medications: Tresiba 10 units daily, Humalog sliding scale, Ange, gabapentin 800 3 times daily, amlodipine 10 mg daily, singular twice daily. Review of Systems Review of Systems Systems Reviewed: All systems reviewed, normal except as documented Past Medical History Past Medical History Comments PMH COMMENT: PMH: Brain tumor, seizures, diabetes with polyneuropathy PSH: , brain tumor resection SH: Denies alcohol or illicit drug use. [id number] smoking history. Allergies: Lantus, bacitracin, honey, neomycin, sucralose Medications: Tresiba 10 units daily, Humalog sliding scale, Ange, gabapentin 800 3 times daily, amlodipine 10 mg daily, singular twice daily. Exam Vital Signs Temp Pulse Resp BP Pulse Ox O2 Del Method 99 F 85 16 126/66 98 Room Air 02/02/25 21:00 02/02/25 21:00 02/02/25 21:00 02/02/25 21:00 02/02/25 21:00 02/02/25 21:00 Narrative Exam PE: Gen: Well-developed and well-nourished. HEENT: NCAT, PERRLA, EOMI, MMM, anicteric conjunctivae. CVS: normal S1 and S2. RRR. No M/R/G. Resp: CTA B/L. No rhonchi, rales, crackles or wheezing. Abd: soft, non-tender, non-distended. BS+ in all 4 quadrants. MSK: Good ROM in BUE & BLE. No edema or rash. Erythema, swelling, tenderness of left foot up to ankle. Left third toe significant swelling, erythema, tenderness. Left second toe with bloody blister, paleness at tip of toe. Neuro: CN II-XII grossly intact. Strength 5/5 in BUE & BLE. Alert and oriented x3. Psych: appropriate mood and affect. Results: Labs 02/02/25 17:25 02/02/25 17:25 Labs: Short CBC 02/02/25 Range/Units 17:25 WBC 18.4 H (3.6-11.0) Thou/mm3 Hgb 9.0 L (12.0-16.0) g/dL Hct 27.0 L (36.0-46.0) % Plt Count 226 (140-440) Thou/mm3 BMP 02/02/25 17:25 Sodium 122 L Potassium 3.8 Chloride 88 L Carbon Dioxide 24.7 BUN 13 Creatinine 1.5 H Glucose 596 H* D Calcium 8.6 Cardiac Enzymes 02/02/25 Range/Units 17:25 Troponin I < 0.020 (0.0-0.045) ng/mL Liver Function 02/02/25 Range/Units 17:25 Total Bilirubin 0.5 (0.3-1.2) mg/dL AST 19 (0-34) U/L ALT 17 (10-49) U/L Alkaline Phosphatase 80 (46-116) U/L Albumin 4.0 (3.5-5.0) gm/dL Urine 02/02/25 Range/Units 17:34 Urine Color Lt-Yellow (Lt Yel-Yel) Urine Clarity Clear (Clear/Hazy) Urine pH 6.0 (5.0-7.0) Ur Specific [place] 1.019 (1.001-1.035) Urine Protein Trace (Neg - Trace) Urine Glucose (UA) 4+ A (Negative) Quality Measures Quality Measures VTE prophylaxis Medications Home Medications and Allergies Home Medications ?Medication ?Instructions ?Recorded ?Confirmed ?Type gabapentin 800 mg tablet 800 mg PO TID 12/29/20 02/02/25 History insulin lispro 100 unit/mL 10 unit subcut 3XD 07/24/24 02/02/25 History subcutaneous pen (Humalog KwikPen (U-100) Insulin) montelukast 10 mg tablet 10 mg PO QDAY 12/28/24 02/02/25 History Allergies Allergy/AdvReac Type Severity Reaction Status Date / Time animal dander Allergy Severe Swelling Verified 02/02/25 16:34 of Lip/Tongue/Throat bacitracin Allergy Severe Blister Verified 02/02/25 16:34 honey Allergy Severe Swelling Verified 02/02/25 16:34 of Lip/Tongue/Throat neomycin (From Neosporin Allergy Severe Blister Verified 02/02/25 16:34 ([id number])) polymyxin B (From Neosporin Allergy Severe Blister Verified 02/02/25 16:34 ([id number])) sucralose (From Splenda Allergy Severe Swelling Verified 02/02/25 16:34 (sucralose)) of Lip/Tongue/Throat insulin glargine (From Allergy Intermediate Redness of Verified 02/02/25 16:34 Lantus U-100 Insulin) Skin Artificial Sweetener Allergy Severe Swelling Uncoded 02/02/25 16:34 of Lip/Tongue/Throat Visit Medications Acetaminophen (Acetaminophen 325 Mg Tablet) 650 mg PO Q6H PRN PRN Reason: Fever >100.4 or pain Stop: 03/04/25 20:53 Hydrocodone Bitart/Acetaminophen (Hydrocodone/Apap 5/325 Tablet) 1 tab PO Q4HR PRN PRN Reason: PAIN SCALE 4-10(Mod-Sev Stop: 02/07/25 20:53 Dextrose (Dextrose 50%-Water Inj 50 Ml Syringe) 25 ml IV Q15MIN PRN PRN Reason: BG 50-70 responsive npo pt Stop: 03/04/25 20:53 Dextrose (Dextrose 50%-Water Inj 50 Ml Syringe) 50 ml IV Q15MIN PRN PRN Reason: BG <50 OR BG <70 & pt unresponsive Stop: 03/04/25 20:53 Docusate Sodium (Docusate Sod 100 Mg Capsule) 100 mg PO QDAY PRN; Protocol PRN Reason: CONSTIPATION Stop: 03/04/25 20:53 Gabapentin (Gabapentin 100 Mg Capsule) 800 mg PO TID JASVIR Stop: 03/04/25 21:59 Glucagon (Glucagon Inj 1 Mg Vial) 1 mg IM Q15MIN PRN PRN Reason: BG <70, and no IV access Magnesium Sulfate (Magnesium Sulfate Ivpb) 4 gm in 50 mls @ 12.5 mls/hr IV X1 ONE Stop: 02/03/25 00:57 Lactated Ringer's (Lactated Ringers) 1,000 mls @ 999 mls/hr IV .Q1H1M ONE Stop: 02/02/25 22:04 Insulin Human Lispro (Insulin Lispro (Admelog) 1 Unit/0.01 Ml Unit) 0 unit SC AC [facility]; Protocol Stop: 03/05/25 07:29 Non-Formulary Medication (Insulin Degludec [Tresiba Flextouch U-200]) 10 unit SC QDAY [facility] Stop: 03/05/25 08:59 Ondansetron HCl (Ondansetron Inj 2 Mg/Ml Inj 2 Ml) 4 mg IVP Q6H PRN; Protocol PRN Reason: NAUSEA OR VOMITING Stop: 03/04/25 20:53 Sennosides (Senna Tablet) 1 tab PO QDAY PRN; Protocol PRN Reason: constipation Stop: 03/04/25 20:53 Discontinued Medications Acetaminophen (Acetaminophen 500 Mg Tablet) 1,000 mg PO X1 ONE Stop: 02/02/25 17:10 Last Admin: 02/02/25 18:42 Dose: 1,000 mg Vancomycin HCl 1,000 mg/ (Sodium Chloride) 250 mls @ 150 mls/hr IV X1 ONE Stop: 02/02/25 18:48 Last Admin: 02/02/25 18:44 Dose: Not Given Piperacillin/Tazobactam/Dextrose (Zosyn) 3.375 gm in 50 mls @ 100 mls/hr IV X1 ONE Stop: 02/02/25 17:38 Last Infusion: 02/02/25 19:13 Dose: Infused Sodium Chloride (Ns) 1,000 mls @ 999 mls/hr IV .Q1H1M ONE Stop: 02/02/25 18:10 Last Infusion: 02/02/25 19:44 Dose: Infused Vancomycin HCl (Vancomycin/Water 1gm Ivpb) 200 mls @ 120 mls/hr IV X1 ONE; Protocol Stop: 02/02/25 18:54 Last Infusion: 02/02/25 20:54 Dose: Infused Sodium Chloride (Ns) 1,000 mls @ 999 mls/hr IV .Q1H1M ONE Stop: 02/02/25 19:34 Last Infusion: 02/02/25 21:02 Dose: Infused Insulin Human Regular (Insulin Hum Regular 1 Unit/0.01 Ml (Per Unit)) 6.8 unit 0.1 unit/kg (6.8 unit) IV X1 ONE Stop: 02/02/25 19:29 Last Admin: 02/02/25 20:53 Dose: 6.8 unit Potassium Chloride (Potassium Chloride 20 Meq Tabcr) 40 meq PO X1 ONE Stop: 02/02/25 18:33 Last Admin: 02/02/25 18:53 Dose: 40 meq Potassium Phos/Sodium Phos (Naph,Counts Include [facility] Mbdb 1 Packet (1.5 Gm)) 1 packet PO X1 ONE Stop: 02/02/25 20:55 Assessment & Plan Plan 59-year-old female with PMHx significant for insulin-dependent diabetes with polyneuropathy, brain tumor s/p resection, seizure not on current treatment presented to ED with chief complaints of left foot swelling and pain concentrated around second toe, with significant blood-filled blister, admitted for osteomyelitis. #Sepsis 2/2 Osteomyelitis #Osteomyelitis of 2nd and 3rd digits of left foot Patient SIRS positive with tachycardia, fever one 1.7. However is nonseptic, sofa score 1. Osteomyelitis seen on x-ray imaging, ESR 40, CRP 22.2, lactic acid 2.9. Pro-Sony negative. Patient complains of erythema, swelling, tenderness of left foot around 2nd and 3rd digits. Dr. Espinal consulted. Patient received vancomycin and Zosyn in the ED, along with 1 L bolus normal saline. An additional liter bolus lactated Ringer's given. Patient complained of fevers that resolved with Tylenol. - Given 3L on IVF bolus at ED - Vancomycin pharmacy dosing (started 02/02) - Zosyn 3.375 g every 6 hours (started 02/02) - General Surgery consulted, appreciate recommendations - N.p.o. after midnight - Monitor for signs of sepsis #Insulin-dependent diabetes with polyneuropathy- Poorly controlled. #Hyperglycemia Patient has history of diabetes, takes 10 units Tresiba daily, with Humalog sliding scale. Allergy to Lantus. Glucose appeared significantly elevated in ED, 596. Received 6 point units regular insulin. - ISS step two - Resume home Tresiba at 10 units daily - Resume home gabapentin 800 3 times daily for polyneuropathy - Every 6 hours glucose checks due to n.p.o. #MATTY, likely prerenal Patient developed MATTY, creatinine increased from 1.1-1.5, EGFR is 40. Received 1 L bolus normal saline, 1 L bolus lactated Ringer's. Suspect prerenal in setting of acute infection. - Avoid nephrotoxic medications - Renally dose meds as necessary - Monitor daily labs - Ensure adequate hydration #Hypophosphatemia #Hypomagnesemia #Pseudohyponatremia Patient phosphorus 1.7, magnesium 1.0. - 1 Neutra-Phos packet - Magnesium 4 g IV x 1 - Continue to monitor, replete as needed #History of seizure, following brain tumor resection Patient reports she had at least 1 seizure following a resection of a brain tumor. She takes no medications and has been asymptomatic since then. - Seizure precautions #Chronic normocytic anemia #PAD Continue follow-up with PCP to obtain referral for vascular surgery. Patient will need further workup. DVT prophylaxis: Heparin SC BID GI prophylaxis: None Diet: Carb consistent diet, n.p.o. after midnight Lines: Peripheral IV Code status: Full code Plan of care discussed with attending Dr. Yeung. Joe Eldridge MD PGY-2 Attending Provider Attestation/Addendum Attending Provider Attestation/Addendum After examination of the patient and review of the clinical data I feel that this patient needs admission to the hospital for further treatment/evaluation. I Nighat Yeung MD, attest that I was physically present for uribe portions of evaluation, and examined patient, labs and imaging of patient were reviewed with residents and a plan of care was discussed with IM team. I agree with the findings and plans documented above.
[2025-02-02] MEDS: Magnesium Sulfate 4 GM Ivpb 4 GM/50 ML BAG IV (22:01)
[2025-02-02] MEDS: RINGERS LACTATED 1000 ML 1,000 ML 999 ML IV (22:02)
--- NOTE | 2025-02-02 22:17 | PC.NURSE ---
Report called to roshni RN, BARBARA Angel at this time
[2025-02-02] MEDS: GABAPENTIN 100 MG CAPSULE 800 MG PO (22:56)
[2025-02-02] MEDS: NAPH,KPH MBDB 1 PACKET (1.5 GM) PO (22:56)
[2025-02-02] MEDS: ACETAMINOPHEN 325 MG TABLET 650 MG PO (22:56)
[2025-02-03] VITALS (12 sets, daily range): BP systolic 110–132; BP diastolic 63–90; PULSE 75–100; RESP 15–97; TEMP 36.2–36.8; O2SAT 95–99
[2025-02-03] MEDS: PIPER/TAZO 3.375 GM PREMIX 3.375 GM/50 ML BAG IV ×3 (05:30→21:17)
[2025-02-03 05:56] LABS: Basophils # (Auto) 0.1 Thou/mm3 (0.0-0.2); Basophils % (Auto) 0 % (0-2.5); Eosinophils # (Auto) 0.1 Thou/mm3 (0.0-0.5); Eosinophils % (Auto) 1 % (0-10); Hematocrit 23.4 % (36.0-46.0); Immature Granulocytes Auto 0.09 Thou/mm3 (0.00-0.00); Lymphocytes # (Auto) 0.9 Thou/mm3 (1.0-4.8); Lymphocytes % (Auto) 6 % (10-50); Mean Corpuscular HGB Conc 34.6 g/dl (31.0-37.0); Mean Corpuscular Hemoglobin 28.3 pg (25.0-35.0); Mean Corpuscular Volume 82 fL (80-100); Monocytes # (Auto) 0.7 Thou/mm3 (0.0-0.8); Monocytes % (Auto) 5 % (0-12); Neutrophils # (Auto) 13.2 Thou/mm3 (1.8-7.7); Neutrophils % (Auto) 88 % (37-80); Nucleated Red Blood Cell # 0.00 Thou/mm3 (0.00-0.00); Nucleated Red Blood Cell % 0 /100 WBC (0); Platelet Count 241 Thou/mm3 (140-440); RDW Standard Deviation 37.1 fL (36.4-46.3); Red Blood Count 2.86 Miln/mm3 (4.00-5.20); White Blood Count 15.0 Thou/mm3 (3.6-11.0)
--- NOTE | 2025-02-03 05:56 | PC.NURSE ---
dr lebron notified of antonina bs [id number], PT NPO and states she is sensitive to insulin and even if prescribed, she does not want the insulin until she has a diet. No new orders at this time.
[2025-02-03 06:00] LABS: Hemoglobin 8.1 g/dL (12.0-16.0)
[2025-02-03 06:05] LABS: INR 1.1 (0.9-1.3); Partial Thromboplastin Time 35.6 Seconds (22.0-36.0); Prothrombin Time 11.5 Seconds (9.0-12.2)
[2025-02-03 06:21] LABS: Alanine Aminotransferase 14 U/L (10-49); Albumin, Serum 3.4 gm/dL (3.5-5.0); Albumin/Globulin Ratio 1.6 (1.2-2.2); Alkaline Phosphatase 73 U/L (46-116); Anion Gap 10 (7-16); Aspartate Amino Transferase 16 U/L (0-34); BUN/Creatinine Ratio 10 Ratio (12-20); Bilirubin,Total 0.5 mg/dL (0.3-1.2); Blood Urea Nitrogen 11 mg/dL (9-23); Calcium 8.3 mg/dL (8.3-10.6); Calcium (Corrected) 8.8 mg/dL (8.5-10.1); Carbon Dioxide 24.9 mMol/L (20.0-31.0); Chloride 97 mMol/L (98-107); Creatinine (Component) 1.1 mg/dL (0.6-1.3); Estimated Creatinine Clearance 53.0 mL/min (>60); Globulin 2.1 gm/dL (2.3-3.5); Glucose 273 mg/dL (74-106); Magnesium 2.2 mg/dL (1.6-2.6); Osmolality,Calculated 273 (275-295); Phosphorous 1.5 mg/dL (2.4-5.1); Potassium 4.0 mMol/L (3.4-5.1); Sodium 132 mMol/L (136-145); Total Protein 5.5 gm/dL (5.7-8.2); eGFR 58 See Note
[2025-02-03] MEDS: ACETAMINOPHEN 325 MG TABLET 650 MG PO (07:33)
[2025-02-03] MEDS: VANCOMYCIN/NS 750 MG IVPB 750 MG/150 ML BAG 120 MG IV ×2 (10:21→21:17)
--- NOTE | 2025-02-03 10:35 | PC.SS ---
Carline Villa is a 59-year-old female admitted to Med Surg for Osteomyelitis. SS conducted bedside contact with the patient to complete initial assessment and to discuss discharge planning. Role and reason explained. Patient confirmed demographic information. Patient identifies her Son Shavonne Villa [phone] and Tahir Ta [phone] as her surrogate decision maker. Pt states she lives with family and is able to complete most ADL?s independently. Pt is aligned with [employer]. Pt has a wheelchair at home. Pts PCP is at [facility] [place] (Dr. Jesus) last visit 1 month ago. Pharmacy of choice is [facility]. Discharge options discussed and the pt wishes to return home. Family will provide transportation upon DC. No further intervention required at this time, social services specialist would be available to address any further concerns. DC Plan: Home Contact: Riki Jolley/Tahir Address: Confirmed on face sheet PCP: Ann Marie
[2025-02-03] MEDS: MORPHINE SULF INJ 10 MG/ML VIAL 4 MG IVP (11:59)
--- NOTE | 2025-02-03 12:46 | PD.SURCONS ---
HPI Consult details History of present illness: 59F with DMII on insulin with neuropathy, treated for osteomyelitis of the left second toe in July 2024 and again in December 2024, presenting with left foot swelling and pain. Patient reports the pain worsened yesterday prompting her to seek care in ER, she underwent foot x-ray showing extensive osteomyelitis of the 2nd and 3rd toes Patient states for the last few days her blood sugars were 400+ at home, she was feeling malaise and having anorexia. Today her blood sugars have been in the high 200s PMH: DMII, seizures, brain tumor PSH: Crnniotomy with resection of brain tumor, Csection, I&D of left foot abscess, amputation of R 2nd toe Meds: No antiplatelet or anticoagulation Allergies: Lantus, bacitracin, honey, neomycin, sucralose Review of Systems Review of Systems ROS Unobtainable: All systems reviewed & no additional complaints except as documented Meds Home Medications and Allergies Home Medications ?Medication ?Instructions ?Recorded ?Confirmed ?Type gabapentin 800 mg tablet 800 mg PO TID 12/29/20 02/02/25 History insulin lispro 100 unit/mL 10 unit subcut 3XD 07/24/24 02/02/25 History subcutaneous pen (Humalog KwikPen (U-100) Insulin) montelukast 10 mg tablet 10 mg PO QDAY 12/28/24 02/02/25 History Allergies Allergy/AdvReac Type Severity Reaction Status Date / Time animal dander Allergy Severe Swelling Verified 02/02/25 16:34 of Lip/Tongue/Throat bacitracin Allergy Severe Blister Verified 02/02/25 16:34 honey Allergy Severe Swelling Verified 02/02/25 16:34 of Lip/Tongue/Throat neomycin (From Neosporin Allergy Severe Blister Verified 02/02/25 16:34 ([id number])) polymyxin B (From Neosporin Allergy Severe Blister Verified 02/02/25 16:34 ([id number])) sucralose (From Splenda Allergy Severe Swelling Verified 02/02/25 16:34 (sucralose)) of Lip/Tongue/Throat insulin glargine (From Allergy Intermediate Redness of Verified 02/02/25 16:34 Lantus U-100 Insulin) Skin Artificial Sweetener Allergy Severe Swelling Uncoded 02/02/25 16:34 of Lip/Tongue/Throat Exam Vital Signs Temp Pulse Resp BP Pulse Ox O2 Del Method O2 Flow Rate 97.6 F 83 15 129/90 H 99 Room Air 2 02/03/25 11:54 02/03/25 11:54 02/03/25 11:54 02/03/25 11:54 02/03/25 11:54 02/03/25 11:54 02/03/25 08:40 Constitutional Constitutional: no acute distress Routine Respiratory Exam Respiratory: Present no resp distress Routine Extremities Exam Comments: Left second toe with dark blister at the base, swelling and erythema just proximal to this toe. The third toe is erythematous with no signs of necrosis Results Results: Laboratory Laboratory results: results reviewed Results: Imaging Imaging narrative: Foot x-ray reviewed Assessment & Plan Plan 59F with DMII on insulin with neuropathy, treated for osteomyelitis of the left second toe in July 2024 and again in December 2024, presenting with left foot swelling and pain and x-ray findings of extensive osteomyelitis of the left 2nd and 3rd toes. On exam patient has a bulla at the base of the toes as well as erythema indicative of abscess. I offered incision and drainage in the OR versus bedside, patient prefers bedside as she has no pain to the area
--- NOTE | 2025-02-03 12:52 | PD.SURPROC ---
PROCEDURES: Procedure Comment Procedure Comment: Informed consent obtained Patient premedicated with morphine 4 mg IV Timeout performed Left second toe cleansed with iodine Left second toe blister and area of fluctuance incised with #11 blade with immediate return of pus from which a culture was taken Wound probed with a hemostat to break up loculations, approximately 20 cc of pus removed Wound irrigated with saline and packed with half-inch plain packing, covered with gauze and an abdominal pad and wrapped with Kerlix Patient tolerated procedure well Abscess I/D Site: foot Side (if applicable): left Sedation/analgesia: other (Morphine 4mg IV) Technique: incised with #11 blade Amount of fluid (mL): 20 Irrigation: Yes Packing used?: plain (07/05 )
[2025-02-03] MEDS: GABAPENTIN 100 MG CAPSULE 800 MG PO (13:18)
--- NOTE | 2025-02-03 15:17 | ESPR_ITS ---
<Statement entered by Kole Jovel MD - 02/03/25 18:41> Senior Resident Attestation: I supervised/discussed management plan with application support intern physician Dr. Greco, and was involved in the care of this patient. I personally saw and examined the patient and discussed the assessment and plan with the entire medicine team, including my attending. I agree with the assessment and plan as documented. Patient was seen and examined at bedside. Patient underwent I&D by Dr. Espinal today. Per Dr. Espinal she will do amputation due to excessive cellulitis and purulent drainage, recommended to consult ID for antibiotic treatment. Will continue current management and await ID recommendations. Patient's care was discussed with attending physician, Dr. Buchanan. Kole Jovel MD PGY-3. Documentation for date of: 02/03/25 Subjective Subjective Interval history: Patient was seen at the bedside this morning. She reports a history of a chronic ulcer on the plantar aspect of her left foot. Last night, she noticed redness developing over her left second toe. This morning, she awoke to find the toe discolored?appearing purple?and associated with swelling, which she states has since improved. She endorses generalized weakness and reports feeling feverish. She denies nausea, vomiting, or abdominal pain. Her last bowel movement was four days ago. Exam Vital Signs Temp Pulse Resp BP Pulse Ox O2 Del Method O2 Flow Rate 97.6 F 95 15 129/90 H 99 Room Air 2 02/03/25 11:54 02/03/25 14:17 02/03/25 11:54 02/03/25 11:54 02/03/25 11:54 02/03/25 11:54 02/03/25 08:40 Narrative Exam Physical Exam General: Awake and in no acute distress. Conversational and non-toxic appearing. HEENT: Normocephalic, atraumatic, mucous membranes moist. Heart: Regular rate and rhythm, no murmurs. Lungs: Clear to auscultation with no wheezing or crackles. Abdomen: Soft, nondistended, nontender. No guarding or rebound tenderness. Neurologic: Alert and oriented x3, no gross neurological deficit, and patient able to move all 4 extremities. Extremities: Left third toe significantly swollen and purple-black in color with large bloody blister. Decrease sensation in bilateral lower extremities. Right foot has four toes - one was amputated. Psych: appropriate mood and affect. Objective Labs 02/04/25 05:41 02/04/25 05:41 Labs: Laboratory Results - last 24 hr 02/02/25 02/02/25 02/02/25 17:25 17:34 20:42 WBC 18.4 H RBC 3.29 L Hgb 9.0 L Hct 27.0 L MCV 82 MCH 27.4 MCHC 33.3 RDW Std Deviation 37.1 Plt Count 226 Neut % (Auto) 89 H Lymph % (Auto) 5 L [place] % (Auto) 5 Eos % (Auto) 0 Baso % (Auto) 0 Neut # (Auto) 16.3 H Lymph # (Auto) 0.9 L [place] # (Auto) 0.9 H Eos # (Auto) 0.1 Baso # (Auto) 0.0 Immature Gran # (Auto) 0.11 H Absolute Nucleated RBC 0.00 Immature Gran % 1 H Nucleated RBC % 0 PT 11.5 INR 1.1 APTT 32.5 Sodium 122 L Potassium 3.8 Chloride 88 L Carbon Dioxide 24.7 Anion Gap 9 BUN 13 Creatinine 1.5 H Estim Creat Clear Calc 37.9 L eGFR 40 L BUN/Creatinine Ratio 9 L Glucose 596 H* D Calculated Osmolality 274 L Lactic Acid 2.9 H 0.9 Calcium 8.6 Corrected Calcium 8.6 Phosphorus 1.7 L Magnesium 1.0 L Total Bilirubin 0.5 AST 19 ALT 17 Alkaline Phosphatase 80 Lactate Dehydrogenase 278 H Troponin I < 0.020 B-Natriuretic Peptide 49 Total Protein 6.5 Albumin 4.0 Globulin 2.5 Albumin/Globulin Ratio 1.6 Lipase 29 Procalcitonin 0.37 Ur Collection Type Clean Catch Urine Color Lt-Yellow Urine Clarity Clear Urine pH 6.0 Ur Specific [place] 1.019 Urine Protein Trace Urine Glucose (UA) 4+ A Urine Ketones Negative Urine Blood 1+ A Urine Nitrite Negative Urine Bilirubin Negative Urine Urobilinogen (Auto) Negative Ur Leukocyte Esterase Negative Urine RBC 3 Urine WBC 1 Ur Squamous Epith Cells 3 Urine Bacteria None 02/03/25 04:42 WBC 15.0 H RBC 2.86 L Hgb 8.1 L Hct 23.4 L MCV 82 MCH 28.3 MCHC 34.6 RDW Std Deviation 37.1 Plt Count 241 Neut % (Auto) 88 H Lymph % (Auto) 6 L [place] % (Auto) 5 Eos % (Auto) 1 Baso % (Auto) 0 Neut # (Auto) 13.2 H Lymph # (Auto) 0.9 L [place] # (Auto) 0.7 Eos # (Auto) 0.1 Baso # (Auto) 0.1 Immature Gran # (Auto) 0.09 H Absolute Nucleated RBC 0.00 Immature Gran % 1 H Nucleated RBC % 0 PT 11.5 INR 1.1 APTT 35.6 Sodium 132 L D Potassium 4.0 Chloride 97 L Carbon Dioxide 24.9 Anion Gap 10 BUN 11 Creatinine 1.1 Estim Creat Clear Calc 53.0 L eGFR 58 L BUN/Creatinine Ratio 10 L Glucose 273 H D Calculated Osmolality 273 L Lactic Acid Calcium 8.3 Corrected Calcium 8.8 Phosphorus 1.5 L Magnesium 2.2 Total Bilirubin 0.5 AST 16 ALT 14 Alkaline Phosphatase 73 Lactate Dehydrogenase Troponin I B-Natriuretic Peptide Total Protein 5.5 L Albumin 3.4 L D Globulin 2.1 L Albumin/Globulin Ratio 1.6 Lipase Procalcitonin Ur Collection Type Urine Color Urine Clarity Urine pH Ur Specific [place] Urine Protein Urine Glucose (UA) Urine Ketones Urine Blood Urine Nitrite Urine Bilirubin Urine Urobilinogen (Auto) Ur Leukocyte Esterase Urine RBC Urine WBC Ur Squamous Epith Cells Urine Bacteria Quality Measures Quality Measures VTE prophylaxis Assessment & Plan Assessment Current Active Medications: Generic Name Dose Route Start Last Admin Trade Name Freq PRN Reason Stop Dose Admin Acetaminophen 650 mg 02/02/25 20:54 02/03/25 07:33 Acetaminophen 325 Mg Tablet PO 03/04/25 20:53 650 mg Q6H PRN Administration Fever >100.4 or pain Protocol Hydrocodone Bitart/Acetaminophen 1 tab 02/02/25 20:54 Hydrocodone/Apap 5/325 Tablet PO 02/07/25 20:53 Q4HR PRN PAIN SCALE 4-10(Mod-Sev Dextrose 25 ml 02/02/25 20:54 Dextrose 50%-Water Inj 50 Ml Syringe IV 03/04/25 20:53 Q15MIN PRN BG 50-70 responsive npo pt Dextrose 50 ml 02/02/25 20:54 Dextrose 50%-Water Inj 50 Ml Syringe IV 03/04/25 20:53 Q15MIN PRN BG <50 OR BG <70 & pt unresponsive Docusate Sodium 100 mg 02/02/25 20:54 Docusate Sod 100 Mg Capsule PO 03/04/25 20:53 QDAY PRN CONSTIPATION Protocol Gabapentin 800 mg 02/02/25 22:00 02/03/25 13:18 Gabapentin 100 Mg Capsule PO 03/04/25 21:59 800 mg TID JASVIR Administration Glucagon 1 mg 02/02/25 20:54 Glucagon Inj 1 Mg Vial IM Q15MIN PRN BG <70, and no IV access Heparin Sodium (Porcine) 5,000 unit 02/03/25 09:00 02/03/25 09:46 Heparin Sod Inj 5000 Unit/Ml Vial SC 02/17/25 08:59 Not Given Q12HR JASVIR Piperacillin/Tazobactam/Dextrose 3.375 gm in 50 mls @ 12.5 mls/hr 02/02/25 22:08 02/03/25 13:19 Zosyn IV 02/09/25 22:07 12.5 mls/hr Q8HR JASVIR Administration Vancomycin/Sodium Chloride 750 mg in 150 mls @ 120 mls/hr 02/03/25 10:00 02/03/25 10:21 Vancomycin/Ns 750 Mg Ivpb IV 02/10/25 09:59 120 mls/hr Q12H JASVIR Administration Protocol Insulin Human Lispro 0 unit 02/03/25 07:30 02/03/25 11:33 Insulin Lispro (Admelog) 1 Unit/0.01 Ml Unit SC 03/05/25 07:29 Not Given AC JASVIR Protocol Home Medication- 10 unit 02/03/25 09:00 Please Speak With SC 03/05/25 08:59 Patient Caregiver To QDAY JASVIR Have Rx Brought To [facility] Ondansetron HCl 4 mg 02/02/25 20:54 Ondansetron Inj 2 Mg/Ml Inj 2 Ml IVP 03/04/25 20:53 Q6H PRN NAUSEA OR VOMITING Protocol Pharmacy Consult 1 each 02/03/25 09:00 Vancomycin Pharmacy To Dose 1 Each Each IV 03/05/25 08:59 QDAY PRN PROTOCOL Sennosides 1 tab 02/02/25 20:54 Senna Tablet PO 03/04/25 20:53 QDAY PRN constipation Protocol Plan 59-year-old female with past medical history of 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 #Sepsis 2/2 Osteomyelitis #Osteomyelitis of 2nd and 3rd digits of left foot SIRS positive with tachycardia, fever. Patient SIRS positive with tachycardia, fever one but not septic (sofa score 1). Foot x-ray: extensive osteomyelitis including proximal phalanges second and third digits and middle phalanx third digit ESR 40, CRP 22.2, lactic acid 2.9. Pro-Sony negative. Given 3L on IVF bolus at ED Fever improved with Tylenol General Surgery - Dr. Espinal - performed I&D for left second toe blister on 02/03 Plan - Continue Vancomycin pharmacy dosing (started 02/02) - Continue Zosyn 3.375 g every 6 hours (started 02/02) - Referral for wound care placed. Dr. Espinal recommends daily packing changes and consulting Dr. Sparks for antibiotic recommendations. - Monitor for signs of sepsis - Monitor ESR and CRP for antibiotic response #Insulin-dependent diabetes with polyneuropathy (poorly controlled) #Hyperglycemia Patient has history of diabetes, takes 10 units Tresiba daily, with Humalog sliding scale. Glucose 596 in ED and received 6 point units regular insulin. - ISS step two - Resume home Tresiba at 10 units daily, patient's son will bring needles from home as the hospital does not have the proper needles for Tresiba. - Resume home gabapentin 800 3 times daily for polyneuropathy - Every 6 hours glucose checks due to n.p.o. #MATTY, likely prerenal (resolved) Creatinine 1.1 --> 1.5 --> 1.1 EGFR is 40 --> 58. Received 1 L bolus normal saline, 1 L bolus lactated Ringer's. Plan - Avoid nephrotoxic medications - Renally dose meds as necessary - Monitor daily labs - Ensure adequate hydration #Hypophosphatemia #Hypomagnesemia #Pseudohyponatremia Patient phosphorus 1.7, magnesium 1.0. - 1 Neutra-Phos packet - Magnesium 4 g IV x 1 - Continue to monitor, replete as needed #History of seizure, following brain tumor resection Patient reports at least 1 seizure following a resection of a brain tumor, been asymptomatic since then. Currently not on any medications for seizures. - Seizure precautions #Chronic normocytic anemia #Peripheral artery disease Continue follow-up with PCP to obtain referral for vascular surgery. Patient will need further workup. DVT prophylaxis: Heparin SC BID GI prophylaxis: None Diet: Carb consistent diet Lines: Peripheral IV Code status: Full code Patient plan of care was discussed with the senior resident, Dr. Jovel, and attending physician, Dr. Buchanan. Ruth Greco, DO PGY-1 Attending Provider Attestation/Addendum I have examined the patient, reviewed labs and imaging findings, discussed the case with the resident(s), and reviewed entered orders. I agree with the plan of care as outlined in this note, with these additional summaries/recommendations: Patient and son seen at bedside. No acute overnight events. Patient diagnosed with sepsis secondary to cellulitis/osteomyelitis of the foot. Evidence of endorgan damage with MATTY. X-ray of left foot showed extensive osteomyelitis including proximal phalanges of 2nd and 3rd digits, and middle phalanx third digit. Patient was started on broad-spectrum antibiotics. Blood cultures taken, follow-up results when available. General surgery and infectious disease consulted. Patient will undergo incision and drainage with general surgery today and we will follow-up if amputation is planned. If no amputation patient will likely require PICC line and 6 weeks although she has completed multiple courses in the past and question whether an additional course would improve outcomes but appreciate infectious disease recommendations. Leukocytosis improving, repeat hematology panel in AM. ESR 40. Patient has uncontrolled diabetes mellitus type 2. A1c 9.2%. Order diabetic education. Continue basal bolus insulin to target blood sugar of 140-180 while hospitalized. Mild hypophosphatemia and replacement given. Patient and son updated on the plan and in agreement. All questions answered to satisfaction. Please see residents note for additional details and management. Dr. Chanel MD
--- NOTE | 2025-02-03 16:16 | PC.SS ---
Rounding: On IV ABX may need outpt, DC plan Home. Pending ID [email or web address]
[2025-02-03] MEDS: INSULIN LISPRO (AdmeLOG) 1 UNIT/0.01 ML UNIT SC (17:24)
[2025-02-03] MEDS: TRESIBA 200 UNIT/ML SC (20:37)
[2025-02-03] MEDS: HEPARIN SOD INJ 5000 UNIT/ML VIAL SC (20:38)
--- NOTE | 2025-02-03 20:55 | PC.NURSE ---
patient refusing gabapentin because we only have the capsule form and pt states it gets stuck in her throat. Pt has her home gabapentin that is not capsulized. Pts home med taken down to pharmacy to get labeled as pts own home med.
[2025-02-03] MEDS: GABAPENTIN 800 MG PO (22:20)
[2025-02-04] VITALS (9 sets, daily range): BP systolic 115–150; BP diastolic 58–74; PULSE 58–96; RESP 16–97; TEMP 36.1–36.8; O2SAT 94–97; BMI 28.0
[2025-02-04] MEDS: INSULIN LISPRO (AdmeLOG) 1 UNIT/0.01 ML UNIT 8 UNIT SC (00:16)
[2025-02-04] MEDS: GABAPENTIN 800 MG PO ×3 (05:42→21:09)
[2025-02-04] MEDS: PIPER/TAZO 3.375 GM PREMIX 3.375 GM/50 ML BAG IV (05:42)
[2025-02-04 06:24] LABS: Basophils # (Auto) 0.1 Thou/mm3 (0.0-0.2); Basophils % (Auto) 0 % (0-2.5); Eosinophils # (Auto) 0.2 Thou/mm3 (0.0-0.5); Eosinophils % (Auto) 1 % (0-10); Hematocrit 22.4 % (36.0-46.0); Immature Granulocytes Auto 0.15 Thou/mm3 (0.00-0.00); Lymphocytes # (Auto) 1.7 Thou/mm3 (1.0-4.8); Lymphocytes % (Auto) 10 % (10-50); Mean Corpuscular HGB Conc 33.9 g/dl (31.0-37.0); Mean Corpuscular Hemoglobin 28.3 pg (25.0-35.0); Mean Corpuscular Volume 83 fL (80-100); Monocytes # (Auto) 1.1 Thou/mm3 (0.0-0.8); Monocytes % (Auto) 7 % (0-12); Neutrophils # (Auto) 13.9 Thou/mm3 (1.8-7.7); Neutrophils % (Auto) 81 % (37-80); Nucleated Red Blood Cell # 0.00 Thou/mm3 (0.00-0.00); Nucleated Red Blood Cell % 0 /100 WBC (0); Platelet Count 285 Thou/mm3 (140-440); RDW Standard Deviation 38.9 fL (36.4-46.3); Red Blood Count 2.69 Miln/mm3 (4.00-5.20); White Blood Count 17.1 Thou/mm3 (3.6-11.0)
[2025-02-04 06:41] LABS: Hemoglobin 7.6 g/dL (12.0-16.0)
[2025-02-04 06:42] LABS: Alanine Aminotransferase 12 U/L (10-49); Albumin, Serum 3.2 gm/dL (3.5-5.0); Albumin/Globulin Ratio 1.5 (1.2-2.2); Alkaline Phosphatase 73 U/L (46-116); Anion Gap 8 (7-16); Aspartate Amino Transferase 13 U/L (0-34); BUN/Creatinine Ratio 12 Ratio (12-20); Bilirubin,Total 0.3 mg/dL (0.3-1.2); Blood Urea Nitrogen 13 mg/dL (9-23); Calcium 8.1 mg/dL (8.3-10.6); Calcium (Corrected) 8.7 mg/dL (8.5-10.1); Carbon Dioxide 26.3 mMol/L (20.0-31.0); Chloride 97 mMol/L (98-107); Creatinine (Component) 1.1 mg/dL (0.6-1.3); Estimated Creatinine Clearance 53.0 mL/min (>60); Globulin 2.1 gm/dL (2.3-3.5); Glucose 171 mg/dL (74-106); Magnesium 1.9 mg/dL (1.6-2.6); Osmolality,Calculated 266 (275-295); Phosphorous 1.7 mg/dL (2.4-5.1); Potassium 3.8 mMol/L (3.4-5.1); Sodium 131 mMol/L (136-145); Total Protein 5.3 gm/dL (5.7-8.2); eGFR 58 See Note
[2025-02-04] MEDS: INSULIN LISPRO (AdmeLOG) 1 UNIT/0.01 ML UNIT SC ×3 (07:52→17:05)
[2025-02-04] MEDS: HEPARIN SOD INJ 5000 UNIT/ML VIAL SC (09:05)
[2025-02-04 10:32] LABS: Vancomycin,Trough 11.2 mcg/mL (5.0-10.0)
--- NOTE | 2025-02-04 10:46 | ESPR_ITS ---
Subjective Subjective Interval history: gram stain from yest mixed was on po doxy at home but apparently that failed Exam Vital Signs Temp Pulse Resp BP Pulse Ox O2 Del Method O2 Flow Rate 97.4 F 77 18 121/68 96 Room Air 2 02/04/25 08:00 02/04/25 08:00 02/04/25 08:00 02/04/25 08:00 02/04/25 08:00 02/04/25 08:00 02/03/25 08:40 Narrative Exam seen in january note redictated. Objective - Internal Medicine Labs 02/04/25 05:41 02/04/25 05:41 Labs: Laboratory Results - last 24 hr 02/04/25 02/04/25 05:41 09:41 WBC 17.1 H RBC 2.69 L Hgb 7.6 L Hct 22.4 L MCV 83 MCH 28.3 MCHC 33.9 RDW Std Deviation 38.9 Plt Count 285 D Neut % (Auto) 81 H Lymph % (Auto) 10 [place] % (Auto) 7 Eos % (Auto) 1 Baso % (Auto) 0 Neut # (Auto) 13.9 H Lymph # (Auto) 1.7 [place] # (Auto) 1.1 H Eos # (Auto) 0.2 Baso # (Auto) 0.1 Immature Gran # (Auto) 0.15 H Absolute Nucleated RBC 0.00 Immature Gran % 1 H Nucleated RBC % 0 Sodium 131 L Potassium 3.8 Chloride 97 L Carbon Dioxide 26.3 Anion Gap 8 BUN 13 Creatinine 1.1 Estim Creat Clear Calc 53.0 L eGFR 58 L BUN/Creatinine Ratio 12 Glucose 171 H D Calculated Osmolality 266 L Calcium 8.1 L Corrected Calcium 8.7 Phosphorus 1.7 L Magnesium 1.9 Total Bilirubin 0.3 AST 13 ALT 12 Alkaline Phosphatase 73 Total Protein 5.3 L Albumin 3.2 L Globulin 2.1 L Albumin/Globulin Ratio 1.5 Vancomycin Trough 11.2 H Assessment & Plan A&P Narrative osteo L foot, chronic dm II. control not great, follows at [facility] hx of brain tumor, resected replace doxy with augmentin for 3 mo f/u with vascular for arteriogrm and see primary for dm control. will likely see again on tue pm Time Spent With Patient Time: Total time spent is greater than 50% in coordination of care (as documented) at patient's floor/unit and/or counseling patient:
[2025-02-04] MEDS: NAPH,KPH MBDB 1 PACKET (1.5 GM) PO ×2 (11:18→21:09)
--- NOTE | 2025-02-04 11:52 | ESCONSULT_ITS ---
RE: ROMEL REID : [id number] DATE OF CONSULTATION: 02/04/2025 HISTORY OF PRESENT ILLNESS: The patient is an unfortunate woman. She is not that old, but is 59. HIV and hep C testing were negative a couple of years ago, so we did not repeat them. I saw her in January. She is diabetic. A1c is over 9 in late December. I am going to repeat it tomorrow. She has a persistent left foot problem. She was supposed to go on some oral antibiotics in late December, but I am not sure if that happened. She follows at [facility]. As is typically seen, the hospitalist recommended that she follow up with me, but I cannot see these patient, so I cannot prescribe the medication. The hospitalists need to prescribe it. I am going to switch her to Augmentin for 3 months. If that does not work, you can try something else. She was just given doxycycline for 6 weeks a couple of months ago. Monthly labs were advised. I cannot see her in followup. Please arrange for followup with the outpatient primary. DT: 10:46:14 TT: 11:47:00 Ref: [id number] - TID: [id number] MTDD
--- NOTE | 2025-02-04 14:32 | PD.SURPROG ---
Documentation for date of: 02/04/25 Subjective Subjective Brief History: 59F with DMII on insulin with neuropathy, treated for osteomyelitis of the left second toe in July 2024 and again in December 2024, presenting with left foot swelling and pain. Patient reports the pain worsened yesterday prompting her to seek care in ER, she underwent foot x-ray showing extensive osteomyelitis of the 2nd and 3rd toes Patient states for the last few days her blood sugars were 400+ at home, she was feeling malaise and having anorexia. Today her blood sugars have been in the high 200s PMH: DMII, seizures, brain tumor PSH: Crnniotomy with resection of brain tumor, Csection, I&D of left foot abscess, amputation of R 2nd toe Meds: No antiplatelet or anticoagulation Allergies: Lantus, bacitracin, honey, neomycin, sucralose Narrative: Pt reports feeling well with no pain, but WBC up to 17 today and finger stick up to 323 Exam Vital Signs Temp Pulse Resp BP Pulse Ox O2 Del Method O2 Flow Rate 96.9 F 87 17 133/68 H 97 Room Air 2 02/04/25 11:31 02/04/25 12:00 02/04/25 11:31 02/04/25 11:31 02/04/25 11:31 02/04/25 11:31 02/03/25 08:40 Constitutional Constitutional: no acute distress Routine Respiratory Exam Respiratory: Present no resp distress Routine Extremities Exam Comments: left second toe with necrotic skin and subcutaneous tissue at base, more pus expressed today. At plantar surface there is also a punctate opening with pus expressable, minimal erythema Results Results: Laboratory Laboratory results: results reviewed Results: Imaging Imaging narrative: Foot xray reviewed Assessment & Plan Plan 59F with DMII on insulin with neuropathy, treated for osteomyelitis of the left second toe in July 2024 and again in December 2024, presenting with left foot swelling and pain and x-ray findings of extensive osteomyelitis of the left 2nd and 3rd toes. Yesterday I performed I&D of the left second toe, on reexamination today there is extensive necrotic subcutaneous tissue and now considering the fact that she has already been on abx for osteomyelitis I recommended amputation of this toe. I explained that the wound will need to be left open due to the degree of necrotic tissue meaning she will have a wound that will likely take months to fully heal. All questions were answered and pt is agreeable to proceeding NPO after MN for left second toe amputation tomorrow 02/05 at 730am
[2025-02-04] MEDS: ASCORBIC ACID 250 MG TABLET 500 MG PO ×2 (15:03→21:09)
[2025-02-04] MEDS: ZINC SULFATE 220 MG CAPSULE PO (15:03)
--- NOTE | 2025-02-04 16:19 | PC.SS ---
SS follow up note Patient is being followed by Dr. Espinal. Patient will discharge home when medically cleared.
--- NOTE | 2025-02-04 17:39 | ESPR_ITS ---
<Statement entered by Jonathan Bonner MD - 02/04/25 20:04> Patient was examined and case was reviewed with team including attending physician. Note reviewed, I agree with most of its contents and agree with the patient's care. Patient seen today at the bedside found awake, alert, orientedx3. No overnight events reported. Vitals and labs reviewed. Patient is status post incision and drainage by general surgery services yesterday however on reevaluation by surgery service today there is extensive necrotic subcutaneous tissue and since the patient has already been on treatment for osteomyelitis patient will require amputation of the toe. Patient placed n.p.o. after midnight for surgical observation in the a.m. Case discussed with my attending Dr. Chanel Bonner MD PGY-2 Documentation for date of: 02/04/25 Subjective Subjective Interval history: Patient evaluated at bedside. She reports no new symptoms, denies erythema or swelling of the rest of the foot or lower left leg. She reports that she is able to ambulate with support. Denies myalgia, diaphoresis, chills. s/p I&D yesterday, plan for amputation with Dr. Whiting. Exam Vital Signs Temp Pulse Resp BP Pulse Ox O2 Del Method O2 Flow Rate 96.9 F 87 17 133/68 H 97 Room Air 2 02/04/25 11:02/04/25 12:00 02/04/25 11:02/04/25 11:02/04/25 11:02/04/25 11:02/03/25 08:40 Narrative Exam General: No acute distress, well nourished Eye: PERRL, EOMI, normal conjunctiva, no scleral icterus HENT: Normocephalic, atraumatic, normal hearing, moist oral mucosa Neck: Supple, non-tender, no JVD, no lymphadenopathy Lungs: Clear to auscultation bilaterally, non-labored respirations, symmetric chest rise, no use of accessory muscles Heart: Normal S1 and S2, no S3 or S4 appreciated. Normal rate and regular rhythm, no murmurs, rubs gallops, or edema. Peripheral pulses intact bilaterally, capillary refill brisk distally Abdomen: Soft, non-tender, non-distended, normal bowel sounds. No guarding or rebound tenderness. Musculoskeletal: Normal range of motion and strength. Left third toe significantly swollen and purple-black in color with large bloody blister. Decrease sensation in bilateral lower extremities. Right foot has four toes - one was amputated. Skin: Skin is warm, dry, no rashes or lesions. Neurologic: Alert, awake and oriented x3. CN II-XII grossly intact. No focal neuro deficits. No signs of meningeal irritation noted. Psychiatric: Cooperative, appropriate mood and affect Objective Labs 02/05/25 05:30 02/05/25 05:30 Labs: Laboratory Results - last 24 hr 02/04/25 02/04/25 05:41 09:41 WBC 17.1 H RBC 2.69 L Hgb 7.6 L Hct 22.4 L MCV 83 MCH 28.3 MCHC 33.9 RDW Std Deviation 38.9 Plt Count 285 D Neut % (Auto) 81 H Lymph % (Auto) 10 Harmon % (Auto) 7 Eos % (Auto) 1 Baso % (Auto) 0 Neut # (Auto) 13.9 H Lymph # (Auto) 1.7 Harmon # (Auto) 1.1 H Eos # (Auto) 0.2 Baso # (Auto) 0.1 Immature Gran # (Auto) 0.15 H Absolute Nucleated RBC 0.00 Immature Gran % 1 H Nucleated RBC % 0 Sodium 131 L Potassium 3.8 Chloride 97 L Carbon Dioxide 26.3 Anion Gap 8 BUN 13 Creatinine 1.1 Estim Creat Clear Calc 53.0 L eGFR 58 L BUN/Creatinine Ratio 12 Glucose 171 H D Calculated Osmolality 266 L Calcium 8.1 L Corrected Calcium 8.7 Phosphorus 1.7 L Magnesium 1.9 Total Bilirubin 0.3 AST 13 ALT 12 Alkaline Phosphatase 73 Total Protein 5.3 L Albumin 3.2 L Globulin 2.1 L Albumin/Globulin Ratio 1.5 Vancomycin Trough 11.2 H Quality Measures Quality Measures VTE prophylaxis Assessment & Plan Assessment Current Active Medications: Generic Name Dose Route Start Last Admin Trade Name Freq PRN Reason Stop Dose Admin Acetaminophen 650 mg 02/02/25 20:54 02/03/25 07:33 Acetaminophen 325 Mg Tablet PO 03/04/25 20:53 650 mg Q6H PRN Administration Fever >100.4 or pain Protocol Hydrocodone Bitart/Acetaminophen 1 tab 02/02/25 20:54 Hydrocodone/Apap 5/325 Tablet PO 02/07/25 20:53 Q4HR PRN PAIN SCALE 4-10(Mod-Sev Amoxicillin/Clavulanate Potassium 1 tab 02/04/25 21:00 Amoxicillin/Pot Clav 875 Tablet PO 02/11/25 20:59 BID JASVIR Ascorbic Acid 500 mg 02/04/25 15:00 02/04/25 15:03 Ascorbic Acid 250 Mg Tablet PO 03/06/25 14:59 500 mg TID JASVIR Administration Tresiba Flextouch 0 ea 02/03/25 21:00 02/03/25 20:37 200 Unit/Ml SC 03/05/25 20:59 10 unit HS JASVIR Administration Protocol Pom - Gabapentin 800 0 ea 02/03/25 22:00 02/04/25 14:04 Mg Tablet PO 03/05/25 21:59 800 tablet TID [facility] Administration Protocol Dextrose 25 ml 02/02/25 20:54 Dextrose 50%-Water Inj 50 Ml Syringe IV 03/04/25 20:53 Q15MIN PRN BG 50-70 responsive npo pt Dextrose 50 ml 02/02/25 20:54 Dextrose 50%-Water Inj 50 Ml Syringe IV 03/04/25 20:53 Q15MIN PRN BG <50 OR BG <70 & pt unresponsive Docusate Sodium 100 mg 02/02/25 20:54 Docusate Sod 100 Mg Capsule PO 03/04/25 20:53 QDAY PRN CONSTIPATION Protocol Glucagon 1 mg 02/02/25 20:54 Glucagon Inj 1 Mg Vial IM Q15MIN PRN BG <70, and no IV access Heparin Sodium (Porcine) 5,000 unit 02/03/25 09:00 02/04/25 09:05 Heparin Sod Inj 5000 Unit/Ml Vial SC 02/17/25 08:59 5,000 unit Q12HR JASVIR Administration Insulin Human Lispro 0 unit 02/03/25 07:30 02/04/25 17:05 Insulin Lispro (Admelog) 1 Unit/0.01 Ml Unit SC 03/05/25 07:29 4 unit AC [facility] Administration Protocol Ondansetron HCl 4 mg 02/02/25 20:54 Ondansetron Inj 2 Mg/Ml Inj 2 Ml IVP 03/04/25 20:53 Q6H PRN NAUSEA OR VOMITING Protocol Potassium Phos/Sodium Phos 1 packet 02/04/25 11:00 02/04/25 11:18 Naph,Kph Mbdb 1 Packet (1.5 Gm) PO 03/06/25 10:59 1 packet BID JASVIR Administration Sennosides 1 tab 02/02/25 20:54 Senna Tablet PO 03/04/25 20:53 QDAY PRN constipation Protocol Zinc Sulfate 220 mg 02/04/25 14:45 02/04/25 15:03 Zinc Sulfate 220 Mg Capsule PO 02/19/25 14:44 220 mg QDAY JASVIR Administration Plan 59-year-old female with past medical history of 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 #Sepsis 2/2 Osteomyelitis - resolved #Osteomyelitis of 2nd and 3rd digits of left foot SIRS positive with tachycardia, fever. Patient SIRS positive with tachycardia, fever one but not septic (sofa score 1). Foot x-ray: extensive osteomyelitis including proximal phalanges second and third digits and middle phalanx third digit ESR 40, CRP 22.2, lactic acid 2.9. Pro-Sony negative. Given 3L on IVF bolus at ED Fever improved with Tylenol General Surgery - Dr. Espinal - performed I&D for left second toe blister on 02/03 Plan: - D/C Vancomycin and Zosyn - Start Augmentin BID (per Dr. Sparks) - Referral for wound care placed. Dr. Espinal recommends daily packing changes and consulting Dr. Sparks for antibiotic recommendations. - Monitor for signs of sepsis - Monitor ESR and CRP for antibiotic response - Plan for amputation with Dr. Whiting 02/05. NPO after midnight - Zinc and vitamin C x14 days to promote wound healing #Insulin-dependent diabetes with polyneuropathy (poorly controlled) #Hyperglycemia - resolved Patient has history of diabetes, takes 10 units Tresiba daily, with Humalog sliding scale. Glucose 596 in ED and received 6 point units regular insulin. Plan: - ISS step two - Resume home Tresiba at 10 units daily, patient's son will bring needles from home as the hospital does not have the proper needles for Tresiba. - Resume home gabapentin 800 3 times daily for polyneuropathy - Every 6 hours glucose checks due to n.p.o. #MATTY, likely prerenal (resolved) Creatinine 1.1 --> 1.5 --> 1.1 EGFR is 40 --> 58. Received 1 L bolus normal saline, 1 L bolus lactated Ringer's. Plan - Avoid nephrotoxic medications - Renally dose meds as necessary - Monitor daily labs - Ensure adequate hydration #Hypophosphatemia #Hypomagnesemia #Pseudohyponatremia Patient phosphorus 1.7, magnesium 1.0. Plan: - Repletion as needed #History of seizure, following brain tumor resection Patient reports at least 1 seizure following a resection of a brain tumor, been asymptomatic since then. Currently not on any medications for seizures. Plan: - Seizure precautions #Chronic normocytic anemia #Peripheral artery disease Plan: Continue follow-up with PCP to obtain referral for vascular surgery. Patient will need further workup. DVT prophylaxis: Heparin SC BID GI prophylaxis: None Diet: Carb consistent diet Lines: Peripheral IV Code status: Full code Plan discussed with Dr. Tim Bonner (senior resident) and Dr. Buchanan (attending) Melissa Whitten MD PGY1 Attending Provider Attestation/Addendum I have examined the patient, reviewed labs and imaging findings, discussed the case with the resident(s), and reviewed entered orders. I agree with the plan of care as outlined in this note, with these additional summaries/recommendations: Patient and son seen at bedside. No acute overnight events. She reports some improvement of left foot pain. Patient diagnosed with sepsis secondary to cellulitis/osteomyelitis of the foot. Evidence of endorgan damage with MATTY. Sepsis now resolved. X-ray of left foot showed extensive osteomyelitis including proximal phalanges of 2nd and 3rd digits, and middle phalanx third digit. Patient was started on broad-spectrum antibiotics. Blood cultures taken, follow-up results when available. General surgery and infectious disease consulted. Patient s/p incision and drainage with general surgeryand will go for formal amputation tomorrow with general surgery. Leukocytosis persistent, repeat hematology panel in AM. ESR 40. Patient has uncontrolled diabetes mellitus type 2. A1c 9.2%. Continue diabetic education. Continue basal bolus insulin to target blood sugar of 140-180 while hospitalized. Mild hypophosphatemia and replacement given. Patient and son updated on the plan and in agreement. All questions answered to satisfaction. Please see residents note for additional details and management. Dr. Chanel MD
[2025-02-04] MEDS: TRESIBA 200 UNIT/ML SC (21:09)
[2025-02-04] MEDS: AMOXICILLIN/POT CLAV 875 TABLET 1 TAB PO (21:09)
[2025-02-05] VITALS (13 sets, daily range): BP systolic 123–160; BP diastolic 58–87; PULSE 73–92; RESP 12–97; TEMP 36.1–36.6; O2SAT 95–100
[2025-02-05 06:13] LABS: Basophils # (Auto) 0.1 Thou/mm3 (0.0-0.2); Basophils % (Auto) 0 % (0-2.5); Eosinophils # (Auto) 0.3 Thou/mm3 (0.0-0.5); Eosinophils % (Auto) 2 % (0-10); Hematocrit 25.3 % (36.0-46.0); Immature Granulocytes Auto 0.36 Thou/mm3 (0.00-0.00); Lymphocytes # (Auto) 1.9 Thou/mm3 (1.0-4.8); Lymphocytes % (Auto) 13 % (10-50); Mean Corpuscular HGB Conc 34.4 g/dl (31.0-37.0); Mean Corpuscular Hemoglobin 28.5 pg (25.0-35.0); Mean Corpuscular Volume 83 fL (80-100); Monocytes # (Auto) 1.1 Thou/mm3 (0.0-0.8); Monocytes % (Auto) 8 % (0-12); Neutrophils # (Auto) 10.9 Thou/mm3 (1.8-7.7); Neutrophils % (Auto) 75 % (37-80); Nucleated Red Blood Cell # 0.00 Thou/mm3 (0.00-0.00); Nucleated Red Blood Cell % 0 /100 WBC (0); Platelet Count 394 Thou/mm3 (140-440); RDW Standard Deviation 39.5 fL (36.4-46.3); Red Blood Count 3.05 Miln/mm3 (4.00-5.20); White Blood Count 14.6 Thou/mm3 (3.6-11.0)
[2025-02-05 06:27] LABS: Hemoglobin 8.7 g/dL (12.0-16.0)
[2025-02-05 06:42] LABS: Alanine Aminotransferase 16 U/L (10-49); Albumin, Serum 3.6 gm/dL (3.5-5.0); Albumin/Globulin Ratio 1.6 (1.2-2.2); Alkaline Phosphatase 81 U/L (46-116); Anion Gap 8 (7-16); Aspartate Amino Transferase 18 U/L (0-34); BUN/Creatinine Ratio 11 Ratio (12-20); Bilirubin,Total 0.2 mg/dL (0.3-1.2); Blood Urea Nitrogen 11 mg/dL (9-23); Calcium 8.7 mg/dL (8.3-10.6); Calcium (Corrected) 9.0 mg/dL (8.5-10.1); Carbon Dioxide 28.4 mMol/L (20.0-31.0); Chloride 100 mMol/L (98-107); Creatinine (Component) 1.0 mg/dL (0.6-1.3); Estimated Creatinine Clearance 56.9 mL/min (>60); Globulin 2.3 gm/dL (2.3-3.5); Glucose 181 mg/dL (74-106); Magnesium 1.5 mg/dL (1.6-2.6); Osmolality,Calculated 276 (275-295); Phosphorous 2.8 mg/dL (2.4-5.1); Potassium 3.6 mMol/L (3.4-5.1); Sodium 136 mMol/L (136-145); Total Protein 5.9 gm/dL (5.7-8.2); eGFR > 60 See Note
[2025-02-05 06:44] LABS: Glucose Estimated Average 237 mg/dL (80-131); Hemoglobin A1C 9.9 % Hgb (4.8-6.0)
--- NOTE | 2025-02-05 08:16 | PD.SUROPNT ---
Date of Procedure 02/05/25 Pre Op Diagnosis Left second toe chronic osteomyelitis with necrotic subcutaneous tissue and abscess Post Op Diagnosis Same Procedure Amputation of left second toe Findings Left second toe osteomyelitis with necrotic surrounding tissue and pus Procedure Description After discussion of risks and benefits, patient was brought to the operating room, and SCD was placed on the right and general anesthesia with LMA was induced. She was prepped and draped in the usual sterile fashion. After timeout the left second toe was grasped with a Cici clamp and the necrotic skin was incised with electrocautery the bone was transected to the proximal phalanx using a bone cutter and the surrounding necrotic tissue was sharply excised using a curette as well as scissors. A few cc of pus were expressed from the foot and the wound bed was irrigated with Betadine/hydrogen peroxide and saline. The remaining bone was smoothed with a smoother tool. Patient additionally had an existing opening on the plantar surface of the foot from which a few additional cc were expressed. This wound was also irrigated with Betadine/hydrogen peroxide and saline. Both wounds were packed with half-inch plain packing and covered with gauze which was secured with Kerlix. Patient was extubated and brought to PACU in stable condition Pathology / specimen Other (Left second toe) Estimated Blood Loss 10 Surgeon Jackelin Espinal MD Surgical Staff Operation Date: 02/05/25 07:30 Case Staff Anesthesiologist: Sheldon Cavanaugh
--- NOTE | 2025-02-05 08:19 | SUR.PHASEI ---
0819: Pt. AAOx4, vitals stable, breathing unlabored, no complaint of pain or nausea, dressing to left fool CDI, no active bleed noted, report received from Adeel JIMENEZ and MD Cavanaugh.
--- NOTE | 2025-02-05 08:49 | SUR.PHASEI ---
0849: Pt. AAOx4, vitals stable, breathing unlabored, no complaint of pain or nausea, dressing to left foot CDI, no active bleed noted, pt. tolerated sips of water well, pt. able to move bilateral legs, report given to floor nurse prior to transfer to room 365.
[2025-02-05] MEDS: Magnesium Sulfate 4 GM Ivpb 4 GM/50 ML BAG IV (09:21)
[2025-02-05] MEDS: INSULIN LISPRO (AdmeLOG) 1 UNIT/0.01 ML UNIT SC ×3 (09:21→17:26)
[2025-02-05] MEDS: ZINC SULFATE 220 MG CAPSULE PO (09:21)
[2025-02-05] MEDS: AMOXICILLIN/POT CLAV 875 TABLET 1 TAB PO ×2 (09:21→21:22)
[2025-02-05] MEDS: NAPH,KPH MBDB 1 PACKET (1.5 GM) PO ×2 (09:21→21:22)
[2025-02-05 09:43] LABS: C-Reactive Protein 17.8 mg/dL (0.0-0.9)
[2025-02-05] MEDS: MORPHINE SULF INJ 10 MG/ML VIAL 3 MG IVP (09:44)
[2025-02-05] MEDS: MONTELUKAST SODIUM 10 MG TABLET PO (10:09)
[2025-02-05 10:49] LABS: Sed Rate (ESR) 76 mm/hr (0-30)
[2025-02-05] MEDS: ASCORBIC ACID 250 MG TABLET 500 MG PO (13:31)
[2025-02-05] MEDS: GABAPENTIN 800 MG PO (13:31)
--- NOTE | 2025-02-05 16:23 | PC.PT ---
PT eval only. Patient was I with transfers and mod I with ambulation.
--- NOTE | 2025-02-05 17:11 | ESPR_ITS ---
<Statement entered by Jonathan Bonner MD - 02/05/25 17:42> Patient was examined and case was reviewed with team including attending physician. Note reviewed, I agree with most of its contents and agree with the patient's care. Patient seen today at the bedside found awake, alert, orientedx3. No overnight events reported. Vitals and labs reviewed. Patient is status post amputation of left second toe with general surgery however patient continues to have other toes of necrosis for which patient will continue antibiotic therapy as per infectious disease recommendations we will continue with Augmentin for a duration of 3 months as well as wound care. Patient also pending physical therapy reevaluation. Drink zinc and vitamin C added for wound healing. Case discussed with my attending Dr. Chanel Bonner MD PGY-2 Documentation for date of: 02/05/25 Subjective Subjective Interval history: Patient was seen at the bedside following surgery for left second toe amputation this morning. She reports no pain at this time and has no current complaints. She requested Singulair, which she takes daily at home for allergies and nasal congestion. Exam Vital Signs Temp Pulse Resp BP Pulse Ox O2 Del Method O2 Flow Rate 97.4 F 84 18 149/87 H 97 Room Air 4 02/05/25 16:00 02/05/25 16:00 02/05/25 16:00 02/05/25 16:02/05/25 16:02/05/25 16:00 02/05/25 08:29 Narrative Exam Physical Exam General: Awake and in no acute distress. Conversational and non-toxic appearing. HEENT: Normocephalic, atraumatic, mucous membranes moist. Heart: Regular rate and rhythm, no murmurs. Lungs: Clear to auscultation with no wheezing or crackles. Abdomen: Soft, nondistended, nontender. No guarding or rebound tenderness. Neurologic: Alert and oriented x3, no gross neurological deficit, and patient able to move all 4 extremities. Extremities: Left foot covered with gauze. Decrease sensation in bilateral lower extremities. Right foot has four toes - one was amputated. Psych: appropriate mood and affect. Objective Labs 02/06/25 04:23 02/06/25 04:23 Labs: Laboratory Results - last 24 hr 02/05/25 05:30 WBC 14.6 H RBC 3.05 L Hgb 8.7 L Hct 25.3 L MCV 83 MCH 28.5 MCHC 34.4 RDW Std Deviation 39.5 Plt Count 394 D Neut % (Auto) 75 Lymph % (Auto) 13 Merrick % (Auto) 8 Eos % (Auto) 2 Baso % (Auto) 0 Neut # (Auto) 10.9 H Lymph # (Auto) 1.9 Merrick # (Auto) 1.1 H Eos # (Auto) 0.3 Baso # (Auto) 0.1 Immature Gran # (Auto) 0.36 H Absolute Nucleated RBC 0.00 Immature Gran % 3 H Nucleated RBC % 0 ESR 76 H Sodium 136 Potassium 3.6 Chloride 100 Carbon Dioxide 28.4 Anion Gap 8 BUN 11 Creatinine 1.0 Estim Creat Clear Calc 56.9 L eGFR > 60 BUN/Creatinine Ratio 11 L Glucose [address] Glu mg/dL 237 H Hemoglobin A1c 9.9 H Calculated Osmolality 276 Calcium 8.7 Corrected Calcium 9.0 Phosphorus 2.8 Magnesium 1.5 L Total Bilirubin 0.2 L AST 18 ALT 16 Alkaline Phosphatase 81 C-Reactive Prot, Quant 17.8 H Total Protein 5.9 Albumin 3.6 Globulin 2.3 Albumin/Globulin Ratio 1.6 Quality Measures Quality Measures VTE prophylaxis Assessment & Plan Assessment Current Active Medications: Generic Name Dose Route Start Last Admin Trade Name Freq PRN Reason Stop Dose Admin Acetaminophen 650 mg 02/02/25 20:54 02/03/25 07:33 Acetaminophen 325 Mg Tablet PO 03/04/25 20:53 650 mg Q6H PRN Administration Fever >100.4 or pain Protocol Hydrocodone Bitart/Acetaminophen 1 tab 02/02/25 20:54 Hydrocodone/Apap 5/325 Tablet PO 02/07/25 20:53 Q4HR PRN PAIN SCALE 4-10(Mod-Sev Amoxicillin/Clavulanate Potassium 1 tab 02/04/25 21:00 02/05/25 09:21 Amoxicillin/Pot Clav 875 Tablet PO 02/11/25 20:59 1 tab BID JASVIR Administration Ascorbic Acid 500 mg 02/04/25 15:00 02/05/25 13:31 Ascorbic Acid 250 Mg Tablet PO 03/06/25 14:59 500 mg TID JASVIR Administration Tresiba Flextouch 0 ea 02/03/25 21:00 02/04/25 21:09 200 Unit/Ml SC 03/05/25 20:59 10 unit HS [facility] Administration Protocol Pom - Gabapentin 800 0 ea 02/03/25 22:00 02/05/25 13:31 Mg Tablet PO 03/05/25 21:59 1 tablet TID JASVIR Administration Protocol Dextrose 25 ml 02/02/25 20:54 Dextrose 50%-Water Inj 50 Ml Syringe IV 03/04/25 20:53 Q15MIN PRN BG 50-70 responsive npo pt Dextrose 50 ml 02/02/25 20:54 Dextrose 50%-Water Inj 50 Ml Syringe IV 03/04/25 20:53 Q15MIN PRN BG <50 OR BG <70 & pt unresponsive Docusate Sodium 100 mg 02/02/25 20:54 Docusate Sod 100 Mg Capsule PO 03/04/25 20:53 QDAY PRN CONSTIPATION Protocol Glucagon 1 mg 02/02/25 20:54 Glucagon Inj 1 Mg Vial IM Q15MIN PRN BG <70, and no IV access Heparin Sodium (Porcine) 5,000 unit 02/03/25 09:00 02/05/25 09:00 Heparin Sod Inj 5000 Unit/Ml Vial SC 02/17/25 08:59 Not Given Q12HR [facility] Insulin Human Lispro 0 unit 02/03/25 07:30 02/05/25 12:17 Insulin Lispro (Admelog) 1 Unit/0.01 Ml Unit SC 03/05/25 07:29 4 unit AC [facility] Administration Protocol Montelukast Sodium 10 mg 02/05/25 09:30 02/05/25 10:09 Montelukast Sodium 10 Mg Tablet PO 03/07/25 09:29 10 mg QDAY [facility] Administration Ondansetron HCl 4 mg 02/02/25 20:54 Ondansetron Inj 2 Mg/Ml Inj 2 Ml IVP 03/04/25 20:53 Q6H PRN NAUSEA OR VOMITING Protocol Potassium Phos/Sodium Phos 1 packet 02/04/25 11:00 02/05/25 09:21 Naph,[facility] Mbdb 1 Packet (1.5 Gm) PO 03/06/25 10:59 1 packet BID JASVIR Administration Sennosides 1 tab 02/02/25 20:54 Senna Tablet PO 03/04/25 20:53 QDAY PRN constipation Protocol Zinc Sulfate 220 mg 02/04/25 14:45 02/05/25 09:21 Zinc Sulfate 220 Mg Capsule PO 02/19/25 14:44 220 mg QDAY JASVIR Administration Plan 59-year-old female with past medical history of 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 S/p left second toe I&D (02/03) and amputation (02/05). #Sepsis 2/2 Osteomyelitis - resolving #Osteomyelitis of 2nd and 3rd digits of left foot SIRS positive with tachycardia, fever. Patient SIRS positive with tachycardia, fever one but not septic (sofa score 1). Foot x-ray: extensive osteomyelitis including proximal phalanges second and third digits and middle phalanx third digit. ESR 40 --> 76, CRP 22.2 --> 17.8, increase in ESR likely from surgery. Lactic acid normalized 2.9 --> 0.9. Pro-Sony negative. Given 3L on IVF bolus at ED. Fever improved with Tylenol. General Surgery - Dr. Espinal - performed I&D for left second toe blister on 02/03. Amputation for left second toe performed on 02/05. Plan: - D/C Vancomycin and Zosyn - Continue Augmentin BID for 3 months, monthly labs advised per Dr. Sparks. - Continue with wound care - Dr. Espinal recommends daily packing changes. - Monitor for signs of sepsis. - Continue to monitor ESR and CRP for antibiotic response. - Zinc and vitamin C x14 days to promote wound healing. - Physical therapy referral placed. #Insulin-dependent diabetes with polyneuropathy (poorly controlled) #Hyperglycemia - resolved Patient has history of diabetes, takes 10 units Tresiba daily, with Humalog sliding scale. Glucose 596 in ED and received 6 point units regular insulin. Plan: - ISS step two. - Resume home Tresiba at 10 units daily, patient's son will bring needles from home as the hospital does not have the proper needles for Tresiba. - Resume home gabapentin 800 3 times daily for polyneuropathy. - Every 6 hours glucose checks due to n.p.o. #MATTY, likely prerenal (resolved) Creatinine 1.1 --> 1.5 --> 1.1 EGFR is 40 --> 58. Received 1 L bolus normal saline, 1 L bolus lactated Ringer's. Plan - Avoid nephrotoxic medications. - Renally dose meds as necessary. - Monitor daily labs. - Ensure adequate hydration. #Hypophosphatemia (resolved) #Hypomagnesemia #Pseudohyponatremia Phosphorus 1.7 --> 2.8 Magnesium 1.0 --> 2.2 --> 1.9 --> 1.5 Plan: - Repletion as needed. #Allergic rhinitis / Nasal congestion Patient with a history of allergic rhinitis, currently experiencing nasal congestion. Takes montelukast at home daily with reported benefit. No signs of acute sinusitis or secondary infection at this time. Plan: - Continue montelukast 10 mg PO daily as home regimen. - Monitor for any signs of worsening congestion, sinus pressure, or infection. #History of seizure, following brain tumor resection Patient reports at least 1 seizure following a resection of a brain tumor, been asymptomatic since then. Currently not on any medications for seizures. Plan: - Seizure precautions #Chronic normocytic anemia #Peripheral artery disease Plan: Continue follow-up with PCP to obtain referral for vascular surgery. Patient will need further workup. Health Maintenance: DVT prophylaxis: Heparin SC BID GI prophylaxis: None Diet: Carb consistent diet Lines: Peripheral IV Code status: Full code Patient plan of care was discussed with the senior resident, Dr. Tim Bonner, and attending physician, Dr. Buchanan. Ruth Greco DO PGY-1 Attending Provider Attestation/Addendum I have examined the patient, reviewed labs and imaging findings, discussed the case with the resident(s), and reviewed entered orders. I agree with the plan of care as outlined in this note. Dr. Chanel MD
--- NOTE | 2025-02-05 20:30 | PC.NURSE ---
notified Dr. Ventura about patient's BS [id number] to place order.
[2025-02-05] MEDS: HEPARIN SOD INJ 5000 UNIT/ML VIAL SC (21:23)
[2025-02-05] MEDS: TRESIBA 200 UNIT/ML SC (21:24)
[2025-02-06] VITALS (8 sets, daily range): BP systolic 115–161; BP diastolic 62–84; PULSE 65–78; RESP 16–97; TEMP 36.1–36.9; O2SAT 94–99
[2025-02-06] MEDS: ASCORBIC ACID 250 MG TABLET 500 MG PO ×4 (00:27→21:10)
[2025-02-06] MEDS: HYDROcodone/APAP 5/325 TABLET 1 TAB PO ×3 (00:27→20:41)
[2025-02-06] MEDS: GABAPENTIN 800 MG PO ×4 (00:28→21:10)
[2025-02-06 05:11] LABS: Basophils # (Auto) 0.0 Thou/mm3 (0.0-0.2); Basophils % (Auto) 0 % (0-2.5); Eosinophils # (Auto) 0.0 Thou/mm3 (0.0-0.5); Eosinophils % (Auto) 0 % (0-10); Hematocrit 27.9 % (36.0-46.0); Hemoglobin 9.3 g/dL (12.0-16.0); Immature Granulocytes Auto 0.56 Thou/mm3 (0.00-0.00); Lymphocytes # (Auto) 1.3 Thou/mm3 (1.0-4.8); Lymphocytes % (Auto) 8 % (10-50); Mean Corpuscular HGB Conc 33.3 g/dl (31.0-37.0); Mean Corpuscular Hemoglobin 27.7 pg (25.0-35.0); Mean Corpuscular Volume 83 fL (80-100); Monocytes # (Auto) 0.8 Thou/mm3 (0.0-0.8); Monocytes % (Auto) 5 % (0-12); Neutrophils # (Auto) 13.6 Thou/mm3 (1.8-7.7); Neutrophils % (Auto) 84 % (37-80); Nucleated Red Blood Cell # 0.00 Thou/mm3 (0.00-0.00); Nucleated Red Blood Cell % 0 /100 WBC (0); Platelet Count 485 Thou/mm3 (140-440); RDW Standard Deviation 39.1 fL (36.4-46.3); Red Blood Count 3.36 Miln/mm3 (4.00-5.20); White Blood Count 16.2 Thou/mm3 (3.6-11.0)
[2025-02-06 05:28] LABS: Glucose Estimated Average 235 mg/dL (80-131); Hemoglobin A1C 9.8 % Hgb (4.8-6.0)
[2025-02-06 05:35] LABS: Alanine Aminotransferase 16 U/L (10-49); Albumin, Serum 3.8 gm/dL (3.5-5.0); Albumin/Globulin Ratio 1.5 (1.2-2.2); Alkaline Phosphatase 99 U/L (46-116); Anion Gap 9 (7-16); Aspartate Amino Transferase 14 U/L (0-34); BUN/Creatinine Ratio 18 Ratio (12-20); Bilirubin,Total 0.3 mg/dL (0.3-1.2); Blood Urea Nitrogen 16 mg/dL (9-23); Calcium 9.0 mg/dL (8.3-10.6); Calcium (Corrected) 9.2 mg/dL (8.5-10.1); Carbon Dioxide 28.8 mMol/L (20.0-31.0); Chloride 95 mMol/L (98-107); Creatinine (Component) 0.9 mg/dL (0.6-1.3); Estimated Creatinine Clearance 63.2 mL/min (>60); Globulin 2.6 gm/dL (2.3-3.5); Glucose 340 mg/dL (74-106); Magnesium 2.1 mg/dL (1.6-2.6); Osmolality,Calculated 280 (275-295); Phosphorous 3.5 mg/dL (2.4-5.1); Potassium 4.6 mMol/L (3.4-5.1); Sodium 133 mMol/L (136-145); Total Protein 6.4 gm/dL (5.7-8.2); eGFR > 60 See Note
[2025-02-06] MEDS: INSULIN LISPRO (AdmeLOG) 1 UNIT/0.01 ML UNIT SC ×3 (07:46→16:54)
[2025-02-06] MEDS: MONTELUKAST SODIUM 10 MG TABLET PO (08:26)
[2025-02-06] MEDS: ZINC SULFATE 220 MG CAPSULE PO (08:26)
[2025-02-06] MEDS: HEPARIN SOD INJ 5000 UNIT/ML VIAL SC (08:26)
[2025-02-06] MEDS: AMOXICILLIN/POT CLAV 875 TABLET 1 TAB PO ×2 (08:26→20:30)
[2025-02-06] MEDS: NAPH,KPH MBDB 1 PACKET (1.5 GM) PO ×2 (08:26→20:30)
--- NOTE | 2025-02-06 12:57 | PD.SURPROG ---
Documentation for date of: 02/06/25 Subjective Subjective Brief History: 59F with DMII on insulin with neuropathy, treated for osteomyelitis of the left second toe in July 2024 and again in December 2024, presenting with left foot swelling and pain. Patient reports the pain worsened yesterday prompting her to seek care in ER, she underwent foot x-ray showing extensive osteomyelitis of the 2nd and 3rd toes Patient states for the last few days her blood sugars were 400+ at home, she was feeling malaise and having anorexia. Today her blood sugars have been in the high 200s PMH: DMII, seizures, brain tumor PSH: Crnniotomy with resection of brain tumor, Csection, I&D of left foot abscess, amputation of R 2nd toe Meds: No antiplatelet or anticoagulation Allergies: Lantus, bacitracin, honey, neomycin, sucralose Narrative: Pt reports feeling well overall, minimal pain to the left foot in the setting of neuropathy, WBC 16, finger sticks elevated Exam Vital Signs Temp Pulse Resp BP Pulse Ox O2 Del Method O2 Flow Rate 96.9 F 73 16 158/84 H 98 Room Air 4 02/06/25 12:02/06/25 12:02/06/25 12:02/06/25 12:02/06/25 12:02/06/25 12:00 02/05/25 08:29 Constitutional Constitutional: no acute distress Routine Respiratory Exam Respiratory: Present no resp distress Routine Extremities Exam Comments: left second toe wound bed with minimal pus expressed upon deep palpation of the distal foot, and pus expressed from the plantar surface open wound. No necrotic tissue and no active bleeding Results Results: Laboratory Laboratory results: results reviewed Assessment & Plan Plan 59F with DMII on insulin with neuropathy, treated for osteomyelitis of the left second toe in July 2024 and again in December 2024, presenting with left foot swelling and pain and x-ray findings of extensive osteomyelitis of the left 2nd and 3rd toes now s/p left 2nd toe amputation, gradually recovering though with ongoing purulent drainage from the plantar surface of the foot and some pus expressable from the dorsum of the foot Daily dressing changes with Dakins solution Refer to wound healing Will f/u as outpt in 2 weeks PROCEDURES: Procedures Amputation of left second toe
[2025-02-06] MEDS: SOD HYPOCHLORITE 1/4 STR 473 ML BTL IRRIG ×2 (13:23→20:41)
--- NOTE | 2025-02-06 13:27 | PD.IDPROG ---
Subjective Subjective Interval history: prior rx noted. re treating dose not make sense. dm tonrrol essential to outcome Exam Vital Signs Temp Pulse Resp BP Pulse Ox O2 Del Method O2 Flow Rate 96.9 F 73 16 158/84 H 98 Room Air 4 02/06/25 12:00 02/06/25 12:00 02/06/25 12:00 02/06/25 12:00 02/06/25 12:00 02/06/25 12:00 02/05/25 08:29 Narrative Exam limited visit today Objective - Internal Medicine Labs 02/06/25 04:23 02/06/25 04:23 Labs: Laboratory Results - last 24 hr 02/06/25 04:23 WBC 16.2 H RBC 3.36 L Hgb 9.3 L Hct 27.9 L MCV 83 MCH 27.7 MCHC 33.3 RDW Std Deviation 39.1 Plt Count 485 H D Neut % (Auto) 84 H Lymph % (Auto) 8 L [place] % (Auto) 5 Eos % (Auto) 0 Baso % (Auto) 0 Neut # (Auto) 13.6 H Lymph # (Auto) 1.3 [place] # (Auto) 0.8 Eos # (Auto) 0.0 Baso # (Auto) 0.0 Immature Gran # (Auto) 0.56 H Absolute Nucleated RBC 0.00 Immature Gran % 4 H Nucleated RBC % 0 Sodium 133 L Potassium 4.6 D Chloride 95 L Carbon Dioxide 28.8 Anion Gap 9 BUN 16 Creatinine 0.9 Estim Creat Clear Calc 63.2 eGFR > 60 BUN/Creatinine Ratio 18 Glucose [address] Glu mg/dL 235 H Hemoglobin A1c 9.8 H Calculated Osmolality 280 Calcium 9.0 Corrected Calcium 9.2 Phosphorus 3.5 Magnesium 2.1 Total Bilirubin 0.3 AST 14 ALT 16 Alkaline Phosphatase 99 D Total Protein 6.4 Albumin 3.8 Globulin 2.6 Albumin/Globulin Ratio 1.5 Assessment & Plan A&P Narrative osteo L foot, chronic dm II. control not great, follows at [facility] not [facility] hx of brain tumor, resected replace doxy with augmentin for 3 mo f/u with vascular for arteriogrm and see primary for dm control. will likely see again prn, she was treated before,so re treating her is problemstic note that primary may have to prescribe the abx if youdo not as I can not see ptts in clinic timely Time Spent With Patient Time: Total time spent is greater than 50% in coordination of care (as documented) at patient's floor/unit and/or counseling patient:
--- NOTE | 2025-02-06 15:13 | ESPR_ITS ---
<Statement entered by Jonathan Bonner MD - 02/06/25 23:19> Patient was examined and case was reviewed with team including attending physician. Note reviewed, I agree with most of its contents and agree with the patient's care as documented by Dr. Greco Patient seen today at the bedside found awake, alert, orientedx3. No overnight events reported. Vital signs stable at this time. Tresiba dose adjusted for tighter blood sugar control. Currently on Augmentin for 3 months for treatment of osteomyelitis as per ID reccomendations. General surgery recommends Daily dressing changes, wound care ordered. Possible discharge. Case discussed with my attending Dr. Chanel Bonner MD PGY-2 Documentation for date of: 02/06/25 Subjective Subjective Interval history: Overnight, the patient?s blood glucose increased to 340. Pharmacy was consulted regarding the patient?s home insulin regimen. The patient had brought in her Tresiba from home. Per pharmacy review, her home dose is 15 units, whereas she was receiving only 10 units inpatient. Tresiba was increased to 15 units, and glucose levels will be monitored for response. The patient was seen at the bedside today. She reported no pain in the left foot. She was updated regarding the change in her Tresiba dosing. The patient also noted that her meal yesterday had more carbs than she is use to. Her diet has been adjusted from carb-consistent to carb-consistent low. Exam Vital Signs Temp Pulse Resp BP Pulse Ox O2 Del Method O2 Flow Rate 96.9 F 73 16 158/84 H 98 Room Air 4 02/06/25 12:02/06/25 12:02/06/25 12:02/06/25 12:02/06/25 12:02/06/25 12:02/05/25 08:29 Narrative Exam Physical Exam General: Awake and in no acute distress. Conversational and non-toxic appearing. HEENT: Normocephalic, atraumatic, mucous membranes moist. Heart: Regular rate and rhythm, no murmurs. Lungs: Clear to auscultation with no wheezing or crackles. Abdomen: Soft, nondistended, nontender. No guarding or rebound tenderness. Neurologic: Alert and oriented x3, no gross neurological deficit, and patient able to move all 4 extremities. Extremities: Left foot covered with gauze. Decrease sensation in bilateral lower extremities. Right foot has four toes - one was amputated. Psych: appropriate mood and affect. Objective Labs 02/07/25 04:39 02/07/25 04:39 Labs: Laboratory Results - last 24 hr 02/06/25 04:23 WBC 16.2 H RBC 3.36 L Hgb 9.3 L Hct 27.9 L MCV 83 MCH 27.7 MCHC 33.3 RDW Std Deviation 39.1 Plt Count 485 H D Neut % (Auto) 84 H Lymph % (Auto) 8 L [place] % (Auto) 5 Eos % (Auto) 0 Baso % (Auto) 0 Neut # (Auto) 13.6 H Lymph # (Auto) 1.3 [place] # (Auto) 0.8 Eos # (Auto) 0.0 Baso # (Auto) 0.0 Immature Gran # (Auto) 0.56 H Absolute Nucleated RBC 0.00 Immature Gran % 4 H Nucleated RBC % 0 Sodium 133 L Potassium 4.6 D Chloride 95 L Carbon Dioxide 28.8 Anion Gap 9 BUN 16 Creatinine 0.9 Estim Creat Clear Calc 63.2 eGFR > 60 BUN/Creatinine Ratio 18 Glucose [address] Glu mg/dL 235 H Hemoglobin A1c 9.8 H Calculated Osmolality 280 Calcium 9.0 Corrected Calcium 9.2 Phosphorus 3.5 Magnesium 2.1 Total Bilirubin 0.3 AST 14 ALT 16 Alkaline Phosphatase 99 D Total Protein 6.4 Albumin 3.8 Globulin 2.6 Albumin/Globulin Ratio 1.5 Quality Measures Quality Measures VTE prophylaxis Assessment & Plan Assessment Current Active Medications: Generic Name Dose Route Start Last Admin Trade Name Carey PRN Reason Stop Dose Admin Acetaminophen 650 mg 02/02/25 20:54 02/03/25 07:33 Acetaminophen 325 Mg Tablet PO 03/04/25 20:53 650 mg Q6H PRN Administration Fever >100.4 or pain Protocol Hydrocodone Bitart/Acetaminophen 1 tab 02/02/25 20:54 02/06/25 13:26 Hydrocodone/Apap 5/325 Tablet PO 02/07/25 20:53 1 tab Q4HR PRN Administration PAIN SCALE 4-10(Mod-Sev Amoxicillin/Clavulanate Potassium 1 tab 02/04/25 21:00 02/06/25 08:26 Amoxicillin/Pot Clav 875 Tablet PO 02/11/25 20:59 1 tab BID JASVIR Administration Ascorbic Acid 500 mg 02/04/25 15:00 02/06/25 13:22 Ascorbic Acid 250 Mg Tablet PO 03/06/25 14:59 500 mg TID JASVIR Administration Pom - Gabapentin 800 0 ea 02/03/25 22:00 02/06/25 13:23 Mg Tablet PO 03/05/25 21:59 1 tablet TID JASVIR Administration Protocol Tresiba Flextouch 0 ea 02/06/25 21:00 200 Unit/Ml SC 03/08/25 20:59 HS JASVIR Protocol Dextrose 25 ml 02/02/25 20:54 Dextrose 50%-Water Inj 50 Ml Syringe IV 03/04/25 20:53 Q15MIN PRN BG 50-70 responsive npo pt Dextrose 50 ml 02/02/25 20:54 Dextrose 50%-Water Inj 50 Ml Syringe IV 03/04/25 20:53 Q15MIN PRN BG <50 OR BG <70 & pt unresponsive Docusate Sodium 100 mg 02/02/25 20:54 Docusate Sod 100 Mg Capsule PO 03/04/25 20:53 QDAY PRN CONSTIPATION Protocol Glucagon 1 mg 02/02/25 20:54 Glucagon Inj 1 Mg Vial IM Q15MIN PRN BG <70, and no IV access Heparin Sodium (Porcine) 5,000 unit 02/03/25 09:00 02/06/25 08:26 Heparin Sod Inj 5000 Unit/Ml Vial SC 02/17/25 08:59 5,000 unit Q12HR JASVIR Administration Insulin Human Lispro 0 unit 02/03/25 07:30 02/06/25 11:41 Insulin Lispro (Admelog) 1 Unit/0.01 Ml Unit SC 03/05/25 07:29 4 unit AC JASVIR Administration Protocol Montelukast Sodium 10 mg 02/05/25 09:30 02/06/25 08:26 Montelukast Sodium 10 Mg Tablet PO 03/07/25 09:29 10 mg QDAY JASVIR Administration Ondansetron HCl 4 mg 02/02/25 20:54 Ondansetron Inj 2 Mg/Ml Inj 2 Ml IVP 03/04/25 20:53 Q6H PRN NAUSEA OR VOMITING Protocol Potassium Phos/Sodium Phos 1 packet 02/04/25 11:00 02/06/25 08:26 Naph,Kph Mbdb 1 Packet (1.5 Gm) PO 03/06/25 10:59 1 packet BID JASVIR Administration Sennosides 1 tab 02/02/25 20:54 Senna Tablet PO 03/04/25 20:53 QDAY PRN constipation Protocol Sodium Hypochlorite 473 ml 02/06/25 12:00 02/06/25 13:23 Sod Hypochlorite 1/4 Str 473 Ml Btl IRRIG 03/08/25 11:59 1 applicatio BID JASVIR Administration Zinc Sulfate 220 mg 02/04/25 14:45 02/06/25 08:26 Zinc Sulfate 220 Mg Capsule PO 02/19/25 14:44 220 mg QDAY JASVIR Administration Plan 59-year-old female with past medical history of 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 S/p left second toe I&D (02/03) and amputation (02/05). #Sepsis 2/2 Osteomyelitis - resolving #Osteomyelitis of 2nd and 3rd digits of left foot SIRS positive with tachycardia, fever. Patient SIRS positive with tachycardia, fever one but not septic (sofa score 1). Foot x-ray: extensive osteomyelitis including proximal phalanges second and third digits and middle phalanx third digit. ESR 40 --> 76, CRP 22.2 --> 17.8, increase in ESR likely from surgery. Lactic acid normalized 2.9 --> 0.9. Pro-Sony negative. Given 3L on IVF bolus at ED. Fever improved with Tylenol. General Surgery - Dr. Espinal - performed I&D for left second toe blister on 02/03. Amputation for left second toe performed on 02/05. Foot wound culture: Strep agalactiae Plan: - D/C Vancomycin and Zosyn - Continue Augmentin BID for 3 months, monthly labs advised, f/u with vascular arteriogram per Dr. Sparks. - Continue with wound care - Dr. Espinal recommends daily dressing changes with Dakins solution. Follow-up as outpatient with Dr. Espinal in 2 weeks. - Monitor for signs of sepsis. - Continue to monitor ESR and CRP for antibiotic response. - Zinc and vitamin C x14 days to promote wound healing. - Physical therapy referral placed. #Insulin-dependent diabetes with polyneuropathy (poorly controlled) #Hyperglycemia Patient has history of diabetes, takes 10 units Tresiba daily, with Humalog sliding scale. Glucose 596 in ED and received 6 point units regular insulin. Plan: - ISS step two. - Resume Tresiba at 15 units daily, patient's son will bring needles from home as the hospital does not have the proper needles for Tresiba. - Resume home gabapentin 800 3 times daily for polyneuropathy. - Every 6 hours glucose checks due to n.p.o. #MATTY, likely prerenal (resolved) Creatinine 1.1 --> 1.5 --> 1.1 EGFR is 40 --> 58. Received 1 L bolus normal saline, 1 L bolus lactated Ringer's. Plan - Avoid nephrotoxic medications. - Renally dose meds as necessary. - Monitor daily labs. - Ensure adequate hydration. #Hypophosphatemia (resolved) #Hypomagnesemia (resolved) #Pseudohyponatremia Phosphorus 1.7 --> 2.8 Magnesium 1.0 --> 2.2 --> 1.9 --> 1.5 --> 2.1 Plan: - Repletion as needed. #Allergic rhinitis / Nasal congestion Patient with a history of allergic rhinitis, currently experiencing nasal congestion. Takes montelukast at home daily with reported benefit. No signs of acute sinusitis or secondary infection at this time. Plan: - Continue montelukast 10 mg PO daily as home regimen. - Monitor for any signs of worsening congestion, sinus pressure, or infection. #History of seizure, following brain tumor resection Patient reports at least 1 seizure following a resection of a brain tumor, been asymptomatic since then. Currently not on any medications for seizures. Plan: - Seizure precautions #Chronic normocytic anemia #Peripheral artery disease Plan: Continue follow-up with PCP to obtain referral for vascular surgery. Patient will need further workup. Health Maintenance: Disposition: Plan is to discharge once surgical clearance is obtained and the patient?s blood glucose is adequately controlled. DVT prophylaxis: Heparin SC BID GI prophylaxis: None Diet: Carb consistent low Lines: Peripheral IV Code status: Full code Patient plan of care was discussed with the senior resident, Dr. Tim Bonner, and attending physician, Dr. Buchanan. Ruth Greco, DO PGY-1 Attending Provider Attestation/Addendum I have examined the patient, reviewed labs and imaging findings, discussed the case with the resident(s), and reviewed entered orders. I agree with the plan of care as outlined in this note, with these additional summaries/recommendations: Patient seen at bedside. No acute overnight events. Patient is postoperative day #1 status post amputation of left second toe. General surgery following. Continue daily dressing changes with Dakin's solution. Continue antibiotics. Blood cultures show no growth at 48 hours and wound culture grew strep group B strep. Leukocytosis persistent although overall improving. Patient has significant hyperglycemia today with blood sugars into the 300s and 400s. We will aggressively adjust basal bolus insulin regimen and change diet to low carb. Patient was seen by physical therapy although refused home health. Repeat hematology and chemistry panel in AM. Anticipate discharge in the next 24 to 48 hours. Please see residents note for additional details and management. Dr. Chanel MD
--- NOTE | 2025-02-06 15:42 | PC.SS ---
SS follow up note; Blood sugars being monitored. Patient will discharge home tomorrow.
[2025-02-06] MEDS: TRESIBA 200 UNIT/ML SC (20:34)
[2025-02-07 04:00] VITALS: BP 111/56; PULSE 57; RESP 16; TEMP 37; O2SAT 97
[2025-02-07] MEDS: ASCORBIC ACID 250 MG TABLET 500 MG PO ×2 (05:03→13:46)
[2025-02-07] MEDS: GABAPENTIN 800 MG PO ×2 (05:04→13:46)
[2025-02-07 06:12] LABS: Basophils # (Auto) 0.0 Thou/mm3 (0.0-0.2); Basophils % (Auto) 0 % (0-2.5); Eosinophils # (Auto) 0.1 Thou/mm3 (0.0-0.5); Eosinophils % (Auto) 1 % (0-10); Hematocrit 25.4 % (36.0-46.0); Immature Granulocytes Auto 0.57 Thou/mm3 (0.00-0.00); Lymphocytes # (Auto) 2.8 Thou/mm3 (1.0-4.8); Lymphocytes % (Auto) 24 % (10-50); Mean Corpuscular HGB Conc 33.5 g/dl (31.0-37.0); Mean Corpuscular Hemoglobin 27.8 pg (25.0-35.0); Mean Corpuscular Volume 83 fL (80-100); Monocytes # (Auto) 0.9 Thou/mm3 (0.0-0.8); Monocytes % (Auto) 8 % (0-12); Neutrophils # (Auto) 7.1 Thou/mm3 (1.8-7.7); Neutrophils % (Auto) 61 % (37-80); Nucleated Red Blood Cell # 0.00 Thou/mm3 (0.00-0.00); Nucleated Red Blood Cell % 0 /100 WBC (0); Platelet Count 398 Thou/mm3 (140-440); RDW Standard Deviation 40.0 fL (36.4-46.3); Red Blood Count 3.06 Miln/mm3 (4.00-5.20); White Blood Count 11.6 Thou/mm3 (3.6-11.0)
[2025-02-07 06:15] LABS: Hemoglobin 8.5 g/dL (12.0-16.0)
[2025-02-07 06:57] LABS: Alanine Aminotransferase 12 U/L (10-49); Albumin, Serum 3.6 gm/dL (3.5-5.0); Albumin/Globulin Ratio 1.5 (1.2-2.2); Alkaline Phosphatase 71 U/L (46-116); Anion Gap 8 (7-16); Aspartate Amino Transferase 12 U/L (0-34); BUN/Creatinine Ratio 20 Ratio (12-20); Bilirubin,Total 0.2 mg/dL (0.3-1.2); Blood Urea Nitrogen 20 mg/dL (9-23); Calcium 9.3 mg/dL (8.3-10.6); Calcium (Corrected) 9.6 mg/dL (8.5-10.1); Carbon Dioxide 28.6 mMol/L (20.0-31.0); Chloride 100 mMol/L (98-107); Creatinine (Component) 1.0 mg/dL (0.6-1.3); Estimated Creatinine Clearance 56.9 mL/min (>60); Globulin 2.4 gm/dL (2.3-3.5); Glucose 218 mg/dL (74-106); Magnesium 1.9 mg/dL (1.6-2.6); Osmolality,Calculated 283 (275-295); Phosphorous 3.7 mg/dL (2.4-5.1); Potassium 4.2 mMol/L (3.4-5.1); Sodium 137 mMol/L (136-145); Total Protein 6.0 gm/dL (5.7-8.2); eGFR > 60 See Note
[2025-02-07] MEDS: INSULIN LISPRO (AdmeLOG) 1 UNIT/0.01 ML UNIT SC (07:35)
[2025-02-07 08:00] VITALS: BP 114/67; PULSE 62; RESP 17; TEMP 36.2; O2SAT 97
[2025-02-07] MEDS: HYDROcodone/APAP 5/325 TABLET 1 TAB PO ×2 (08:25→14:20)
[2025-02-07] MEDS: MONTELUKAST SODIUM 10 MG TABLET PO (08:25)
[2025-02-07] MEDS: ZINC SULFATE 220 MG CAPSULE PO (08:26)
[2025-02-07] MEDS: AMOXICILLIN/POT CLAV 875 TABLET 1 TAB PO (08:26)
[2025-02-07] MEDS: NAPH,KPH MBDB 1 PACKET (1.5 GM) PO (08:27)
[2025-02-07] MEDS: SOD HYPOCHLORITE 1/4 STR 473 ML BTL IRRIG (08:31)
[2025-02-07 11:56] VITALS: BP 114/66; PULSE 62; RESP 18; TEMP 36.1; O2SAT 98
--- NOTE | 2025-02-07 14:14 | ESDS_ITS ---
<Statement entered by Jonathan Bonner MD - 02/07/25 17:59> Patient was examined and case was reviewed with team including attending physician. Note reviewed, I agree with most of its contents and agree with the patient's care as documented by Dr. Angus Bonner MD PGY-2 Planned Discharge Date 02/07/25 DS: Providers Provider Date of admission: 02/02/25 20:54 Primary care physician: Physician No Primary/Family Admitting Provider: Nighat Yeung MD Attending Provider on Admission: Fredrick Buchanan MD Consults: 02/02/25 18:32 Consult to General Surgery Stat Comment: Diabetic foot gangrene Consulting Provider: Jackelin Espinal 02/02/25 22:10 Consult to Infectious Diseases Routine Comment: Osteo of Left toes Consulting Provider: Abel Sparks 02/03/25 17:44 Consult to Infectious Diseases Urgent Comment: Osteomyelitis antibiotic recommendation Consulting Provider: Abel Sparks 02/03/25 18:02 Referral Wound Care Routine Comment: Daily packing changes for left second toe 02/05/25 10:34 Referral Physical Therapy Routine Comment: Physician Instructions: 02/06/25 15:48 Referral OP Wound Healing Dept Routine Comment: Left 2nd toe amputation and plantar foot abscess Attending Provider on DC: Fredrick Buchanan MD Discharging Provider: Ruth Greco DO Anticipated date of discharge: 02/07/25 DS: Diagnosis Problem List Completed Was Problem List Reviewed/Reconciled?: Yes Hospital Course Hospital Course Hospital course: 59-year-old female with past medical history of insuin-dependent diabetes mellitus with polyneuropathy, brain tumor s/p resection, seizure not on current treatment presented to ED on 02/02/2025 for evaluation of worsening left foot swelling, pain,m and a bloody-filled blister involving the second toe. Upon arrival, the patient met SIRS criteria and was treated empirically for sepsis with IV fluids, vancomycin, and Zosyn. A foot X-ray confirmed osteomyelitis involving the proximal phalanges of the 2nd and 3rd toes. She was admitted and received further fluid resuscitation, glycemic control with basal-bolus insulin, and electrolyte replacement for low phosphorus and magnesium. General Surgery was consulted and performed an I&D on hospital day 2. Due to ongoing necrosis and purulent drainage, she underwent surgical amputation of the left second toe on hospital day 4. Antibiotics were de-escalated to Augmentin following ID consultation, with a recommended course of 3 months and monthly monitoring labs. Post-operatively, she remained afebrile, and her WBC and lactic acid normalized. Her renal function improved with hydration. Glucose was managed with continuation of her home Tresiba regimen and sliding scale insulin. Diabetic education was initiated. She remained hemodynamically stable with no further signs of infection. Pain was well controlled, and she was able to tolerate a regular diet. Discharge planning included coordination with wound care, physical therapy, and outpatient follow-up with her PCP and vascular surgery for PAD. Patient is medically and physically stable for discharge. Diagnosis: #Osteomyelitis of the 2nd and 3rd digits of the left foot #Sepsis secondary to osteomyelitis #Status-post left second toe amputation #Insulin-dependent diabetes mellitus with polyneuropathy, poorly controlled #Hyperglycemia #Acute kidney injury, likely prerenal #Hypophosphatemia #Hypomagnesemia #Psudohyponatremia #Allergic rhinitis #History of seizure #Chronic normocytic anemia #Peripheral artery disease #Brain tumor status post resection Discharge Plan: Follow up with your primary care physician within 1 week of discharge. Please continue blood sugar control to promote wound healing. Follow up with Dr. Espinal in 2 weeks. [address] [facility], [address]. The office staff will call you to make an appointment. If you need to reschedule please call [phone]. Follow up with [facility], [address] [place] [address]. Call [phone] for appointment. Cover your foot and shower daily. After showering change dressing. Ambulate using heel of your foot only. Elevate on 2 pillows above heart level while in bed or sitting down to help with swelling. Wound care to left foot. - Wash hands and remove old dressing, including strip packing from 2nd toe and bottom of foot. - Irrigate wounds with either Dakins solution or Normal saline. - Pat dry with gauze. - Wash hands again. - Pack wound over 2nd toe starting at the tunneling towards patients head than fill in remaining cavity. Also pack wound to base of foot until resistance is felt and cavity is full. - Cover both wounds with dry gauze and secure with gauze roll. If active bleeding occurs, apply tight dressing and return to MD or ER. - Notify primary doctor or return to Emergency Room if any of the following: - Fever above 100.6? F. - Increased pain. - Increase swelling. - Red streaks around your wound. - Drainage becomes foul smelling or changes color. - The wound is larger or deeper. - The wound looks dried out or dark. - Bleeding that does not stop with holding pressure. Should your symptoms recur or worsen patient is instructed to return to the ED. Case discussed with my senior resident Dr. Tim Bonner and my attending Dr. Buchanan. Ruth Greco, DO Status at Discharge Overall status at discharge: patient is back to baseline Time Spent with Patient Time attestation: Total time spent providing and/or coordinating discharge services: Time spent: Greater than 30 minutes Exam Vital Signs Temp Pulse Resp BP Pulse Ox O2 Del Method O2 Flow Rate 97 F 62 18 114/66 98 Room Air 4 02/07/25 11:56 02/07/25 11:56 02/07/25 11:56 02/07/25 11:56 02/07/25 11:56 02/07/25 11:56 02/05/25 08:29 Narrative Exam Physical Exam General: Awake and in no acute distress. Conversational and non-toxic appearing. HEENT: Normocephalic, atraumatic, mucous membranes moist. Heart: Regular rate and rhythm, no murmurs. Lungs: Clear to auscultation with no wheezing or crackles. Abdomen: Soft, nondistended, nontender. No guarding or rebound tenderness. Neurologic: Alert and oriented x3, no gross neurological deficit, and patient able to move all 4 extremities. Extremities: Left foot covered with gauze. Decrease sensation in bilateral lower extremities. Right foot has four toes - one was amputated. Psych: appropriate mood and affect. Discharge Plan Plan Patient Disposition: HOME (Self Care) Care Plan Goals: Follow up with your primary care physician within 1 week of discharge Please continue blood sugar control to promote wound healing Follow up with Dr. Espinal in 2 weeks. [address] [facility], [address]. The office staff will call you to make an appointment. If you need to reschedule please call [phone]. Follow up with [facility], [address] [place] [address]. Call [phone] for appointment. Cover your foot and shower daily. After showering change dressing. Ambulate using heel of your foot only. Elevate on 2 pillows above heart level while in bed or sitting down to help with swelling. Wound care to left foot. -Wash hands and remove old dressing, including strip packing from 2nd toe and bottom of foot -Irrigate wounds with either Dakins solution or Normal saline. -Pat dry with gauze. -Wash hands again - Pack wound over 2nd toe starting at the tunneling towards patients head than fill in remaining cavity. Also pack wound to base of foot until reistiance is felt and cavity is full. - Cover both wounds with dry gauze and secure with gauze roll. If active bleeding occurs, apply tight dressing and return to MD or ER. ? Notify primary doctor or return to Emergency Room if any of the foll owing: ? Fever above 100.6? F. ? Increased pain ? Increase swelling ? Red streaks around your wound ? Drainage becomes foul smelling or changes color ? The wound is larger or deeper ? The wound looks dried out or dark ? Bleeding that does not stop with holding pressure Should your symptoms recur or worsen patient is instructed to return to the ED. Prescriptions/Referrals Prescriptions/Med Rec: New hydrocodone-acetaminophen 5-325 mg tablet 1 tab PO TID MDD 3 Qty: 10 0RF amoxicillin-pot clavulanate 875-125 mg tablet 1 tab PO BID 90 Days Qty: 180 0RF Continued gabapentin 800 mg Tablet 800 mg PO TID insulin lispro [Humalog KwikPen Insulin] 100 unit/mL insulin pen 10 unit SUBCUT 3XD Patient Comments: INJECT 10 UNITS SUBCUTANEOUSLY 3 TIMES A DAY insulin degludec [Tresiba FlexTouch U-200] 200 unit/mL (3 mL) insulin pen 15 unit SUBCUT QDAY Qty: 9 2RF Patient Comments: INJECT 10 UNITS SUBCUTANEOUSLY AT BEDTIME montelukast 10 mg tablet 10 mg PO QDAY Patient Comments: TAKE 1 TABLET BY MOUTH EVERY DAY Discontinued doxycycline hyclate 100 mg capsule 100 mg PO BID 42 Days Qty: 84 0RF Rx Instructions: Take 2 tablets daily for 6 week. Referrals: No Primary/Family,Physician [Primary Care Provider] - Patient/Caregiver Discharge Instructions Education Materials: Nutrition for Wound Healing, Changing Dressing Dc, Discharge Instructions Wound ..., Preventing Surgical Site Infections Print Language: Czech Stand Alone Forms: Sharron Award Info., Patient Portal Info Letter Discharge Order Discharge Orders: Discharge (Routine); Ordered 02/07/25 Ordered By: Jonathan Bonner Quality Discharge Quality Measures none MD Attestestation MD Attestation I have examined the patient, reviewed labs and imaging findings, discussed the case with the resident(s), and reviewed entered orders. I agree with the plan of care as outlined in this note. Time Spent [address] Chanel MD
== END 2025-02-07 14:45 | disposition home or self-care (01) | DRG 854 ==
LOC: SERX 19:54 → SERHOLD 21:41 → S3NX 22:32
PROVIDERS: Internal Medicine Infectious Disease; Nurse Practitioner Family; Student in an Organized Health Care Education/Training Program; Surgery; Admitting Provider Student in an Organized Health Care Education/Training Program; Emergency Provider Family Medicine; Visit Provider Student in an Organized Health Care Education/Training Program
PROC: (CPT 28820; principal; 2025-02-05 07:30)
DX: A41.9 Sepsis, unspecified organism (principal); E11.52 Type 2 diabetes mellitus with diabetic peripheral angiopathy with gangrene; N17.9 Acute kidney failure, unspecified; L02.612 Cutaneous abscess of left foot; I47.20 Ventricular tachycardia, unspecified; L03.116 Cellulitis of left lower limb; M86.672 Other chronic osteomyelitis, left ankle and foot; E11.42 Type 2 diabetes mellitus with diabetic polyneuropathy; E11.69 Type 2 diabetes mellitus with other specified complication; E11.65 Type 2 diabetes mellitus with hyperglycemia; E83.42 Hypomagnesemia; Z79.4 Long term (current) use of insulin; E83.39 Other disorders of phosphorus metabolism; S90.425A Blister (nonthermal), left lesser toe(s), initial encounter; E11.628 Type 2 diabetes mellitus with other skin complications; L08.9 Local infection of the skin and subcutaneous tissue, unspecified; E11.621 Type 2 diabetes mellitus with foot ulcer; J30.9 Allergic rhinitis, unspecified; L97.529 Non-pressure chronic ulcer of other part of left foot with unspecified severity; D49.6 Neoplasm of unspecified behavior of brain; R56.9 Unspecified convulsions; Z87.891 Personal history of nicotine dependence; Z88.8 Allergy status to other drugs, medicaments and biological substances
CPT/HCPCS: 36415; 71045; 80053; 80202; 81001; 83036; 83605; 83615; 83690; 83735; 83880; 84100; 84145; 84484; 85025; 85610; 85652; 85730; 86140; 87040; 87070; 87077; 87086; 87186; 87205; 87811; 93005; 93225; 93926; 94762; 96365; 96366; 97162; 99284; A4217; A4649; J1100; J1644; J1815; J2250; J2270; J2405; J2543; J2704; J3010; J3370; J3375; J3475; J3490; J7030; J7120; A9270

== ENCOUNTER → 2025-02-15 | Outpatient (CLI) | payer MEDICARE, MEDICAID, SELFPAY | END | disposition home or self-care (01) | LOC: SWHD 12:45 | PROVIDERS: PCP Student in an Organized Health Care Education/Training Program; Referring Provider Student in an Organized Health Care Education/Training Program; Visit Provider Student in an Organized Health Care Education/Training Program | DX: S91.302A Unspecified open wound, left foot, initial encounter (principal); X58.XXXA Exposure to other specified factors, initial encounter; T81.89XA Other complications of procedures, not elsewhere classified, initial encounter; E66.9 Obesity, unspecified; L03.90 Cellulitis, unspecified; M86.9 Osteomyelitis, unspecified; Z89.421 Acquired absence of other right toe(s); F41.9 Anxiety disorder, unspecified; I73.9 Peripheral vascular disease, unspecified; F17.200 Nicotine dependence, unspecified, uncomplicated; M06.9 Rheumatoid arthritis, unspecified; D64.9 Anemia, unspecified; E11.40 Type 2 diabetes mellitus with diabetic neuropathy, unspecified; Z79.4 Long term (current) use of insulin | CPT/HCPCS: 11042; 99213; A9270; G0463 ==

== ENCOUNTER 2025-02-18 11:12 | Outpatient (AMB) | payer MEDICARE, MEDICAID, SELFPAY ==
--- NOTE | 2025-02-18 11:30 | GSCOFFNT_ITS ---
Vital Signs - [facility] 02/18/25 11:35 Height 1.6 m Height Method Measured Weight 69.882 kg Weight Measurement Method Standing Scale BMI 27.3 BP 152/75 H Blood Pressure Source Automatic Cuff Blood Pressure Location Left Upper Arm Position Sitting Respiration 18 Pulse 81 Pulse Source Monitor Temp 98.2 F Temp Source Temporal Artery Scan Pulse Oximetry (%) 98 Oxygen Delivery Method Room Air Med/Allergies Allergies & Medications Allergies animal dander Allergy (Severe, Verified 02/18/25 11:37) Swelling of Lip/Tongue/Throat bacitracin Allergy (Severe, Verified 02/18/25 11:37) Blister honey Allergy (Severe, Verified 02/18/25 11:37) Swelling of Lip/Tongue/Throat neomycin (From Neosporin ([id number])) Allergy (Severe, Verified 02/18/25 11:37) Blister polymyxin B (From Neosporin ([id number])) Allergy (Severe, Verified 02/18/25 11:37) Blister sucralose (From Splenda (sucralose)) Allergy (Severe, Verified 02/18/25 11:37) Swelling of Lip/Tongue/Throat insulin glargine (From Lantus U-100 Insulin) Allergy (Intermediate, Verified 02/18/25 11:37) Redness of Skin Artificial Sweetener Allergy (Severe, Uncoded 02/18/25 11:37) Swelling of Lip/Tongue/Throat MA Intake Visit Data Collection New Patient or Established: Established Patient (seen at [facility] within 3 years) Seen by Clinical Staff ONLY (RN/MA): No Pain Present Currently: Yes Pain Location: Ankle Pain scale:: 5 Pain Scale Used: Velazquez-Valentine/Numerical Steamfitter Supervisor Required: No PCP or OBGYN visit in last 3 months: Yes Hx Now: No Do You Feel Safe at Home: Yes Authorities Contacted: N/A Smoking Status Smoking Status: Current every day smoker Cessation Counseling Provided: ROMEL was advised that quitting smoking is the single most important factor to protect the health of themselves and their family. Discussed the benefits of quitting smoking with patient. Encouraged patient to quit smoking and provided Cessation assistance materials and resources. Tobacco Use: Cigarette Years smoked: 42 Are you interested in quitting?: No Immunization / Flu Flu Vaccine in the Last 12 Months: No Flu Vaccine Exclusion Criteria: Refused by Patient Past Medical History Past Medical History NEUROLOGIC: Positive Neurological Disorders, Brain Tumor and Seizures CARDIAC: Positive Cardiac Disorders and Hypertension; Negative Congestive Heart Failure RESPIRATORY: Negative Chronic Obstructive Pulmonary Disease (COPD) or Asthma GASTROINTESTINAL: Negative Gastrointestinal Disorders GENITOURINARY: Negative Genitourinary Disorders or Renal Disease REPRODUCTIVE: Positive Previous Pregnancies MUSCULOSKELETAL: Positive Osteoporosis ENT: Positive Cataracts ENDOCRINE: Positive Endocrine Disorders, Diabetes Mellitus Type 2 and Hypothyroidism; Negative Diabetes Mellitus Type 1 HEMATOLOGIC: Negative Blood Disorders or Sickle Cell Disease PSYCHO/SOCIAL: Positive Anxiety OTHER HISTORY: Positive Blood Transfusions and Chicken Pox; Negative Hospitalization, Autoimmune Disease, Down Syndrome, Developmental Delay, Shingles, Falls, Blood Transfusion Reaction, Anesthesia Reactions, Organ Transplant or Cancer Family History FAMILY HISTORY: Positive Family Cardiac Disorders, Family Gastrointestinal Problems and Family Cancer; Negative Family Psychiatric Problems, Family Respiratory Disorders, Family Surgery or Family Anesthesia Reaction Surgical History SURGICAL: Negative Organ Transplant Social History SMOKING STATUS: Smoking status: Current every day smoker SECOND HAND EXPOSURE: second hand exposure: No ALCOHOL: Alcohol Intake: Never HOUSING: Housing: House LIVES WITH: Lives With: Family HPI HPI Narrative 59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 Patient reports she feels well overall, her sugars have been less than 200 and she has already been seen once at wound healing. Her pain tends to be at the ankle and it is manageable. Her son is caring for the wound according to instructions twice a day and she denies any fever or malaise, is walking on the heel of her left foot ROS Review of Systems Systems Reviewed: All systems reviewed, normal except as documented Objective/Exam General General Appearance: alert, cooperative and well groomed Resp Respiratory exam: Absent respiratory distress Extremities Extremities exam: Present other (Left second toe wound bed with fibrinous tissue at base, no erythema, no fluctuance or purulence. 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, treated for osteomyelitis of the left second toe in July 2024 and again in December 2024, now s/p left 2nd toe amputation 02/05, gradually recovering Plan: Appreciate wound healing recs Follow-up in 3 weeks Office Procedures GNS Level of Care Nursing/Assessment Patient Status: Established Patient Nursing Assessment/Reassesment: Medication Reconciliation, Update PMH in EMR and Vital Signs Coordination of Care: Complex Care and Chronic Disease 1-5, Consent,records obtained, informed consent, Education Simp Pt/Fam, Results/Orders obtained and Staff clarify orders Established Patient Charge Established Patient Point Assignment: 90 Established Patient Point Charge: EP Level 3 (80-115) Patient Portal Questionaires Social History Living Situation History Housing: House Housing Other:: pt lives with , son, and her mom Tobacco History Smoking Status: Current every day smoker Packs per Day: 1 Second Hand Smoke Exposure: No Alcohol History Alcohol Intake: Never Domestic Abuse History Do You Feel Safe at Home: Yes Review of Systems Report any current symptoms Only answer those that you have currently: Past Medical History Past Medical History Have you ever been diagnosed with any of the following: Neurological Problems Brain Tumor: Yes Seizures: Yes Cardiology Problems Congestive Heart Failure: No Hypertension: Yes Respiratory Problems Chronic Obstructive Pulmonary Disease (COPD): No Asthma: No Genital/Urinary Problems Renal Disease: No Reproductive Problems Previous Pregnancies: Yes Musculoskeletal Problems Osteoporosis: Yes Head,Eye,Nose,Throat Problems Cataracts: Yes Endocrine Problems Diabetes Mellitus Type 1: No Diabetes Mellitus Type 2: Yes Hypothyroidism: Yes Blood Problems Sickle Cell Disease: No Psychologic Problems Anxiety: Yes Other Problems Hospitalization: No Autoimmune Disease: No Down Syndrome: No Developmental Delay: No Shingles: No Falls: No Blood Transfusions: Yes Blood Transfusion Reaction: No Anesthesia Reactions: No Organ Transplant: No Chicken Pox: Yes Cancer: No
[2025-02-18 11:35] VITALS: BP 152/75; PULSE 81; RESP 18; TEMP 36.8; O2SAT 98; BMI 27.3
== END 2025-02-18 12:05 | disposition home or self-care (01) ==
LOC: HODSRG 11:12
PROVIDERS: Supervising Provider Surgery; Visit Provider Surgery
DX: Z47.81 Encounter for orthopedic aftercare following surgical amputation (principal); Z89.422 Acquired absence of other left toe(s); I10 Essential (primary) hypertension; E11.9 Type 2 diabetes mellitus without complications; E03.9 Hypothyroidism, unspecified
CPT/HCPCS: 99213; G0463

== ENCOUNTER → 2025-02-22 | Outpatient (CLI) | payer MEDICARE, MEDICAID, SELFPAY | END | disposition home or self-care (01) | LOC: SWHD 14:46 | PROVIDERS: PCP Nurse Practitioner Family; Referring Provider Nurse Practitioner Family; Visit Provider Surgery | DX: S91.302A Unspecified open wound, left foot, initial encounter (principal); X58.XXXA Exposure to other specified factors, initial encounter; T81.89XA Other complications of procedures, not elsewhere classified, initial encounter; E66.9 Obesity, unspecified; L03.90 Cellulitis, unspecified; Z89.421 Acquired absence of other right toe(s); M86.9 Osteomyelitis, unspecified; F41.9 Anxiety disorder, unspecified; I73.9 Peripheral vascular disease, unspecified; F17.200 Nicotine dependence, unspecified, uncomplicated; M06.9 Rheumatoid arthritis, unspecified; D64.9 Anemia, unspecified; E11.40 Type 2 diabetes mellitus with diabetic neuropathy, unspecified; Z79.4 Long term (current) use of insulin | CPT/HCPCS: 11042; A9270 ==

== ENCOUNTER 2025-03-11 10:21 | Outpatient (AMB) | payer MEDICARE, MEDICAID, SELFPAY ==
[2025-03-11 10:34] VITALS: BP 162/81; PULSE 84; RESP 16; TEMP 36.5; O2SAT 97; BMI 26.9
--- NOTE | 2025-03-11 10:34 | GSCOFFNT_ITS ---
Vital Signs - [facility] 03/11/25 10:34 Height 1.6 m Height Method Measured Weight 69.031 kg Weight Measurement Method Standing Scale BMI 26.9 BP 162/81 H Blood Pressure Source Automatic Cuff Blood Pressure Location Right Upper Arm Position Sitting Respiration 16 Pulse 84 Pulse Source Monitor Temp 97.7 F Temp Source Temporal Artery Scan Pulse Oximetry (%) 97 Oxygen Delivery Method Room Air Med/Allergies Allergies & Medications Allergies animal dander Allergy (Severe, Verified 03/11/25 10:35) Swelling of Lip/Tongue/Throat bacitracin Allergy (Severe, Verified 03/11/25 10:35) Blister honey Allergy (Severe, Verified 03/11/25 10:35) Swelling of Lip/Tongue/Throat neomycin (From Neosporin ([id number])) Allergy (Severe, Verified 03/11/25 10:35) Blister polymyxin B (From Neosporin ([id number])) Allergy (Severe, Verified 03/11/25 10:35) Blister sucralose (From Splenda (sucralose)) Allergy (Severe, Verified 03/11/25 10:35) Swelling of Lip/Tongue/Throat insulin glargine (From Lantus U-100 Insulin) Allergy (Intermediate, Verified 03/11/25 10:35) Redness of Skin Artificial Sweetener Allergy (Severe, Uncoded 03/11/25 10:35) Swelling of Lip/Tongue/Throat Medication Reconciliation gabapentin 800 mg tablet 800 mg PO TID 12/29/20 [History Confirmed 03/11/25] insulin lispro 100 unit/mL subcutaneous pen (Humalog KwikPen (U-100) Insulin) 10 unit subcut 3XD 07/24/24 [History Confirmed 03/11/25] insulin degludec 200 unit/mL (3 mL) subcutaneous pen (Tresiba FlexTouch U-200 insulin) 15 unit (0.075 mL) subcut QDAY #9 mL 07/27/24 [Rx Confirmed 03/11/25] montelukast 10 mg tablet 10 mg PO QDAY 12/28/24 [History Confirmed 03/11/25] amoxicillin 875 mg-potassium clavulanate 125 mg tablet 1 tab PO BID 3 months #180 tabs 02/07/25 [Rx Confirmed 03/11/25] hydrocodone 5 mg-acetaminophen 325 mg tablet 1 tab PO TID #10 tabs 02/07/25 [Rx Confirmed 03/11/25] sodium chloride-hypochlorous acid 0.033 % irrigation solution (Vashe) 1 irrig irrigation QDAY PRN wound care #3,000 mL 03/11/25 [Rx] MA Intake Visit Data Collection New Patient or Established: Established Patient (seen at [facility] within 3 years) Seen by Clinical Staff ONLY (RN/ANIA): No Reason for Visit:: 3 WEEK F/U Pain Present Currently: Yes Pain Location: Ankle Pain Scale Used: Velazquez-Valentine/Numerical Television Service Engineer Required: No PCP or OBGYN visit in last 3 months: Yes Hx Now: No Do You Feel Safe at Home: Yes Authorities Contacted: N/A Smoking Status Smoking Status: Current every day smoker Cessation Counseling Provided: ROMEL was advised that quitting smoking is the single most important factor to protect the health of themselves and their family. Discussed the benefits of quitting smoking with patient. Encouraged patient to quit smoking and provided Cessation assistance materials and resources. Tobacco Use: Cigarette Years smoked: 1 Are you interested in quitting?: No Would you like additional Smoking Cessation Counseling?: No Immunization / Flu Flu Vaccine in the Last 12 Months: Yes Flu Vaccine Exclusion Criteria: Already Received Past Medical History Past Medical History NEUROLOGIC: Positive Neurological Disorders, Brain Tumor and Seizures CARDIAC: Positive Cardiac Disorders and Hypertension; Negative Congestive Heart Failure RESPIRATORY: Negative Chronic Obstructive Pulmonary Disease (COPD) or Asthma GASTROINTESTINAL: Negative Gastrointestinal Disorders GENITOURINARY: Negative Genitourinary Disorders or Renal Disease REPRODUCTIVE: Positive Previous Pregnancies MUSCULOSKELETAL: Positive Osteoporosis ENT: Positive Cataracts ENDOCRINE: Positive Endocrine Disorders, Diabetes Mellitus Type 2 and Hypothyroidism; Negative Diabetes Mellitus Type 1 HEMATOLOGIC: Negative Blood Disorders or Sickle Cell Disease PSYCHO/SOCIAL: Positive Anxiety OTHER HISTORY: Positive Blood Transfusions and Chicken Pox; Negative Hospitalization, Autoimmune Disease, Down Syndrome, Developmental Delay, Shingles, Falls, Blood Transfusion Reaction, Anesthesia Reactions, Organ Transplant or Cancer Family History FAMILY HISTORY: Positive Family Cardiac Disorders, Family Gastrointestinal Problems and Family Cancer; Negative Family Psychiatric Problems, Family Respiratory Disorders, Family Surgery or Family Anesthesia Reaction Surgical History SURGICAL: Negative Organ Transplant Social History SMOKING STATUS: Smoking status: Current every day smoker SECOND HAND EXPOSURE: second hand exposure: No ALCOHOL: Alcohol Intake: Never HOUSING: Housing: House LIVES WITH: Lives With: Family HPI HPI Narrative 59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 Patient reports she feels well overall, her family has been caring for the wound with saline twice daily and her finger sticks have been in the low 100s. Her ankle pain is stable and she walking more. 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, treated for osteomyelitis of the left second toe in July 2024 and again in December 2024, now s/p left 2nd toe amputation 02/05 here for planned follow-up, recovering well overall with no signs of active infection Plan: daycare manager recommended Vashe vs honey (pt is allergic to honey), she requested a prescription for Vashe though I explained it is not reimbursed Will follow up in 3 weeks Office Procedures GNS Level of Care Nursing/Assessment Patient Status: Established Patient Nursing Assessment/Reassesment: Medication Reconciliation, Update PMH in EMR and Vital Signs Coordination of Care: Complex Care and Chronic Disease 1-5, Consent,records obtained, informed consent, Education Simp Pt/Fam, Results/Orders obtained and Staff clarify orders Established Patient Charge Established Patient Point Assignment: 90 Established Patient Point Charge: EP Level 3 (80-115) Patient Portal Questionaires Social History Living Situation History Housing: House Housing Other:: pt lives with , son, and her mom Tobacco History Smoking Status: Current every day smoker Packs per Day: 1 Second Hand Smoke Exposure: No Alcohol History Alcohol Intake: Never Domestic Abuse History Do You Feel Safe at Home: Yes Review of Systems Report any current symptoms Only answer those that you have currently: Past Medical History Past Medical History Have you ever been diagnosed with any of the following: Neurological Problems Brain Tumor: Yes Seizures: Yes Cardiology Problems Congestive Heart Failure: No Hypertension: Yes Respiratory Problems Chronic Obstructive Pulmonary Disease (COPD): No Asthma: No Genital/Urinary Problems Renal Disease: No Reproductive Problems Previous Pregnancies: Yes Musculoskeletal Problems Osteoporosis: Yes Head,Eye,Nose,Throat Problems Cataracts: Yes Endocrine Problems Diabetes Mellitus Type 1: No Diabetes Mellitus Type 2: Yes Hypothyroidism: Yes Blood Problems Sickle Cell Disease: No Psychologic Problems Anxiety: Yes Other Problems Hospitalization: No Autoimmune Disease: No Down Syndrome: No Developmental Delay: No Shingles: No Falls: No Blood Transfusions: Yes Blood Transfusion Reaction: No Anesthesia Reactions: No Organ Transplant: No Chicken Pox: Yes Cancer: No
== END 2025-03-11 11:27 | disposition home or self-care (01) ==
LOC: HODSRG 10:21
PROVIDERS: PCP Physician Assistant; Referring Provider Physician Assistant; Supervising Provider Surgery; Visit Provider Surgery
DX: Z47.81 Encounter for orthopedic aftercare following surgical amputation (principal); Z89.422 Acquired absence of other left toe(s); E11.9 Type 2 diabetes mellitus without complications; F17.210 Nicotine dependence, cigarettes, uncomplicated; Z71.6 Tobacco abuse counseling; I10 Essential (primary) hypertension; E03.9 Hypothyroidism, unspecified
CPT/HCPCS: 99213; G0463

== ENCOUNTER → 2025-03-20 | Outpatient (CLI) | payer MEDICARE, MEDICAID, SELFPAY | END | disposition home or self-care (01) | LOC: SWHD 09:51 | PROVIDERS: PCP Nurse Practitioner Family; Referring Provider Nurse Practitioner Family; Visit Provider Student in an Organized Health Care Education/Training Program | DX: S91.302A Unspecified open wound, left foot, initial encounter (principal); X58.XXXA Exposure to other specified factors, initial encounter; T81.89XA Other complications of procedures, not elsewhere classified, initial encounter; L97.521 Non-pressure chronic ulcer of other part of left foot limited to breakdown of skin; E66.9 Obesity, unspecified; L03.90 Cellulitis, unspecified; Z89.421 Acquired absence of other right toe(s); M86.9 Osteomyelitis, unspecified; I73.9 Peripheral vascular disease, unspecified; F17.200 Nicotine dependence, unspecified, uncomplicated; M06.9 Rheumatoid arthritis, unspecified; D64.9 Anemia, unspecified; E11.40 Type 2 diabetes mellitus with diabetic neuropathy, unspecified; Z79.4 Long term (current) use of insulin | CPT/HCPCS: 97597 ==

== ENCOUNTER 2025-04-01 10:08 | Outpatient (AMB) | payer MEDICARE, MEDICAID, SELFPAY ==
[2025-04-01 10:33] VITALS: BP 172/81; PULSE 82; RESP 18; TEMP 36.6; O2SAT 97; BMI 27.3
--- NOTE | 2025-04-01 10:33 | GSCOFFNT_ITS ---
[facility] - [facility] 04/01/25 10:33 Height 1.6 m Height Method Measured Weight 69.91 kg Weight Measurement Method Standing Scale BMI 27.3 BP 172/81 H Blood Pressure Source Automatic Cuff Blood Pressure Location Left Upper Arm Position Sitting Respiration 18 Pulse 82 Pulse Source Monitor Temp 97.8 F Temp Source Temporal Artery Scan Pulse Oximetry (%) 97 Oxygen Delivery Method Room Air Med/Allergies Allergies & Medications Allergies animal dander Allergy (Severe, Verified 04/01/25 10:34) Swelling of Lip/Tongue/Throat bacitracin Allergy (Severe, Verified 04/01/25 10:34) Blister honey Allergy (Severe, Verified 04/01/25 10:34) Swelling of Lip/Tongue/Throat neomycin (From Neosporin ([id number])) Allergy (Severe, Verified 04/01/25 10:34) Blister polymyxin B (From Neosporin ([id number])) Allergy (Severe, Verified 04/01/25 10:34) Blister sucralose (From Splenda (sucralose)) Allergy (Severe, Verified 04/01/25 10:34) Swelling of Lip/Tongue/Throat insulin glargine (From Lantus U-100 Insulin) Allergy (Intermediate, Verified 04/01/25 10:34) Redness of Skin Artificial Sweetener Allergy (Severe, Uncoded 04/01/25 10:34) Swelling of Lip/Tongue/Throat Medication Reconciliation gabapentin 800 mg tablet 800 mg PO TID 12/29/20 [History Confirmed 04/01/25] insulin lispro 100 unit/mL subcutaneous pen (Humalog KwikPen (U-100) Insulin) 10 unit subcut 3XD 07/24/24 [History Confirmed 04/01/25] insulin degludec 200 unit/mL (3 mL) subcutaneous pen (Tresiba FlexTouch U-200 insulin) 15 unit (0.075 mL) subcut QDAY #9 mL 07/27/24 [Rx Confirmed 04/01/25] montelukast 10 mg tablet 10 mg PO QDAY 12/28/24 [History Confirmed 04/01/25] amoxicillin 875 mg-potassium clavulanate 125 mg tablet 1 tab PO BID 3 months #180 tabs 02/07/25 [Rx Confirmed 04/01/25] hydrocodone 5 mg-acetaminophen 325 mg tablet 1 tab PO TID #10 tabs 02/07/25 [Rx Confirmed 04/01/25] sodium chloride-hypochlorous acid 0.033 % irrigation solution (Vashe) 1 irrig irrigation QDAY PRN wound care #3,000 mL 03/11/25 [Rx Confirmed 04/01/25] ANIA Intake Visit Data Collection New Patient or Established: Established Patient (seen at [facility] within 3 years) Seen by Clinical Staff ONLY (RN/MA): No Reason for Visit:: FOLLOW UP Pain Present Currently: No Pain Scale Used: Velazquez-Valentine/Numerical Questioned Documents Examiner Required: No PCP or OBGYN visit in last 3 months: Yes Hx Now: No Do You Feel Safe at Home: Yes Authorities Contacted: N/A Smoking Status Smoking Status: Current every day smoker Cessation Counseling Provided: ROMEL was advised that quitting smoking is the single most important factor to protect the health of themselves and their family. Discussed the benefits of quitting smoking with patient. Encouraged patient to quit smoking and provided Cessation assistance materials and resources. Tobacco Use: Cigarette Years smoked: 30 Are you interested in quitting?: No Would you like additional Smoking Cessation Counseling?: No Immunization / Flu Flu Vaccine in the Last 12 Months: Yes Flu Vaccine Exclusion Criteria: Already Received Past Medical History Past Medical History NEUROLOGIC: Positive Neurological Disorders, Brain Tumor and Seizures CARDIAC: Positive Cardiac Disorders and Hypertension; Negative Congestive Heart Failure RESPIRATORY: Negative Chronic Obstructive Pulmonary Disease (COPD) or Asthma GASTROINTESTINAL: Negative Gastrointestinal Disorders GENITOURINARY: Negative Genitourinary Disorders or Renal Disease REPRODUCTIVE: Positive Previous Pregnancies MUSCULOSKELETAL: Positive Osteoporosis ENT: Positive Cataracts ENDOCRINE: Positive Endocrine Disorders, Diabetes Mellitus Type 2 and Hypothyroidism; Negative Diabetes Mellitus Type 1 HEMATOLOGIC: Negative Blood Disorders or Sickle Cell Disease PSYCHO/SOCIAL: Positive Anxiety OTHER HISTORY: Positive Blood Transfusions and Chicken Pox; Negative Hospitalization, Autoimmune Disease, Down Syndrome, Developmental Delay, Shingles, Falls, Blood Transfusion Reaction, Anesthesia Reactions, Organ Transplant or Cancer Family History FAMILY HISTORY: Positive Family Cardiac Disorders, Family Gastrointestinal Problems and Family Cancer; Negative Family Psychiatric Problems, Family Respiratory Disorders, Family Surgery or Family Anesthesia Reaction Surgical History SURGICAL: Negative Organ Transplant Social History SMOKING STATUS: Smoking status: Current every day smoker SECOND HAND EXPOSURE: second hand exposure: No ALCOHOL: Alcohol Intake: Never HOUSING: Housing: House LIVES WITH: Lives With: Family HPI HPI Narrative HISTORY OF PRESENT ILLNESS IJackelin, have obtained verbal consent from the patient, to be recorded during this encounter which may include, but not limited to, medical history, examination, treatment plans, and relevant health information.? Patient was informed that recording will be read and reviewed by myself before inclusion in the medical chart. The patient is here for a follow-up of her toe amputation. 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 She reports that the adjacent toe to the amputated one remains swollen and enlarged, although she does not experience any pain in that area.She reports she had some drainage from the lateral aspect of the toe which has since resolved. She is able to walk without difficulty and notes that the swelling in her ankle has decreased. She has been using a boot for additional support, which she finds beneficial. She is curious about whether she should continue wrapping the area tightly and if it is safe to shower with the wound exposed. ASSESSMENT AND PLAN 1. Post-amputation follow-up. The wound is healing well, with no signs of infection. The swelling has significantly reduced, and the tissue appears healthy. Continue the current wound care regimen, including cleaning and drying the wound after showering. Showering without covering the wound is permissible. Use a boot for additional support as needed. 2. Swelling of adjacent toe. The adjacent toe remains swollen but is not painful. There is no indication of infection or pus. The swelling appears to be related to a previous allergic reaction and trauma from a belle tail. The toe feels firm and not squishy. Monitor the swelling and continue to observe for any changes. Risks, benefits, and alternatives of treatment were discussed. The patient was informed that the wound is healing well and that the swelling in the adjacent toe does not appear to be infected. The benefits of continuing the current wound care regimen were emphasized, including the importance of cleaning and drying the wound after showering. The patient was advised that showering without covering the wound is acceptable due to the well-healed state of the wound. Using a boot for additional support was recommended to help manage ankle pain and swelling. No additional supplies were deemed necessary at this time. Follow-up A follow-up visit is scheduled for 3 weeks. ROS Review of Systems Systems Reviewed: All systems reviewed, normal except as documented Objective/Exam General General Appearance: alert, cooperative and well groomed Resp Respiratory exam: Absent respiratory distress Extremities Extremities exam: Present other (Left second toe wound healing well with minimal fibrinous tissue, no surrounding erythema, significantly contracted compared to prior exam. The lateral aspect of the third toe is somewhat swollen but there is no fluctuance, erythema or tenderness and no active drainage) Assessment & Plan Diagnosis / Problem List (1) Osteomyelitis: Status: Acute Assessment & Plan: The wound is healing well, with no signs of infection. The swelling has significantly reduced, and the tissue appears healthy. Continue the current wound care regimen, including cleaning and drying the wound after showering. Showering without covering the wound is permissible. Use a boot for additional support as needed. Orders: Orders Silver nitrate applicator topical stick Today Office Procedures GNS Level of Care Nursing/Assessment Patient Status: Established Patient Nursing Assessment/Reassesment: Medication Reconciliation, Update PMH in EMR and Vital Signs Coordination of Care: Complex Care and Chronic Disease 1-5, Consent,records obtained, informed consent, Education Simp Pt/Fam, Results/Orders obtained and Staff clarify orders Established Patient Charge Established Patient Point Assignment: 90 Established Patient Point Charge: EP Level 3 (80-115) Patient Portal Questionaires Social History Living Situation History Housing: House Housing Other:: pt lives with , son, and her mom Tobacco History Smoking Status: Current every day smoker Packs per Day: 1 Second Hand Smoke Exposure: No Alcohol History Alcohol Intake: Never Domestic Abuse History Do You Feel Safe at Home: Yes Review of Systems Report any current symptoms Only answer those that you have currently: Past Medical History Past Medical History Have you ever been diagnosed with any of the following: Neurological Problems Brain Tumor: Yes Seizures: Yes Cardiology Problems Congestive Heart Failure: No Hypertension: Yes Respiratory Problems Chronic Obstructive Pulmonary Disease (COPD): No Asthma: No Genital/Urinary Problems Renal Disease: No Reproductive Problems Previous Pregnancies: Yes Musculoskeletal Problems Osteoporosis: Yes Head,Eye,Nose,Throat Problems Cataracts: Yes Endocrine Problems Diabetes Mellitus Type 1: No Diabetes Mellitus Type 2: Yes Hypothyroidism: Yes Blood Problems Sickle Cell Disease: No Psychologic Problems Anxiety: Yes Other Problems Hospitalization: No Autoimmune Disease: No Down Syndrome: No Developmental Delay: No Shingles: No Falls: No Blood Transfusions: Yes Blood Transfusion Reaction: No Anesthesia Reactions: No Organ Transplant: No Chicken Pox: Yes Cancer: No
== END 2025-04-01 11:05 | disposition home or self-care (01) ==
LOC: HODSRG 10:08
PROVIDERS: PCP Nurse Practitioner Family; Referring Provider Nurse Practitioner Family; Supervising Provider Surgery; Visit Provider Surgery
DX: Z47.81 Encounter for orthopedic aftercare following surgical amputation (principal); Z89.422 Acquired absence of other left toe(s); M79.89 Other specified soft tissue disorders; I10 Essential (primary) hypertension; E11.9 Type 2 diabetes mellitus without complications; E03.9 Hypothyroidism, unspecified
CPT/HCPCS: 99213; G0463

== ENCOUNTER 2025-04-15 10:00 | Outpatient (AMB) | payer MEDICARE, MEDICAID, SELFPAY ==
[2025-04-15 10:24] VITALS: BP 132/77; PULSE 77; RESP 16; TEMP 36.4; O2SAT 97; BMI 26.9
--- NOTE | 2025-04-15 10:24 | PD.GSCLVISIT ---
Vital Signs - [facility] 04/15/25 10:24 Height 1.6 m Height Method Measured Weight 69.003 kg Weight Measurement Method Standing Scale BMI 26.9 BP 132/77 H Blood Pressure Source Automatic Cuff Blood Pressure Location Left Upper Arm Position Sitting Respiration 16 Pulse 77 Pulse Source Monitor Temp 97.5 F Temp Source Temporal Artery Scan Pulse Oximetry (%) 97 Oxygen Delivery Method Room Air Med/Allergies Allergies & Medications Allergies animal dander Allergy (Severe, Verified 04/15/25 10:25) Swelling of Lip/Tongue/Throat bacitracin Allergy (Severe, Verified 04/15/25 10:25) Blister honey Allergy (Severe, Verified 04/15/25 10:25) Swelling of Lip/Tongue/Throat neomycin (From Neosporin ([id number])) Allergy (Severe, Verified 04/15/25 10:25) Blister polymyxin B (From Neosporin ([id number])) Allergy (Severe, Verified 04/15/25 10:25) Blister sucralose (From Splenda (sucralose)) Allergy (Severe, Verified 04/15/25 10:25) Swelling of Lip/Tongue/Throat insulin glargine (From Lantus U-100 Insulin) Allergy (Intermediate, Verified 04/15/25 10:25) Redness of Skin Artificial Sweetener Allergy (Severe, Uncoded 04/15/25 10:25) Swelling of Lip/Tongue/Throat Medication Reconciliation gabapentin 800 mg tablet 800 mg PO TID 12/29/20 [History Confirmed 04/15/25] insulin lispro 100 unit/mL subcutaneous pen (Humalog KwikPen (U-100) Insulin) 10 unit subcut 3XD 07/24/24 [History Confirmed 04/15/25] insulin degludec 200 unit/mL (3 mL) subcutaneous pen (Tresiba FlexTouch U-200 insulin) 15 unit (0.075 mL) subcut QDAY #9 mL 07/27/24 [Rx Confirmed 04/15/25] montelukast 10 mg tablet 10 mg PO QDAY 12/28/24 [History Confirmed 04/15/25] amoxicillin 875 mg-potassium clavulanate 125 mg tablet 1 tab PO BID 3 months #180 tabs 02/07/25 [Rx Confirmed 04/15/25] hydrocodone 5 mg-acetaminophen 325 mg tablet 1 tab PO TID #10 tabs 02/07/25 [Rx Confirmed 04/15/25] sodium chloride-hypochlorous acid 0.033 % irrigation solution (Vashe) 1 irrig irrigation QDAY PRN wound care #3,000 mL 03/11/25 [Rx Confirmed 04/15/25] ANIA Intake Visit Data Collection New Patient or Established: Established Patient (seen at [facility] within 3 years) Seen by Clinical Staff ONLY (RN/MA): No Reason for Visit:: 2 WEEK F/U Pain Present Currently: No Pain Scale Used: Velazquez-Valentine/Numerical Academic Affairs Dean Required: No PCP or OBGYN visit in last 3 months: Yes Hx Now: No Do You Feel Safe at Home: Yes Authorities Contacted: N/A Smoking Status Smoking Status: Current every day smoker Cessation Counseling Provided: ROMEL was advised that quitting smoking is the single most important factor to protect the health of themselves and their family. Discussed the benefits of quitting smoking with patient. Encouraged patient to quit smoking and provided Cessation assistance materials and resources. Tobacco Use: Cigarette Years smoked: 30 Are you interested in quitting?: No Would you like additional Smoking Cessation Counseling?: No Immunization / Flu Flu Vaccine in the Last 12 Months: No Flu Vaccine Exclusion Criteria: Already Received Past Medical History Past Medical History NEUROLOGIC: Positive Neurological Disorders, Brain Tumor and Seizures CARDIAC: Positive Cardiac Disorders and Hypertension; Negative Congestive Heart Failure RESPIRATORY: Negative Chronic Obstructive Pulmonary Disease (COPD) or Asthma GASTROINTESTINAL: Negative Gastrointestinal Disorders GENITOURINARY: Negative Genitourinary Disorders or Renal Disease REPRODUCTIVE: Positive Previous Pregnancies MUSCULOSKELETAL: Positive Osteoporosis ENT: Positive Cataracts ENDOCRINE: Positive Endocrine Disorders, Diabetes Mellitus Type 2 and Hypothyroidism; Negative Diabetes Mellitus Type 1 HEMATOLOGIC: Negative Blood Disorders or Sickle Cell Disease PSYCHO/SOCIAL: Positive Anxiety OTHER HISTORY: Positive Blood Transfusions and Chicken Pox; Negative Hospitalization, Autoimmune Disease, Down Syndrome, Developmental Delay, Shingles, Falls, Blood Transfusion Reaction, Anesthesia Reactions, Organ Transplant or Cancer Family History FAMILY HISTORY: Positive Family Cardiac Disorders, Family Gastrointestinal Problems and Family Cancer; Negative Family Psychiatric Problems, Family Respiratory Disorders, Family Surgery or Family Anesthesia Reaction Surgical History SURGICAL: Negative Organ Transplant Social History SMOKING STATUS: Smoking status: Current every day smoker SECOND HAND EXPOSURE: second hand exposure: No ALCOHOL: Alcohol Intake: Never HOUSING: Housing: House LIVES WITH: Lives With: Family HPI HPI Narrative HISTORY OF PRESENT ILLNESS I, Jackelin Kwock, have obtained verbal consent from the patient, to be recorded during this encounter which may include, but not limited to, medical history, examination, treatment plans, and relevant health information.? Patient was informed that recording will be read and reviewed by myself before inclusion in the medical chart. The patient is here for a follow-up visit after undergoing a toe amputation. She reports that her foot is in a better condition, with the exception of one toe that remains swollen and painful. There is no drainage from the site. Her mobility has improved, allowing her to walk more, although she still experiences instability. She also mentions that her vision is poor. She has been managing the wound by keeping it clean and dry, applying callus cream and continuing to wrap the foot. She also uses a wound cleanser as part of her care routine. Her blood sugar levels have been fluctuating, with readings up to 110 and a high of 190 this morning. ASSESSMENT AND PLAN 1. Post-toe amputation follow-up. The ankle appears normal with no signs of infection or pus. The wound is healing well. Continue the current wound care regimen, including cleaning, drying, and applying callus cream. Clindamycin should be applied every other day, and wound cleanser should be used as needed. Soaking the wound and gently scraping off any hard areas is recommended if necessary. 2. Diabetes Mellitus. Blood sugar levels remain elevated, with a recent reading of 190. Continue monitoring blood sugar levels and maintain the current management plan. Risks, benefits, and alternatives of the treatment plan were discussed. The importance of proper wound care to prevent infection and the need for regular blood sugar monitoring to manage diabetes were emphasized. The patient was advised to call if any problems or questions arise. Follow-up visit is scheduled for next month. 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, treated for osteomyelitis of the left second toe in July 2024 and again in December 2024, now s/p left 2nd toe amputation 02/05, recovering well Plan: F/u in 1 month Office Procedures GNS Level of Care Nursing/Assessment Patient Status: Established Patient Nursing Assessment/Reassesment: Medication Reconciliation, Update PMH in EMR and Vital Signs Coordination of Care: Complex Care and Chronic Disease 1-5, Education Complex Pt/Fam, Consent,records obtained, informed consent, Results/Orders obtained and Staff clarify orders Established Patient Charge Established Patient Point Assignment: 95 Established Patient Point Charge: EP Level 3 (80-115) Patient Portal Questionaires Social History Living Situation History Housing: House Housing Other:: pt lives with , son, and her mom Tobacco History Smoking Status: Current every day smoker Packs per Day: 1 Second Hand Smoke Exposure: No Alcohol History Alcohol Intake: Never Domestic Abuse History Do You Feel Safe at Home: Yes Review of Systems Report any current symptoms Only answer those that you have currently: Past Medical History Past Medical History Have you ever been diagnosed with any of the following: Neurological Problems Brain Tumor: Yes Seizures: Yes Cardiology Problems Congestive Heart Failure: No Hypertension: Yes Respiratory Problems Chronic Obstructive Pulmonary Disease (COPD): No Asthma: No Genital/Urinary Problems Renal Disease: No Reproductive Problems Previous Pregnancies: Yes Musculoskeletal Problems Osteoporosis: Yes Head,Eye,Nose,Throat Problems Cataracts: Yes Endocrine Problems Diabetes Mellitus Type 1: No Diabetes Mellitus Type 2: Yes Hypothyroidism: Yes Blood Problems Sickle Cell Disease: No Psychologic Problems Anxiety: Yes Other Problems Hospitalization: No Autoimmune Disease: No Down Syndrome: No Developmental Delay: No Shingles: No Falls: No Blood Transfusions: Yes Blood Transfusion Reaction: No Anesthesia Reactions: No Organ Transplant: No Chicken Pox: Yes Cancer: No
== END 2025-04-15 10:49 | disposition home or self-care (01) ==
LOC: HODSRG 10:00
PROVIDERS: PCP Nurse Practitioner Family; Referring Provider Nurse Practitioner Family; Supervising Provider Surgery; Visit Provider Surgery
DX: Z47.81 Encounter for orthopedic aftercare following surgical amputation (principal); Z89.422 Acquired absence of other left toe(s); E11.9 Type 2 diabetes mellitus without complications; I10 Essential (primary) hypertension; F17.210 Nicotine dependence, cigarettes, uncomplicated; Z71.6 Tobacco abuse counseling
CPT/HCPCS: 99213; G0463

== ENCOUNTER 2025-05-13 09:56 | Outpatient (AMB) | payer MEDICARE, MEDICAID, SELFPAY ==
[2025-05-13 10:09] VITALS: BP 130/75; PULSE 78; RESP 18; TEMP 36.1; O2SAT 98; BMI 26.1
--- NOTE | 2025-05-13 10:09 | PD.GSCLVISIT ---
Vital Signs - [facility] 05/13/25 10:09 Height 1.6 m Height Method Stated Weight 66.877 kg Weight Measurement Method Standing Scale BMI 26.1 BP 130/75 Blood Pressure Source Automatic Cuff Blood Pressure Location Right Upper Arm Position Sitting Respiration 18 Pulse 78 Pulse Source Monitor Temp 96.9 F Temp Source Temporal Artery Scan Pulse Oximetry (%) 98 Oxygen Delivery Method Room Air Med/Allergies Allergies & Medications Allergies animal dander Allergy (Severe, Verified 05/13/25 10:10) Swelling of Lip/Tongue/Throat bacitracin Allergy (Severe, Verified 05/13/25 10:10) Blister honey Allergy (Severe, Verified 05/13/25 10:10) Swelling of Lip/Tongue/Throat neomycin (From Neosporin ([id number])) Allergy (Severe, Verified 05/13/25 10:10) Blister polymyxin B (From Neosporin ([id number])) Allergy (Severe, Verified 05/13/25 10:10) Blister sucralose (From Splenda (sucralose)) Allergy (Severe, Verified 05/13/25 10:10) Swelling of Lip/Tongue/Throat insulin glargine (From Lantus U-100 Insulin) Allergy (Intermediate, Verified 05/13/25 10:10) Redness of Skin Artificial Sweetener Allergy (Severe, Uncoded 05/13/25 10:10) Swelling of Lip/Tongue/Throat Medication Reconciliation gabapentin 800 mg tablet 800 mg PO TID 12/29/20 [History Confirmed 05/13/25] insulin lispro 100 unit/mL subcutaneous pen (Humalog KwikPen (U-100) Insulin) 10 unit subcut 3XD 07/24/24 [History Confirmed 05/13/25] insulin degludec 200 unit/mL (3 mL) subcutaneous pen (Tresiba FlexTouch U-200 insulin) 15 unit (0.075 mL) subcut QDAY #9 mL 07/27/24 [Rx Confirmed 05/13/25] montelukast 10 mg tablet 10 mg PO QDAY 12/28/24 [History Confirmed 05/13/25] hydrocodone 5 mg-acetaminophen 325 mg tablet 1 tab PO TID #10 tabs 02/07/25 [Rx Confirmed 05/13/25] sodium chloride-hypochlorous acid 0.033 % irrigation solution (Vashe) 1 irrig irrigation QDAY PRN wound care #3,000 mL 03/11/25 [Rx Confirmed 05/13/25] ANIA Intake Visit Data Collection New Patient or Established: Established Patient (seen at [facility] within 3 years) Seen by Clinical Staff ONLY (RN/ANIA): No Reason for Visit:: ONE MONTH FOLLOW UP Pain Present Currently: No Pain scale:: 0 Pain Scale Used: Velazquez-Valentine/[facility]ical [facility] Manager Required: No PCP or OBGYN visit in last 3 months: Yes Hx Now: No Do You Feel Safe at Home: Yes Authorities Contacted: N/A Smoking Status Smoking Status: Current every day smoker Cessation Counseling Provided: ROMEL was advised that quitting smoking is the single most important factor to protect the health of themselves and their family. Discussed the benefits of quitting smoking with patient. Encouraged patient to quit smoking and provided Cessation assistance materials and resources. Tobacco Use: Cigarette Years smoked: 25 Are you interested in quitting?: No Immunization / Flu Flu Vaccine in the Last 12 Months: No Flu Vaccine Exclusion Criteria: Allergy to Flu Vaccine Past Medical History Past Medical History NEUROLOGIC: Positive Neurological Disorders, Brain Tumor and Seizures CARDIAC: Positive Cardiac Disorders and Hypertension; Negative Congestive Heart Failure RESPIRATORY: Negative Chronic Obstructive Pulmonary Disease (COPD) or Asthma GASTROINTESTINAL: Negative Gastrointestinal Disorders GENITOURINARY: Negative Genitourinary Disorders or Renal Disease REPRODUCTIVE: Positive Previous Pregnancies MUSCULOSKELETAL: Positive Osteoporosis ENT: Positive Cataracts ENDOCRINE: Positive Endocrine Disorders, Diabetes Mellitus Type 2 and Hypothyroidism; Negative Diabetes Mellitus Type 1 HEMATOLOGIC: Negative Blood Disorders or Sickle Cell Disease PSYCHO/SOCIAL: Positive Anxiety OTHER HISTORY: Positive Blood Transfusions and Chicken Pox; Negative Hospitalization, Autoimmune Disease, Down Syndrome, Developmental Delay, Shingles, Falls, Blood Transfusion Reaction, Anesthesia Reactions, Organ Transplant or Cancer Family History FAMILY HISTORY: Positive Family Cardiac Disorders, Family Gastrointestinal Problems and Family Cancer; Negative Family Psychiatric Problems, Family Respiratory Disorders, Family Surgery or Family Anesthesia Reaction Surgical History SURGICAL: Negative Organ Transplant Social History SMOKING STATUS: Smoking status: Current every day smoker SECOND HAND EXPOSURE: second hand exposure: No SUBSTANCE USE: Substance use type: does not use ALCOHOL: Alcohol Intake: Never HOUSING: Housing: House LIVES WITH: Lives With: Family Travel Risk Travel Hx Recent Travel: No HPI HPI Narrative The patient is here for a follow-up visit after undergoing left 2nd toe amputation on 02/05/25 Pt reports feeling well overall. For the last few days she has not needed any dressing on the wound and would like to try wearing regular shoes for the first time since surgery. Her finger sticks remain well controlled and she has no pain ROS Review of Systems Systems Reviewed: All systems reviewed, normal except as documented Objective/Exam General General Appearance: alert, cooperative and well groomed Resp Respiratory exam: Absent respiratory distress Extremities Extremities exam: Present other (left 2nd toe wound bed healed with no erythema, no fluctuance or tenderness) Assessment & Plan Diagnosis / Problem List (1) Osteomyelitis: Status: Acute Assessment & Plan: 59F s/p left 2nd toe amputation 02/05/25, recovered very well with wound now fully healed Plan: F/u in 2 mos Office Procedures GNS Level of Care Nursing/Assessment Patient Status: Established Patient Nursing Assessment/Reassesment: Medication Reconciliation, Update PMH in EMR and Vital Signs Coordination of Care: Complex Care and Chronic Disease 1-5, Education Complex Pt/Fam, Consent,records obtained, informed consent, Results/Orders obtained and Staff clarify orders Established Patient Charge Established Patient Point Assignment: 95 Established Patient Point Charge: EP Level 3 (80-115) Patient Portal Questionaires Social History Living Situation History Housing: House Housing Other:: pt lives with , son, and her mom Tobacco History Smoking Status: Current every day smoker Packs per Day: 1 Second Hand Smoke Exposure: No Alcohol History Alcohol Intake: Never Domestic Abuse History Do You Feel Safe at Home: Yes Review of Systems Report any current symptoms Only answer those that you have currently: Past Medical History Past Medical History Have you ever been diagnosed with any of the following: Neurological Problems Brain Tumor: Yes Seizures: Yes Cardiology Problems Congestive Heart Failure: No Hypertension: Yes Respiratory Problems Chronic Obstructive Pulmonary Disease (COPD): No Asthma: No Genital/Urinary Problems Renal Disease: No Reproductive Problems Previous Pregnancies: Yes Musculoskeletal Problems Osteoporosis: Yes Head,Eye,Nose,Throat Problems Cataracts: Yes Endocrine Problems Diabetes Mellitus Type 1: No Diabetes Mellitus Type 2: Yes Hypothyroidism: Yes Blood Problems Sickle Cell Disease: No Psychologic Problems Anxiety: Yes Other Problems Hospitalization: No Autoimmune Disease: No Down Syndrome: No Developmental Delay: No Shingles: No Falls: No Blood Transfusions: Yes Blood Transfusion Reaction: No Anesthesia Reactions: No Organ Transplant: No Chicken Pox: Yes Cancer: No
== END 2025-05-13 10:32 | disposition home or self-care (01) ==
LOC: HODSRG 09:56
PROVIDERS: PCP Nurse Practitioner Family; Referring Provider Nurse Practitioner Family; Supervising Provider Surgery; Visit Provider Surgery
DX: Z89.422 Acquired absence of other left toe(s) (principal); M86.9 Osteomyelitis, unspecified
CPT/HCPCS: 99213; G0463